=== PATIENT | female | born 1955 | race Caucasian/White ===

== ENCOUNTER → 2018-03-30 12:34 | Outpatient (CLI) | payer OTHER, MEDICAID, SELFPAY ==
--- NOTE | 2018-03-30 | DI.MG.S_ITS ---
BILATERAL DIGITAL SCREENING MAMMOGRAM 3D/2D WITH CAD: 03/30/2018 CLINICAL: Routine screening. Family history of breast cancer. Comparison is made to exams dated: 03/24/2017 mammogram, 05/12/2015 mammogram, and 05/08/2014 mammogram - [facility]. The tissue of both breasts is heterogeneously dense. This may lower the sensitivity of mammography. Current study was also evaluated with a Computer Aided Detection (CAD) system. No significant masses, calcifications, or other findings are seen in either breast. There has been no significant interval change. IMPRESSION: NEGATIVE There is no mammographic evidence of malignancy. A 1 year screening mammogram is recommended. This exam was interpreted at Station ID: [id number]. NOTE: For mammograms, a report in lay terms will be sent to the patient. Approximately 15% of breast malignancies will not be visualized mammographically. In the management of a palpable breast mass, a negative mammogram must not discourage biopsy of a clinically suspicious lesion. Electronically Signed By: Albin gracia/agli:03/30/2018 17:06:12 letter sent: Normal Exam ACR BI-RADS Category 1: Negative [id number]
== END ==
PROVIDERS: PCP Family Medicine; Visit Provider Nurse Practitioner Family
DX: Z12.31 Encounter for screening mammogram for malignant neoplasm of breast (principal); Z80.3 Family history of malignant neoplasm of breast
CPT/HCPCS: 77063; 77067

== ENCOUNTER → 2018-09-03 09:11 | Outpatient (CLI) | payer OTHER, SELFPAY ==
--- NOTE | 2018-09-03 | DI.US.S_ITS ---
PROCEDURE: US PELVIC COMPLETE INDICATIONS: CERVICAL POLYP TECHNIQUE: Real-time scanning was performed of the pelvic organs, with image documentation. Additional endovaginal scanning was necessary due to incomplete visualization of the adnexal and endometrial structures by transabdominal scanning. COMPARISON: None. FINDINGS: Transabdominal scanning: Limited scanning through the kidneys shows no hydronephrosis. No pathologic free abdominal or pelvic fluid. Anteverted uterus measures 6.5 x 2.9 x 3.7 cm. Endovaginal scanning: Uterus: Uterus is normal in size. The endometrium measures 1.9 mm in combined thickness. Trace amount of simple fluid is seen within the endometrial canal. No myometrial masses. The cervix has a sonographically normal appearance. No significant endocervical fluid or mass visible. Ovaries: Neither ovary was well seen. No suspicious adnexal masses. Fluid-filled bowel loops are present. IMPRESSION: 1. Normal sonographic appearance of the cervix. 2. Thin endometrium with trace amounts of simple fluid. 3. Nonvisualization of either ovary. Dictated by: Aleyda Colbert M.D. on 09/03/2018 at 10:24 Approved by: Aleyda Colbert M.D. on 09/03/2018 at 10:27
== END ==
PROVIDERS: PCP Family Medicine; Visit Provider Nurse Practitioner Family
DX: N84.1 Polyp of cervix uteri (principal)
CPT/HCPCS: 76856

== ENCOUNTER → 2018-12-07 11:52 | Outpatient (CLI) | payer OTHER, SELFPAY ==
--- NOTE | 2018-12-07 | DI.RAD.S_ITS ---
PROCEDURE: XR KNEE RT 3V INDICATIONS: TWISTED KNEE/SWELLING/PAIN TECHNIQUE: 3 views of the knee were acquired. COMPARISON: [facility], , KNEE 3V LEFT, 08/02/2007, 10:48. FINDINGS: Bones: No fractures or dislocations. No suspicious bony lesions. Scattered degenerative subchondral sclerosis and spurring. No definite joint space narrowing Soft tissues: No joint effusion. No suspicious soft tissue calcifications. IMPRESSION: No fracture. Mild joint degeneration. If the patient's pain or other symptoms persist, consider further evaluation with MRI Dictated by: Uche Potts M.D. on 12/07/2018 at 13:00 Approved by: Uche Potts M.D. on 12/07/2018 at 13:02
== END ==
PROVIDERS: PCP Nurse Practitioner Family; Visit Provider Nurse Practitioner Family
DX: M25.561 Pain in right knee (principal); M25.461 Effusion, right knee; M17.11 Unilateral primary osteoarthritis, right knee
CPT/HCPCS: 73562

== ENCOUNTER 2019-02-05 08:15 | Outpatient (RCR) | payer OTHER, SELFPAY ==
--- NOTE | 2018-10-09 15:40 | PT.OIE ---
Current Diagnoses Frequency of micturition (10/12/18) Provider Visit Care Team Role Provider Type SANDRA Miranda Attending Provider Non-Staff Primary Care Provider Specialty: Medical Address: [address] [place] [address], [id number] Email: Physical Therapy Initial Evaluation PT-OP-A Visit Information Start: 10/09/18 11:23 Freq: Status: Active Protocol: Document 10/09/18 11:24 LRN (Rec: 10/09/18 11:36 LRN [id number]) Out-Patient Physical Therapy Visit Information Visit Information Visit Type Treatment Note Visit Start Time 11:24 Visit Stop Time 12:15 Total Visit Minutes 51 Visit Number 1 Number of TURN LASTER Visits 0 Evaluation Information Evaluation Date 10/09/18 Precautions Precautions Hx of , adenoidectomy , tubal ligation, D&C. PT-OP-B Current Condition Start: 10/09/18 11:23 Freq: Status: Active Protocol: Document 10/09/18 11:24 LRN (Rec: 10/09/18 11:36 LRN [id number]) Current Condition History of Current Condition Onset Date 1 yr ago. Current Complaints Urgency to urinate sometimes. History of Current Condition With Oxybutynin now able to sleep through the night. History of 2 children. C- section first and episiotomy with 2nd. Tubal ligation - early 's. D & C. Prior Treatments and Tests Pelvic ultrasound for cyst on ovaries (found to be negative( . Developmental History Developmental History Long history of UTI for 15 yrs , and was taken off medications 4-5 yrs ago, then starting to have urgency and was put on Oxybutynin 1 yr ago for the urge. She has felt like she had a UTI, but tests were negative (was feeling urgency and burning with urination). Last summer was getting up 5-6 times/night. Treatment Goals Patient/Caregiver Goals Pt goal with therapy is to decrease number of times urinating during the day. 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 Current Functional Impairments (Reported) Functional Limitations- Other Limited in activities outside the home due to frequency of urination. Personal Factors Other Personal Factors That May Effect History of tubal ligation, D&C Therapy/Recovery , Anxiety controlled with medication Medication: Oxybutynin chloride PT-OP-C Subjective Start: 10/09/18 11:23 Freq: Status: Active Protocol: Document 10/09/18 11:24 LRN (Rec: 10/09/18 16:24 LRN [id number]) OP-PT Pain Assessment Comments Pain Comments Pt denies pain, except with palpation of PF internally on assessment. PT-OP-H Neuro Start: 10/09/18 11:23 Freq: Status: Active Protocol: Document 10/09/18 11:24 LRN (Rec: 10/09/18 16:24 LRN [id number]) Sensation Evaluation Comments Summary Comments Not formally assessed. Pt noted not feeling hardened stool in perineum. PT-OP-I Pelvic Floor Start: 10/09/18 11:23 Freq: Status: Active Protocol: Document 10/09/18 11:24 LRN (Rec: 10/09/18 16:24 LRN [id number]) Pelvic Floor Assessment Urine Pelvic Floor Surgery No Urinary Symptoms Urge Sensation Leakage Cause Exercise Voiding Frequency 6 times per day Nocturia 2 Bowel Bowel Symptoms Constipation Pelvic Clock Pelvic Clock 3-6 Tenderness Prolapse Cystocele Grade 2 Perineal Descent Resting Absent Bearing Present Contraction Ability Voluntary Contraction Absent Manual Muscle Testing Left 0 Manual Muscle Testing Right 0 Manual Muscle Testing Anterior 0 Manual Muscle Testing Posterior 0 Comments Pelvic Floor Comments Pt assists with gluteal and hip AD muscles PT-OP-J Posture/Palpation/Skin Start: 10/09/18 11:23 Freq: Status: Active Protocol: Document 10/09/18 11:24 LRN (Rec: 10/09/18 17:03 LRN [id number]) Posture Evaluation Comments Posture Comments Standing: Pt demonstrates moderate forward head posturing, increased lordosis, elevated R shoulder and scapula, C-curve of the spine with the apex on the right, level pelvis. PT-OP-K Range of Motion Start: 10/09/18 11:23 Freq: Status: Active Protocol: Document 10/09/18 11:24 LRN (Rec: 10/09/18 17:03 LRN [id number]) Hip Goniometric Range of Motion Hip Right Passive Testing Position Supine Flexion w/Knee Flexed 90 Extension 5 Abduction 30 Internal Rotation 30 External Rotation 60 Left Passive Testing Position Supine Flexion w/Knee Flexed 90 Extension 3 Abduction 22 Internal Rotation 45 External Rotation 55 PT-OP-M Strength Start: 10/09/18 11:23 Freq: Status: Active Protocol: Document 10/09/18 11:24 LRN (Rec: 10/09/18 17:03 LRN [id number]) Trunk Strength Trunk Manual Muscle Testing Testing Position Supine Flexion 4 Good Rotation Left 4 Good Rotation Right 3 Fair Core Stabilization Pt unable to maintain core stability during MMT of LE's. Hip Strength Hip Manual Muscle Testing Right Flexion (L2) 4+ Good+ Extension (S1) 3 Fair Abduction 5 Normal Adduction 5 Normal External Rotation 5 Normal Internal Rotation 4+ Good+ Left Flexion (L2) 4 Good Extension (S1) 3 Fair Adduction 4+ Good+ External Rotation 4+ Good+ Internal Rotation 4+ Good+ PT-OP-Q Treatments Start: 10/09/18 11:23 Freq: Status: Active Protocol: Document 10/09/18 11:24 LRN (Rec: 10/09/18 16:59 LRN [id number]) Therapeutic Exercises Supine Exercises Deep Breathing Supine Exercise Name Deep Breathing with verbal and physical cuing Reps/Minutes 4' Comments Pt not able to perform correctly. Sitting Exercises Deep Breathing Sitting Exercise Name Deep Breathing with verbal and physical cuing Reps/Minutes 4' Comments Pt not able to perform correctly. Self-Care/Home Management Treatment Education Patient Education Home Exercise Program Other Education Educated pt in Bladder Diary to be completed for next appointment. Activities Self-Care/Home Management Activities Issued and reviewed HEP: Deep Breathing. PT-OP-T Assessment and Plan Start: 10/09/18 11:23 Freq: Status: Active Protocol: Document 10/09/18 11:24 LRN (Rec: 10/09/18 16:59 LRN [id number]) Physical Therapy Assessment Rehab Potential Rehabilitation Potential Good Evaluation Complexity Number of Personal Factors/Comorbidities 1-2 Number of Body Systems Impaired 3 Clinical Presentation at Evaluation Stable Impairments Impairments Posture ROM Sensation Strength Other Concerns Barriers to Rehabilitation Chronicity of condition Poor PF awareness Goals Five Impairment Pt not able to perform deep breathing properly Short Term Goal (STG) Pt will be able to demonstrate proper deep breathing STG Duration 11/06/18 Four Impairment PF weakness of 0/5 Custom Feed Mill Operator Goal (LTG) Pt will demonstrate a PF strength of at least 2/5 of the pelvic floor clock. LTG Duration 01/01/19 Three Impairment Symptoms of Urgency with urination due to weak sphincter muscles Short Term Goal (STG) Improve PF strength to 1/5. STG Duration 11/06/18 Custom Feed Mill Operator Goal (LTG) Improve PF superficial strength in order to identify a need for urination without urgency. LTG Duration 12/04/18 Two Impairment Poor awareness of a proper PF contraction Short Term Goal (STG) Pt will be able to identify a proper PF contraction. STG Duration 11/06/18 One Impairment Lacks appropriate self care HEP Custom Feed Mill Operator Goal (LTG) Pt will be independent with a self care HEP. LTG Duration 01/01/19 Assessment Summary Assessment Pt presents with no palpable contraction of the superficial or deep pelvic floor (PF) muscles. She uses her gluteal and hip adductors when performing a contraction. There is some tenderness of the PF clock in the 3-6 O' Clock region, but not severe. She had a harmeet of stool (~1/ 2 inch square) in the fold of her buttocks that she did not feel; therefore she may have some sensation loss in the area. I will assess this at a later date. The pt is unable to deep breath properly (to engage parasympathetic system) , even after much time was spent on training in both supine and sitting position. It is expected that rehabilitation will be prolonged due to the severity of her weakness and the lack of awareness in her pelvic floor with muscle contraction and possibly sensation, and difficulty in being able to downtrain her sympathetic system. The pt will benefit from skilled physical therapy for neuro reeducation of proper deep breathing; PF, core and hip strengthening; postural training; and urinary urge rehabilitation. I would recommend the pt be monitored for use of Oxybutynin and slowly weaned off to help determine whether her urgency is more closely related to bladder irritation vs bladder spasms. The pt may need a nutrition consult to help her address constipation issues if not corrected by changes in her fluid intake. Physical Therapy Plan Frequency and Duration Frequency of Treatment 2x/Week Plan of Care Start Date 10/09/18 Plan of Care End Date 01/01/19 Therapeutic Interventions Therapeutic Interventions Home Exercise Program Manual Therapy Neuromuscular Re-education Patient/Caregiver Education Self-Care/Home Management Soft Tissue Mobilization Therapeutic Exercises Other Referrals/Consults Referrals/Consults Recommended Patch Sander to help with constipation. Next Visit Focus/Plan Next Note Type Treatment Note Next Visit Plan Review Bladder Diary and initiate bladder retraining as needed. Training for proper deep breathing. Assess sensation of the external perineum and initiate PF training with verbal and physical cuing. Assess appropriateness (skin condition) of use of vaginal electrode for EMG biofeedback. Discuss bowel function and possible hindrance to bladder training. Start Kegel ex once pt is able to perform a PF contraction, and progress as appropriate. Review shoulder injury as it relates to core strengthening.
--- NOTE | 2018-10-09 15:40 | PT.OIE ---
Current Diagnoses Muscle weakness (generalized) (10/12/18) Other symptoms and signs involving the musculoskeletal system (10/12/18) Frequency of micturition (10/12/18) Provider Visit Care Team Role Provider Type SANDRA Miranda Attending Provider Non-Staff Primary Care Provider Specialty: Medical Address: [address] [place] [address], [id number] Email: Physical Therapy Initial Evaluation PT-OP-A Visit Information Start: 10/09/18 11:23 Freq: Status: Active Protocol: Document 10/09/18 11:24 LRN (Rec: 10/09/18 11:36 LRN [id number]) Out-Patient Physical Therapy Visit Information Visit Information Visit Type Initial Evaluation Visit Start Time 11:24 Visit Stop Time 12:15 Total Visit Minutes 51 Visit Number 1 Number of DRILL PRESS OPERATOR NUMERICAL CONTROL Visits 0 Evaluation Information Evaluation Date 10/09/18 Precautions Precautions Hx of , adenoidectomy , tubal ligation, D&C. PT-OP-B Current Condition Start: 10/09/18 11:23 Freq: Status: Active Protocol: Document 10/09/18 11:24 LRN (Rec: 10/09/18 11:36 LRN [id number]) Current Condition History of Current Condition Onset Date 1 yr ago. Current Complaints Urgency to urinate sometimes. History of Current Condition With Oxybutynin now able to sleep through the night. History of 2 children. C- section first and episiotomy with 2nd. Tubal ligation - early 's. D & C. Prior Treatments and Tests Pelvic ultrasound for cyst on ovaries (found to be negative( . Developmental History Developmental History Long history of UTI for 15 yrs , and was taken off medications 4-5 yrs ago, then starting to have urgency and was put on Oxybutynin 1 yr ago for the urge. She has felt like she had a UTI, but tests were negative (was feeling urgency and burning with urination). Last summer was getting up 5-6 times/night. Treatment Goals Patient/Caregiver Goals Pt goal with therapy is to decrease number of times urinating during the day. 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 Current Functional Impairments (Reported) Functional Limitations- Other Limited in activities outside the home due to frequency of urination. Personal Factors Other Personal Factors That May Effect History of tubal ligation, D&C Therapy/Recovery , Anxiety controlled with medication Medication: Oxybutynin chloride PT-OP-C Subjective Start: 10/09/18 11:23 Freq: Status: Active Protocol: Document 10/09/18 11:24 LRN (Rec: 10/09/18 16:24 LRN [id number]) OP-PT Pain Assessment Comments Pain Comments Pt denies pain, except with palpation of PF internally on assessment. PT-OP-H Neuro Start: 10/09/18 11:23 Freq: Status: Active Protocol: Document 10/09/18 11:24 LRN (Rec: 10/09/18 16:24 LRN [id number]) Sensation Evaluation Comments Summary Comments Not formally assessed. Pt noted not feeling hardened stool in perineum. PT-OP-I Pelvic Floor Start: 10/09/18 11:23 Freq: Status: Active Protocol: Document 10/09/18 11:24 LRN (Rec: 10/09/18 16:24 LRN [id number]) Pelvic Floor Assessment Urine Pelvic Floor Surgery No Urinary Symptoms Urge Sensation Leakage Cause Exercise Voiding Frequency 6 times per day Nocturia 2 Bowel Bowel Symptoms Constipation Pelvic Clock Pelvic Clock 3-6 Tenderness Prolapse Cystocele Grade 2 Perineal Descent Resting Absent Bearing Present Contraction Ability Voluntary Contraction Absent Manual Muscle Testing Left 0 Manual Muscle Testing Right 0 Manual Muscle Testing Anterior 0 Manual Muscle Testing Posterior 0 Comments Pelvic Floor Comments Pt assists with gluteal and hip AD muscles PT-OP-J Posture/Palpation/Skin Start: 10/09/18 11:23 Freq: Status: Active Protocol: Document 10/09/18 11:24 LRN (Rec: 10/09/18 17:03 LRN [id number]) Posture Evaluation Comments Posture Comments Standing: Pt demonstrates moderate forward head posturing, increased lordosis, elevated R shoulder and scapula, C-curve of the spine with the apex on the right, level pelvis. PT-OP-K Range of Motion Start: 10/09/18 11:23 Freq: Status: Active Protocol: Document 10/09/18 11:24 LRN (Rec: 10/09/18 17:03 LRN [id number]) Hip Goniometric Range of Motion Hip Right Passive Testing Position Supine Flexion w/Knee Flexed 90 Extension 5 Abduction 30 Internal Rotation 30 External Rotation 60 Left Passive Testing Position Supine Flexion w/Knee Flexed 90 Extension 3 Abduction 22 Internal Rotation 45 External Rotation 55 PT-OP-M Strength Start: 10/09/18 11:23 Freq: Status: Active Protocol: Document 10/09/18 11:24 LRN (Rec: 10/09/18 17:03 LRN [id number]) Trunk Strength Trunk Manual Muscle Testing Testing Position Supine Flexion 4 Good Rotation Left 4 Good Rotation Right 3 Fair Core Stabilization Pt unable to maintain core stability during MMT of LE's. Hip Strength Hip Manual Muscle Testing Right Flexion (L2) 4+ Good+ Extension (S1) 3 Fair Abduction 5 Normal Adduction 5 Normal External Rotation 5 Normal Internal Rotation 4+ Good+ Left Flexion (L2) 4 Good Extension (S1) 3 Fair Adduction 4+ Good+ External Rotation 4+ Good+ Internal Rotation 4+ Good+ PT-OP-Q Treatments Start: 10/09/18 11:23 Freq: Status: Active Protocol: Document 10/09/18 11:24 LRN (Rec: 10/09/18 16:59 LRN [id number]) Therapeutic Exercises Supine Exercises Deep Breathing Supine Exercise Name Deep Breathing with verbal and physical cuing Reps/Minutes 4' Comments Pt not able to perform correctly. Sitting Exercises Deep Breathing Sitting Exercise Name Deep Breathing with verbal and physical cuing Reps/Minutes 4' Comments Pt not able to perform correctly. Self-Care/Home Management Treatment Education Patient Education Home Exercise Program Other Education Educated pt in Bladder Diary to be completed for next appointment. Activities Self-Care/Home Management Activities Issued and reviewed HEP: Deep Breathing. PT-OP-T Assessment and Plan Start: 10/09/18 11:23 Freq: Status: Active Protocol: Document 10/09/18 11:24 LRN (Rec: 10/09/18 16:59 LRN [id number]) Physical Therapy Assessment Rehab Potential Rehabilitation Potential Good Evaluation Complexity Number of Personal Factors/Comorbidities 1-2 Number of Body Systems Impaired 3 Clinical Presentation at Evaluation Stable Impairments Impairments Posture ROM Sensation Strength Other Concerns Barriers to Rehabilitation Chronicity of condition Poor PF awareness Goals Five Impairment Pt not able to perform deep breathing properly Short Term Goal (STG) Pt will be able to demonstrate proper deep breathing STG Duration 11/06/18 Four Impairment PF weakness of 0/5 Warp Dyeing Vat Tender Goal (LTG) Pt will demonstrate a PF strength of at least 2/5 of the pelvic floor clock. LTG Duration 01/01/19 Three Impairment Symptoms of Urgency with urination due to weak sphincter muscles Short Term Goal (STG) Improve PF strength to 1/5. STG Duration 11/06/18 Fdc Goal (LTG) Improve PF superficial strength in order to identify a need for urination without urgency. LTG Duration 12/04/18 Two Impairment Poor awareness of a proper PF contraction Short Term Goal (STG) Pt will be able to identify a proper PF contraction. STG Duration 11/06/18 One Impairment Lacks appropriate self care HEP Fdc Goal (LTG) Pt will be independent with a self care HEP. LTG Duration 01/01/19 Assessment Summary Assessment Pt presents with no palpable contraction of the superficial or deep pelvic floor (PF) muscles. She uses her gluteal and hip adductors when performing a contraction. There is some tenderness of the PF clock in the 3-6 O' Clock region, but not severe. She had a harmeet of stool (~1/ 2 inch square) in the fold of her buttocks that she did not feel; therefore she may have some sensation loss in the area. I will assess this at a later date. The pt is unable to deep breath properly (to engage parasympathetic system) , even after much time was spent on training in both supine and sitting position. It is expected that rehabilitation will be prolonged due to the severity of her weakness and the lack of awareness in her pelvic floor with muscle contraction and possibly sensation, and difficulty in being able to downtrain her sympathetic system. The pt will benefit from skilled physical therapy for neuro reeducation of proper deep breathing; PF, core and hip strengthening; postural training; and urinary urge rehabilitation. I would recommend the pt be monitored for use of Oxybutynin and slowly weaned off to help determine whether her urgency is more closely related to bladder irritation vs bladder spasms. The pt may need a nutrition consult to help her address constipation issues if not corrected by changes in her fluid intake. Physical Therapy Plan Frequency and Duration Frequency of Treatment 2x/Week Plan of Care Start Date 10/09/18 Plan of Care End Date 01/01/19 Therapeutic Interventions Therapeutic Interventions Home Exercise Program Manual Therapy Neuromuscular Re-education Patient/Caregiver Education Self-Care/Home Management Soft Tissue Mobilization Therapeutic Exercises Other Referrals/Consults Referrals/Consults Recommended Secondary School Teacher Librarian to help with constipation. Next Visit Focus/Plan Next Note Type Treatment Note Next Visit Plan Review Bladder Diary and initiate bladder retraining as needed. Training for proper deep breathing. Assess sensation of the external perineum and initiate PF training with verbal and physical cuing. Assess appropriateness (skin condition) of use of vaginal electrode for EMG biofeedback. Discuss bowel function and possible hindrance to bladder training. Start Kegel ex once pt is able to perform a PF contraction, and progress as appropriate. Review shoulder injury as it relates to core strengthening.
--- NOTE | 2018-10-12 16:15 | PT.OTN ---
Current Diagnoses Muscle weakness (generalized) (10/12/18) Other symptoms and signs involving the musculoskeletal system (10/12/18) Frequency of micturition (10/12/18) Physical Therapy Treatment Note PT-OP-A Visit Information Start: 10/09/18 11:23 Freq: Status: Active Protocol: Document 10/12/18 10:37 LRN (Rec: 10/12/18 16:15 LRN [id number]) Out-Patient Physical Therapy Visit Information Visit Information Visit Type Treatment Note Visit Start Time 10:37 Visit Stop Time 11:18 Total Visit Minutes 41 Visit Number 2 Number of SUPERVISOR [employer]ACING Visits 0 Evaluation Information Evaluation Date 10/09/18 Precautions Precautions Hx of , adenoidectomy , tubal ligation, D&C. PT-OP-B Current Condition Start: 10/09/18 11:23 Freq: Status: Active Protocol: Document 10/09/18 11:24 LRN (Rec: 10/09/18 11:36 LRN [id number]) Current Condition History of Current Condition Onset Date 1 yr ago. Current Complaints Urgency to urinate sometimes. History of Current Condition With Oxybutynin now able to sleep through the night. History of 2 children. C- section first and episiotomy with 2nd. Tubal ligation - early 's. D & C. Prior Treatments and Tests Pelvic ultrasound for cyst on ovaries (found to be negative( . Developmental History Developmental History Long history of UTI for 15 yrs , and was taken off medications 4-5 yrs ago, then starting to have urgency and was put on Oxybutynin 1 yr ago for the urge. She has felt like she had a UTI, but tests were negative (was feeling urgency and burning with urination). Last summer was getting up 5-6 times/night. Treatment Goals Patient/Caregiver Goals Pt goal with therapy is to decrease number of times urinating during the day. 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 Current Functional Impairments (Reported) Functional Limitations- Other Limited in activities outside the home due to frequency of urination. Personal Factors Other Personal Factors That May Effect History of tubal ligation, D&C Therapy/Recovery , Anxiety controlled with medication Medication: Oxybutynin chloride PT-OP-C Subjective Start: 10/09/18 11:23 Freq: Status: Active Protocol: Document 10/12/18 10:37 LRN (Rec: 10/12/18 16:15 LRN [id number]) OP-PT Subjective Patient Comments Patient Comments States she has been practicing breathing and did her bladder diary the past few days. PT-OP-H Neuro Start: 10/09/18 11:23 Freq: Status: Active Protocol: Document 10/09/18 11:24 LRN (Rec: 10/09/18 16:24 LRN [id number]) Sensation Evaluation Comments Summary Comments Not formally assessed. Pt noted not feeling hardened stool in perineum. PT-OP-I Pelvic Floor Start: 10/09/18 11:23 Freq: Status: Active Protocol: Document 10/09/18 11:24 LRN (Rec: 10/09/18 16:24 LRN [id number]) Pelvic Floor Assessment Urine Pelvic Floor Surgery No Urinary Symptoms Urge Sensation Leakage Cause Exercise Voiding Frequency 6 times per day Nocturia 2 Bowel Bowel Symptoms Constipation Pelvic Clock Pelvic Clock 3-6 Tenderness Prolapse Cystocele Grade 2 Perineal Descent Resting Absent Bearing Present Contraction Ability Voluntary Contraction Absent Manual Muscle Testing Left 0 Manual Muscle Testing Right 0 Manual Muscle Testing Anterior 0 Manual Muscle Testing Posterior 0 Comments Pelvic Floor Comments Pt assists with gluteal and hip AD muscles PT-OP-J Posture/Palpation/Skin Start: 10/09/18 11:23 Freq: Status: Active Protocol: Document 10/09/18 11:24 LRN (Rec: 10/09/18 17:03 LRN [id number]) Posture Evaluation Comments Posture Comments Standing: Pt demonstrates moderate forward head posturing, increased lordosis, elevated R shoulder and scapula, C-curve of the spine with the apex on the right, level pelvis. PT-OP-K Range of Motion Start: 10/09/18 11:23 Freq: Status: Active Protocol: Document 10/09/18 11:24 LRN (Rec: 10/09/18 17:03 LRN [id number]) Hip Goniometric Range of Motion Hip Right Passive Testing Position Supine Flexion w/Knee Flexed 90 Extension 5 Abduction 30 Internal Rotation 30 External Rotation 60 Left Passive Testing Position Supine Flexion w/Knee Flexed 90 Extension 3 Abduction 22 Internal Rotation 45 External Rotation 55 PT-OP-M Strength Start: 10/09/18 11:23 Freq: Status: Active Protocol: Document 10/09/18 11:24 LRN (Rec: 10/09/18 17:03 LRN [id number]) Trunk Strength Trunk Manual Muscle Testing Testing Position Supine Flexion 4 Good Rotation Left 4 Good Rotation Right 3 Fair Core Stabilization Pt unable to maintain core stability during MMT of LE's. Hip Strength Hip Manual Muscle Testing Right Flexion (L2) 4+ Good+ Extension (S1) 3 Fair Abduction 5 Normal Adduction 5 Normal External Rotation 5 Normal Internal Rotation 4+ Good+ Left Flexion (L2) 4 Good Extension (S1) 3 Fair Adduction 4+ Good+ External Rotation 4+ Good+ Internal Rotation 4+ Good+ PT-OP-Q Treatments Start: 10/09/18 11:23 Freq: Status: Active Protocol: Document 10/12/18 10:37 LRN (Rec: 10/12/18 16:15 LRN [id number]) Therapeutic Exercises Supine Exercises Deep Breathing Supine Exercise Name Deep Breathing with verbal and physical cuing Reps/Minutes 15'' Comments Pt was able to perform correctly by end of training with difficulty. Self-Care/Home Management Treatment Education Patient Education Home Exercise Program Other Education Reviewed and discussed at length her bladder diary, fluid intake/output, bladder irritants, timing of fluid intake, nighttime vs daytime, effect on bowel system and areas of needed change. Activities Self-Care/Home Management Activities Discussed at length what to change (types of fluids) and when to change. Issued and reviewed Urge Deference techique with education in when to use and expecatation of results depending on fluid input/output. I/S pt to continue to progress to proper deep breathing and incorportation into urge deference techique. PT-OP-T Assessment and Plan Start: 10/09/18 11:23 Freq: Status: Active Protocol: Document 10/12/18 10:37 LRN (Rec: 10/12/18 16:15 LRN [id number]) Physical Therapy Assessment Assessment Summary Assessment It is clear after review of bladder diary that the pt's fluid intake is mostly badder irritating (caffeine) and not enough non-irritating fluids. This may also be partly a cause of her constipation. It is expected that the pt may have a system that is uptrained due to her persistent urgency and constipation; therefore the pt needed prolonged training in fluid balance of her system. She is slowly being able to change the way she is deep breathing, but it is apparent that her system is automatic for chest breathing and further training is needed. Her medication may hinder her progress and will need to be monitored if no changes are noted. Assessment of her external PF sensation was deferred due to the extensive education and ex training needed this session. Physical Therapy Plan Frequency and Duration Frequency of Treatment 2x/Week Duration of Treatment 15 visits to date Plan of Care Start Date 10/09/18 Plan of Care End Date 01/01/19 Next Visit Focus/Plan Next Note Type Treatment Note Next Visit Plan Review Bladder Diary as related to the pt's home fluid exchange changes. Proper deep breathing progression. Assessment of sensation of the external perineum and check for abdominal soft tissue restrictions. Initiate PF training with verbal and physical cuing & EMG biofeedback assessment and neur reeducation of proper PF contraction. Discuss bowel function and possible hindrance to bladder training. Start Kegel ex once pt is able to perform a PF contraction, and progress as appropriate. Review shoulder injury as it relates to core strengthening.
--- NOTE | 2018-10-19 11:15 | PT.OTN ---
Current Diagnoses Muscle weakness (generalized) (10/19/18) Other symptoms and signs involving the musculoskeletal system (10/19/18) Frequency of micturition (10/19/18) Physical Therapy Treatment Note PT-OP-A Visit Information Start: 10/09/18 11:23 Freq: Status: Active Protocol: Document 10/19/18 09:55 LRN (Rec: 10/19/18 11:15 LRN [id number]) Out-Patient Physical Therapy Visit Information Visit Information Visit Type Treatment Note Visit Start Time 09:55 Visit Stop Time 10:45 Total Visit Minutes 50 Visit Number 3 Number of FOOD PROCESSING CHEMIST Visits 0 Evaluation Information Evaluation Date 10/09/18 Precautions Precautions Hx of , adenoidectomy , tubal ligation, D&C. PT-OP-B Current Condition Start: 10/09/18 11:23 Freq: Status: Active Protocol: Document 10/09/18 11:24 LRN (Rec: 10/09/18 11:36 LRN [id number]) Current Condition History of Current Condition Onset Date 1 yr ago. Current Complaints Urgency to urinate sometimes. History of Current Condition With Oxybutynin now able to sleep through the night. History of 2 children. C- section first and episiotomy with 2nd. Tubal ligation - early 's. D & C. Prior Treatments and Tests Pelvic ultrasound for cyst on ovaries (found to be negative( . Developmental History Developmental History Long history of UTI for 15 yrs , and was taken off medications 4-5 yrs ago, then starting to have urgency and was put on Oxybutynin 1 yr ago for the urge. She has felt like she had a UTI, but tests were negative (was feeling urgency and burning with urination). Last summer was getting up 5-6 times/night. Treatment Goals Patient/Caregiver Goals Pt goal with therapy is to decrease number of times urinating during the day. 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 Current Functional Impairments (Reported) Functional Limitations- Other Limited in activities outside the home due to frequency of urination. Personal Factors Other Personal Factors That May Effect History of tubal ligation, D&C Therapy/Recovery , Anxiety controlled with medication Medication: Oxybutynin chloride PT-OP-C Subjective Start: 10/09/18 11:23 Freq: Status: Active Protocol: Document 10/19/18 09:55 LRN (Rec: 10/19/18 11:15 LRN [id number]) OP-PT Subjective Patient Comments Patient Comments States the burning in the mornings are 90% eliminated. Drinking more fluids, drinking 2 cups a day in the morning. PT-OP-H Neuro Start: 10/09/18 11:23 Freq: Status: Active Protocol: Document 10/09/18 11:24 LRN (Rec: 10/09/18 16:24 LRN [id number]) Sensation Evaluation Comments Summary Comments Not formally assessed. Pt noted not feeling hardened stool in perineum. PT-OP-I Pelvic Floor Start: 10/09/18 11:23 Freq: Status: Active Protocol: Document 10/19/18 09:55 LRN (Rec: 10/19/18 11:15 LRN [id number]) Pelvic Floor Assessment SEMG (uV) Baseline 1.9 Quick Contraction 6.4 10 Second Contraction 2.0 Recruitment Pattern Fair Relaxation Fair Holding Poor/Slow Stability of Hold Poor/Slow SEMG Stability of Rest Good PT-OP-J Posture/Palpation/Skin Start: 10/09/18 11:23 Freq: Status: Active Protocol: Document 10/09/18 11:24 LRN (Rec: 10/09/18 17:03 LRN [id number]) Posture Evaluation Comments Posture Comments Standing: Pt demonstrates moderate forward head posturing, increased lordosis, elevated R shoulder and scapula, C-curve of the spine with the apex on the right, level pelvis. PT-OP-K Range of Motion Start: 10/09/18 11:23 Freq: Status: Active Protocol: Document 10/09/18 11:24 LRN (Rec: 10/09/18 17:03 LRN [id number]) Hip Goniometric Range of Motion Hip Right Passive Testing Position Supine Flexion w/Knee Flexed 90 Extension 5 Abduction 30 Internal Rotation 30 External Rotation 60 Left Passive Testing Position Supine Flexion w/Knee Flexed 90 Extension 3 Abduction 22 Internal Rotation 45 External Rotation 55 PT-OP-M Strength Start: 10/09/18 11:23 Freq: Status: Active Protocol: Document 06/11/19 11:24 LRN (Rec: 10/09/18 17:03 LRN [id number]) Trunk Strength Trunk Manual Muscle Testing Testing Position Supine Flexion 4 Good Rotation Left 4 Good Rotation Right 3 Fair Core Stabilization Pt unable to maintain core stability during MMT of LE's. Hip Strength Hip Manual Muscle Testing Right Flexion (L2) 4+ Good+ Extension (S1) 3 Fair Abduction 5 Normal Adduction 5 Normal External Rotation 5 Normal Internal Rotation 4+ Good+ Left Flexion (L2) 4 Good Extension (S1) 3 Fair Adduction 4+ Good+ External Rotation 4+ Good+ Internal Rotation 4+ Good+ PT-OP-Q Treatments Start: 10/09/18 11:23 Freq: Status: Active Protocol: Document 10/19/18 09:55 LRN (Rec: 10/19/18 11:15 LRN [id number]) Therapeutic Exercises Supine Exercises Deep Breathing Supine Exercise Name Deep Breathing with verbal and physical cuing Reps/Minutes 10'' Comments Pt was not able to perform correctly by end of training, but pt educated. Neuro Re-Education Treatment Other Activities EMG Biofeedback Details Resting, Quick Flicks, Long holds, PF awareness, Isolation of PF Reps/Duration 25' Comments 10/19/18: Quick Flicks Avg Work 6.4 mV's, Avg Rest 3.5 mV 's (missed 1st contraction). Long Holds Avg Work 2.0 mV's, Avg Rest 1.0 mV's. V Cuing needed to help pt isolate PF without use of Abdominals, hip AD's, breath holding, and arms overhead. No use of Gluteals noted. Self-Care/Home Management Treatment Education Patient Education Home Exercise Program Other Education Reviewed and discussed Bladder Diary and changes to self care routine for fluid intake (H2O intake & consistency) and discussed briefly bladder retraining needed. Activities Self-Care/Home Management Activities Issued & reviewed HEP: Kegels for Quick Flicks and Long Holds, and brief review of Deep breathing & LE roll in/ outs (to continue). PT-OP-T Assessment and Plan Start: 10/09/18 11:23 Freq: Status: Active Protocol: Document 10/19/18 09:55 LRN (Rec: 10/19/18 11:15 LRN [id number]) Physical Therapy Assessment Assessment Summary Assessment Pt improved in abdominal excursion with deep breathing, but tends to arch her back rather than open up abdomen. She is quick with breathing and tends to move quite a bit at the chest still. Her PF strength is weak (quick flicks avg work 6.4mV's) and her endurance is poor with being able to hold only 1 sec before fatigue (Avg work 2.0 mV's). When Isolating the PF the avg work is 1.0mV's. With changes to her caffeine intake the pt shows good improvement with no longer experiencing burning pain with urination, and occasionally decreasing her voiding frequency to 2 hours in the evening Physical Therapy Plan Frequency and Duration Frequency of Treatment 2x/Week Duration of Treatment 15 visits to date Plan of Care Start Date 10/09/18 Plan of Care End Date 01/01/19 Next Visit Focus/Plan Next Note Type Treatment Note Next Visit Plan Review Bladder Diary as related to the pt's voiding frequency. Proper deep breathing progression. Assessment of sensation of the external perineum and check for abdominal soft tissue restrictions. Initiate PF training with verbal and physical cuing & EMG biofeedback neur reeducation of isolating PF contraction. Discuss bowel function and possible hindrance to bladder training. Check if pt is able to perform a PF contraction properly, and progress as appropriate with use of E-Stim for awareness if needed. Review shoulder injury as it relates to core strengthening.
--- NOTE | 2018-11-05 12:23 | PT.OTN ---
Current Diagnoses Muscle weakness (generalized) (11/05/18) Other symptoms and signs involving the musculoskeletal system (11/05/18) Frequency of micturition (11/05/18) Physical Therapy Treatment Note PT-OP-A Visit Information Start: 10/09/18 11:23 Freq: Status: Active Protocol: Document 11/05/18 09:51 LRN (Rec: 11/05/18 11:02 LRN [id number]) Out-Patient Physical Therapy Visit Information Visit Information Visit Type Treatment Note Visit Start Time 09:51 Visit Stop Time 10:39 Total Visit Minutes 48 Visit Number 4 Number of ADJUNCT HISTORY INSTRUCTOR Visits 0 Evaluation Information Evaluation Date 10/09/18 Precautions Precautions Hx of , adenoidectomy , tubal ligation, D&C. PT-OP-B Current Condition Start: 10/09/18 11:23 Freq: Status: Active Protocol: Document 10/09/18 11:24 LRN (Rec: 10/09/18 11:36 LRN [id number]) Current Condition History of Current Condition Onset Date 1 yr ago. Current Complaints Urgency to urinate sometimes. History of Current Condition With Oxybutynin now able to sleep through the night. History of 2 children. C- section first and episiotomy with 2nd. Tubal ligation - early 's. D & C. Prior Treatments and Tests Pelvic ultrasound for cyst on ovaries (found to be negative( . Developmental History Developmental History Long history of UTI for 15 yrs , and was taken off medications 4-5 yrs ago, then starting to have urgency and was put on Oxybutynin 1 yr ago for the urge. She has felt like she had a UTI, but tests were negative (was feeling urgency and burning with urination). Last summer was getting up 5-6 times/night. Treatment Goals Patient/Caregiver Goals Pt goal with therapy is to decrease number of times urinating during the day. 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 Current Functional Impairments (Reported) Functional Limitations- Other Limited in activities outside the home due to frequency of urination. Personal Factors Other Personal Factors That May Effect History of tubal ligation, D&C Therapy/Recovery , Anxiety controlled with medication Medication: Oxybutynin chloride PT-OP-C Subjective Start: 10/09/18 11:23 Freq: Status: Active Protocol: Document 11/05/18 09:51 LRN (Rec: 11/05/18 11:02 LRN [id number]) OP-PT Subjective Patient Comments Patient Comments Long void times include dribbling. Pt states her constipation is less with an increase in fluid intake. PT-OP-H Neuro Start: 10/09/18 11:23 Freq: Status: Active Protocol: Document 10/09/18 11:24 LRN (Rec: 10/09/18 16:24 LRN [id number]) Sensation Evaluation Comments Summary Comments Not formally assessed. Pt noted not feeling hardened stool in perineum. PT-OP-I Pelvic Floor Start: 10/09/18 11:23 Freq: Status: Active Protocol: Document 11/05/18 09:51 LRN (Rec: 11/05/18 11:02 LRN [id number]) Pelvic Floor Assessment SEMG (uV) Baseline 3.2 Quick Contraction 3.7 10 Second Contraction 3.0 Recruitment Pattern Poor/Slow Relaxation Fair Holding Poor/Slow Stability of Hold Poor/Slow PT-OP-J Posture/Palpation/Skin Start: 10/09/18 11:23 Freq: Status: Active Protocol: Document 10/09/18 11:24 LRN (Rec: 10/09/18 17:03 LRN [id number]) Posture Evaluation Comments Posture Comments Standing: Pt demonstrates moderate forward head posturing, increased lordosis, elevated R shoulder and scapula, C-curve of the spine with the apex on the right, level pelvis. PT-OP-K Range of Motion Start: 10/09/18 11:23 Freq: Status: Active Protocol: Document 10/09/18 11:24 LRN (Rec: 10/09/18 17:03 LRN [id number]) Hip Goniometric Range of Motion Hip Right Passive Testing Position Supine Flexion w/Knee Flexed 90 Extension 5 Abduction 30 Internal Rotation 30 External Rotation 60 Left Passive Testing Position Supine Flexion w/Knee Flexed 90 Extension 3 Abduction 22 Internal Rotation 45 External Rotation 55 PT-OP-M Strength Start: 10/09/18 11:23 Freq: Status: Active Protocol: Document 10/09/18 11:24 LRN (Rec: 10/09/18 17:03 LRN [id number]) Trunk Strength Trunk Manual Muscle Testing Testing Position Supine Flexion 4 Good Rotation Left 4 Good Rotation Right 3 Fair Core Stabilization Pt unable to maintain core stability during MMT of LE's. Hip Strength Hip Manual Muscle Testing Right Flexion (L2) 4+ Good+ Extension (S1) 3 Fair Abduction 5 Normal Adduction 5 Normal External Rotation 5 Normal Internal Rotation 4+ Good+ Left Flexion (L2) 4 Good Extension (S1) 3 Fair Adduction 4+ Good+ External Rotation 4+ Good+ Internal Rotation 4+ Good+ PT-OP-Q Treatments Start: 10/09/18 11:23 Freq: Status: Active Protocol: Document 11/05/18 09:51 LRN (Rec: 11/05/18 11:02 LRN [id number]) Therapeutic Exercises Supine Exercises LE Roll in/outs Supine Exercise Name LE Roll in/outs Equipment Used Wedge Reps/Minutes 5' Deep Breathing Supine Exercise Name Deep Breathing with verbal and physical cuing Reps/Minutes 5' Comments Pt able to perform with physical cuing for short 3 inhale, 3-5 exhale Neuro Re-Education Treatment Other Activities EMG Biofeedback Details Resting, Quick Flicks, Long holds, PF awareness, Isolation of PF Reps/Duration 30' Comments On Wedge: 11/05/18: Quick Flicks Avg Work 3.7mV's, Avg Rest 3.2 mV's (10 reps). Long Holds Avg Work 2.9 mV's, Avg Rest 1.9 mV's. V & pt self physical Cuing used to help pt isolate PF from Abdominal. Hip AD's used due to positioning on wedge. breath holding minimal. No use of Gluteals noted. Self-Care/Home Management Treatment Education Patient Education Home Exercise Program Activities Self-Care/Home Management Activities Re-issued and reviewed HEP: LE roll in/outs with note for future Kegels. PT-OP-T Assessment and Plan Start: 10/09/18 11:23 Freq: Status: Active Protocol: Document 11/05/18 09:51 LRN (Rec: 11/05/18 11:02 LRN [id number]) Physical Therapy Assessment Goals Five Impairment Pt not able to perform deep breathing properly Short Term Goal (STG) Pt will be able to demonstrate proper deep breathing STG Duration 11/06/18 Four Impairment PF weakness of 0/5 Senior Living Goal (LTG) Pt will demonstrate a PF strength of at least 2/5 of the pelvic floor clock. LTG Duration 01/01/19 Three Impairment Symptoms of Urgency with urination due to weak sphincter muscles Short Term Goal (STG) Improve PF strength to 1/5. STG Duration 11/06/18 Senior Living Goal (LTG) Improve PF superficial strength in order to identify a need for urination without urgency. LTG Duration 12/04/18 Two Impairment Poor awareness of a proper PF contraction Short Term Goal (STG) Pt will be able to identify a proper PF contraction. STG Duration 11/06/18 One Impairment Lacks appropriate self care HEP Credit Control Manager Goal (LTG) Pt will be independent with a self care HEP. LTG Duration 01/01/19 Assessment Summary Assessment Pt bladder diary shows inproved voiding of almost every 2 hours during the day. Urge deference technique controls urge with minimal leakage. Pt voiding time very large due to post dribbling. Assessment of voiding times needs to be without post dribbling. Pt improved with deep breathing. Needs further training in immediate belly movement on deep breathing and for slowing breaths. Pt rest time with quick flicks has increased, therefore pt needs to make sure she achieves a relaxation phase. Physical Therapy Plan Frequency and Duration Frequency of Treatment 2x/Week Duration of Treatment 15 visits to date Plan of Care Start Date 10/09/18 Plan of Care End Date 01/01/19 Next Visit Focus/Plan Next Note Type Treatment Note Next Visit Plan Check new Bladder Diary week for voiding times without dribbling if pt is able to assess while family is in town . Proper deep breathing in secs and abdominal movement immediate with inhale. Assessment of sensation of the external perineum and check for abdominal soft tissue restrictions. Initiate PF training with EMG biofeedback neuro-reeducation of isolating PF contraction. Discuss bowel function and possible hindrance to bladder training. Check if pt is able to perform a PF contraction properly, and progress as appropriate with use of E-Stim for awareness if needed. Review shoulder injury as it relates to core strengthening.
--- NOTE | 2018-11-12 17:23 | PT.OTN ---
Current Diagnoses Muscle weakness (generalized) (11/12/18) Other symptoms and signs involving the musculoskeletal system (11/12/18) Frequency of micturition (11/12/18) Physical Therapy Treatment Note PT-OP-A Visit Information Start: 10/09/18 11:23 Freq: Status: Active Protocol: Document 11/12/18 13:36 LRN (Rec: 11/12/18 14:27 LRN [id number]) Out-Patient Physical Therapy Visit Information Visit Information Visit Type Treatment Note Visit Start Time 13:36 Visit Stop Time 14:26 Total Visit Minutes 50 Visit Number 5 Number of BAG SORTER Visits 0 Evaluation Information Evaluation Date 10/09/18 Precautions Precautions Hx of , adenoidectomy , tubal ligation, D&C. PT-OP-B Current Condition Start: 10/09/18 11:23 Freq: Status: Active Protocol: Document 10/09/18 11:24 LRN (Rec: 10/09/18 11:36 LRN [id number]) Current Condition History of Current Condition Onset Date 1 yr ago. Current Complaints Urgency to urinate sometimes. History of Current Condition With Oxybutynin now able to sleep through the night. History of 2 children. C- section first and episiotomy with 2nd. Tubal ligation - early 's. D & C. Prior Treatments and Tests Pelvic ultrasound for cyst on ovaries (found to be negative( . Developmental History Developmental History Long history of UTI for 15 yrs , and was taken off medications 4-5 yrs ago, then starting to have urgency and was put on Oxybutynin 1 yr ago for the urge. She has felt like she had a UTI, but tests were negative (was feeling urgency and burning with urination). Last summer was getting up 5-6 times/night. Treatment Goals Patient/Caregiver Goals Pt goal with therapy is to decrease number of times urinating during the day. 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 Current Functional Impairments (Reported) Functional Limitations- Other Limited in activities outside the home due to frequency of urination. Personal Factors Other Personal Factors That May Effect History of tubal ligation, D&C Therapy/Recovery , Anxiety controlled with medication Medication: Oxybutynin chloride PT-OP-C Subjective Start: 10/09/18 11:23 Freq: Status: Active Protocol: Document 11/12/18 13:36 LRN (Rec: 11/12/18 14:27 LRN [id number]) OP-PT Subjective Patient Comments Patient Comments States her bladder diary voiding times was without dribbling. Has been working on breathing and holding the TA. PT-OP-H Neuro Start: 10/09/18 11:23 Freq: Status: Active Protocol: Document 10/09/18 11:24 LRN (Rec: 10/09/18 16:24 LRN [id number]) Sensation Evaluation Comments Summary Comments Not formally assessed. Pt noted not feeling hardened stool in perineum. PT-OP-I Pelvic Floor Start: 10/09/18 11:23 Freq: Status: Active Protocol: Document 11/05/18 09:51 LRN (Rec: 11/05/18 11:02 LRN [id number]) Pelvic Floor Assessment SEMG (uV) Baseline 3.2 Quick Contraction 3.7 10 Second Contraction 3.0 Recruitment Pattern Poor/Slow Relaxation Fair Holding Poor/Slow Stability of Hold Poor/Slow PT-OP-J Posture/Palpation/Skin Start: 10/09/18 11:23 Freq: Status: Active Protocol: Document 10/09/18 11:24 LRN (Rec: 10/09/18 17:03 LRN [id number]) Posture Evaluation Comments Posture Comments Standing: Pt demonstrates moderate forward head posturing, increased lordosis, elevated R shoulder and scapula, C-curve of the spine with the apex on the right, level pelvis. PT-OP-K Range of Motion Start: 10/09/18 11:23 Freq: Status: Active Protocol: Document 10/09/18 11:24 LRN (Rec: 10/09/18 17:03 LRN [id number]) Hip Goniometric Range of Motion Hip Right Passive Testing Position Supine Flexion w/Knee Flexed 90 Extension 5 Abduction 30 Internal Rotation 30 External Rotation 60 Left Passive Testing Position Supine Flexion w/Knee Flexed 90 Extension 3 Abduction 22 Internal Rotation 45 External Rotation 55 PT-OP-M Strength Start: 10/09/18 11:23 Freq: Status: Active Protocol: Document 10/09/18 11:24 LRN (Rec: 10/09/18 17:03 LRN [id number]) Trunk Strength Trunk Manual Muscle Testing Testing Position Supine Flexion 4 Good Rotation Left 4 Good Rotation Right 3 Fair Core Stabilization Pt unable to maintain core stability during MMT of LE's. Hip Strength Hip Manual Muscle Testing Right Flexion (L2) 4+ Good+ Extension (S1) 3 Fair Abduction 5 Normal Adduction 5 Normal External Rotation 5 Normal Internal Rotation 4+ Good+ Left Flexion (L2) 4 Good Extension (S1) 3 Fair Adduction 4+ Good+ External Rotation 4+ Good+ Internal Rotation 4+ Good+ PT-OP-Q Treatments Start: 10/09/18 11:23 Freq: Status: Active Protocol: Document 11/12/18 13:36 LRN (Rec: 11/12/18 14:27 LRN [id number]) Therapeutic Exercises Supine Exercises Chest Breathing Supine Exercise Name Chest breathing with TA contraction Reps/Minutes 5' Manual Therapy Treatment Soft Tissue Mobilization PF Body Location 9-12 of PF clock and to the R of urethra Mobilization Type Sustained Pressure Trigger Point Release Intensity/Depth Superficial Body Position Hooklying Comments Good release of soft tissue tightness. Abdomen Body Location Abdomen, primarily left LQ. Mobilization Type Myofascial Release Intensity/Depth Superficial Body Position Supine Neuro Re-Education Treatment Other Activities PF contraction with manual stim Details Physical cuing of PF for tightening of 3-6 > 9-12 of PF Clock Reps/Duration 4' EMG Biofeedback Details 10:10 Reps/Duration 8' Comments 10 sec holds with 10 sec relaxation. PF contraction awareness training and exercise. Self-Care/Home Management Treatment Education Other Education Reviewed and discussed Bladder Diary. Discussed for pt to time her voiding instead of counting due to pt noting very long voiding times. PT-OP-T Assessment and Plan Start: 10/09/18 11:23 Freq: Status: Active Protocol: Document 11/12/18 13:36 LRN (Rec: 11/12/18 14:27 LRN [id number]) Physical Therapy Assessment Goals Five Impairment Pt not able to perform deep breathing properly Short Term Goal (STG) Pt will be able to demonstrate proper deep breathing STG Duration 11/06/18 Four Impairment PF weakness of 0/5 Fpc Goal (LTG) Pt will demonstrate a PF strength of at least 2/5 of the pelvic floor clock. LTG Duration 01/01/19 (11/12/18: Posterior PF strength is 2/5) Three Impairment Symptoms of Urgency with urination due to weak sphincter muscles Short Term Goal (STG) Improve PF strength to 1/5. STG Duration 11/06/18 Fpc Goal (LTG) Improve PF superficial strength in order to identify a need for urination without urgency. LTG Duration 12/04/18 Two Impairment Poor awareness of a proper PF contraction Short Term Goal (STG) Pt will be able to identify a proper PF contraction. STG Duration 11/06/18 (11/12/18: GOAL MET w/ use of E-Stim) One Impairment Lacks appropriate self care HEP Fpc Goal (LTG) Pt will be independent with a self care HEP. LTG Duration 01/01/19 Progress Towards Goals Progress Comments Goal 1: HEP has been initiated. Goal 2: 11/12/18: GOAL MET w/ use of E-stim for identifying proper PF contraction. Goal 3: 11/12/18: No sphincter muscle contraction palpable. Goal 4: 11/12/18: Posterior PF strength is 2/5 Goal 5: Pt improving in her Deep Breathing Assessment Summary Assessment Pt much improved in ability to maintain a TA contraction with breathing more through chest than abdomen. + response to trP release of PF and better positioning of urethra after STM. Pt has extremely long voiding times without dribbling (40-50 sec's ), but pt feels she has good urine stream flow. Further assessment of Bladder Diary needed to confirm if pt voiding times are truely 40-50 sec's. No notable sensation dysfunction of external perineum. Pt only mildly restricted with left lower quarter abdominal tightness. Pt appears to have a good awareness of PF contraction with use of E-Stim. She has very weak to no palpable sphincter contractions and is quite weak with endurance holding on the L side (12-6 of PF clock). She feels her constipation is less and not a big problem. This area may still need to be monitored. Pt may need PF stretching to improve urine flow and decrease voiding times. Physical Therapy Plan Frequency and Duration Frequency of Treatment 2x/Week Duration of Treatment 15 visits to date Plan of Care Start Date 10/09/18 Plan of Care End Date 01/01/19 Next Visit Focus/Plan Next Note Type Treatment Note Next Visit Plan Check new Bladder Diary week for voiding times without dribbling. Check for Proper deep breathing over 5-6 secs each inhale/exhale (Goal #5), and abdominal movement immediate with inhale. Cont PF training with EMG biofeedback neuro-reeducation of isolating PF contractions if needed. Monitor bowel function and possible hindrance to bladder training. Review shoulder injury as it relates to core strengthening . Discuss bladder retraining to extend void times if voiding times are more normal, otherwise wait on lengthening time between voids until PF is improved and voiding times are less.
--- NOTE | 2018-11-26 17:09 | PT.OTN ---
Current Diagnoses Muscle weakness (generalized) (11/26/18) Other symptoms and signs involving the musculoskeletal system (11/26/18) Frequency of micturition (11/26/18) Physical Therapy Treatment Note PT-OP-A Visit Information Start: 10/09/18 11:23 Freq: Status: Active Protocol: Document 11/26/18 11:22 LRN (Rec: 11/26/18 12:26 LRN [id number]) Out-Patient Physical Therapy Visit Information Visit Information Visit Type Treatment Note Visit Start Time 11:22 Visit Stop Time 12:10 Total Visit Minutes 48 Visit Number 6 Number of GAS ENGINE OPERATOR Visits 0 Evaluation Information Evaluation Date 10/09/18 Precautions Precautions Hx of , adenoidectomy , tubal ligation, D&C. PT-OP-B Current Condition Start: 10/09/18 11:23 Freq: Status: Active Protocol: Document 10/09/18 11:24 LRN (Rec: 10/09/18 11:36 LRN [id number]) Current Condition History of Current Condition Onset Date 1 yr ago. Current Complaints Urgency to urinate sometimes. History of Current Condition With Oxybutynin now able to sleep through the night. History of 2 children. C- section first and episiotomy with 2nd. Tubal ligation - early 's. D & C. Prior Treatments and Tests Pelvic ultrasound for cyst on ovaries (found to be negative( . Developmental History Developmental History Long history of UTI for 15 yrs , and was taken off medications 4-5 yrs ago, then starting to have urgency and was put on Oxybutynin 1 yr ago for the urge. She has felt like she had a UTI, but tests were negative (was feeling urgency and burning with urination). Last summer was getting up 5-6 times/night. Treatment Goals Patient/Caregiver Goals Pt goal with therapy is to decrease number of times urinating during the day. 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 Current Functional Impairments (Reported) Functional Limitations- Other Limited in activities outside the home due to frequency of urination. Personal Factors Other Personal Factors That May Effect History of tubal ligation, D&C Therapy/Recovery , Anxiety controlled with medication Medication: Oxybutynin chloride PT-OP-C Subjective Start: 10/09/18 11:23 Freq: Status: Active Protocol: Document 11/26/18 11:22 LRN (Rec: 11/26/18 12:26 LRN [id number]) OP-PT Subjective Patient Comments Patient Comments Have logs. Not going to the bathroom quite as often. PT-OP-H Neuro Start: 10/09/18 11:23 Freq: Status: Active Protocol: Document 10/09/18 11:24 LRN (Rec: 10/09/18 16:24 LRN [id number]) Sensation Evaluation Comments Summary Comments Not formally assessed. Pt noted not feeling hardened stool in perineum. PT-OP-I Pelvic Floor Start: 10/09/18 11:23 Freq: Status: Active Protocol: Document 11/05/18 09:51 LRN (Rec: 11/05/18 11:02 LRN [id number]) Pelvic Floor Assessment SEMG (uV) Baseline 3.2 Quick Contraction 3.7 10 Second Contraction 3.0 Recruitment Pattern Poor/Slow Relaxation Fair Holding Poor/Slow Stability of Hold Poor/Slow PT-OP-J Posture/Palpation/Skin Start: 10/09/18 11:23 Freq: Status: Active Protocol: Document 10/09/18 11:24 LRN (Rec: 10/09/18 17:03 LRN [id number]) Posture Evaluation Comments Posture Comments Standing: Pt demonstrates moderate forward head posturing, increased lordosis, elevated R shoulder and scapula, C-curve of the spine with the apex on the right, level pelvis. PT-OP-K Range of Motion Start: 10/09/18 11:23 Freq: Status: Active Protocol: Document 10/09/18 11:24 LRN (Rec: 10/09/18 17:03 LRN [id number]) Hip Goniometric Range of Motion Hip Right Passive Testing Position Supine Flexion w/Knee Flexed 90 Extension 5 Abduction 30 Internal Rotation 30 External Rotation 60 Left Passive Testing Position Supine Flexion w/Knee Flexed 90 Extension 3 Abduction 22 Internal Rotation 45 External Rotation 55 PT-OP-M Strength Start: 10/09/18 11:23 Freq: Status: Active Protocol: Document 10/09/18 11:24 LRN (Rec: 10/09/18 17:03 LRN [id number]) Trunk Strength Trunk Manual Muscle Testing Testing Position Supine Flexion 4 Good Rotation Left 4 Good Rotation Right 3 Fair Core Stabilization Pt unable to maintain core stability during MMT of LE's. Hip Strength Hip Manual Muscle Testing Right Flexion (L2) 4+ Good+ Extension (S1) 3 Fair Abduction 5 Normal Adduction 5 Normal External Rotation 5 Normal Internal Rotation 4+ Good+ Left Flexion (L2) 4 Good Extension (S1) 3 Fair Adduction 4+ Good+ External Rotation 4+ Good+ Internal Rotation 4+ Good+ PT-OP-Q Treatments Start: 10/09/18 11:23 Freq: Status: Active Protocol: Document 11/26/18 11:22 LRN (Rec: 11/26/18 12:26 LRN [id number]) Therapeutic Exercises Supine Exercises Deep Breathing Supine Exercise Name Deep Breathing with verbal and physical cuing Reps/Minutes 5' Comments Inhale good, exhale too quick Neuro Re-Education Treatment Other Activities EMG Biofeedback Details Long Holds 5, 10 sec with deep breathing Reps/Duration 25' Comments Pt working on holding 50% effort with deep breathing to prevent holding of breath. Counted breathing cycle for pt to slow breathing. Used 5 sec, 10 sec, & audie screen for visual feedback. Self-Care/Home Management Treatment Education Other Education Reviewed bladder diary and educated pt in areas to change (coffee, water intake) and discussed bladder retraining, with start in afternoon after effects of coffee has decreased. Pt to start delaying 2-10' after 1st urge. PT-OP-T Assessment and Plan Start: 10/09/18 11:23 Freq: Status: Active Protocol: Document 11/26/18 11:22 LRN (Rec: 11/26/18 12:26 LRN [id number]) Physical Therapy Assessment Goals Five Impairment Pt not able to perform deep breathing properly Short Term Goal (STG) Pt will be able to demonstrate proper deep breathing STG Duration 11/06/18c (11/26/18: Goal met) Four Impairment PF weakness of 0/5 Train Operations Manager Goal (LTG) Pt will demonstrate a PF strength of at least 2/5 of the pelvic floor clock. LTG Duration 01/01/19 (11/12/18: Posterior PF strength is 2/5) Three Impairment Symptoms of Urgency with urination due to weak sphincter muscles Short Term Goal (STG) Improve PF strength to 1/5. STG Duration 11/06/18 Shelter Goal (LTG) Improve PF superficial strength in order to identify a need for urination without urgency. LTG Duration 12/04/18 Two Impairment Poor awareness of a proper PF contraction Short Term Goal (STG) Pt will be able to identify a proper PF contraction. STG Duration 11/06/18 (11/12/18: GOAL MET w/ use of E-Stim) One Impairment Lacks appropriate self care HEP Shelter Goal (LTG) Pt will be independent with a self care HEP. LTG Duration 01/01/19 Progress Towards Goals Progress Comments Goal 1: Progressing. Goal 2: GOAL MET. Goal 3: STG: Goal not met LTG: Goal not met Goal 4: Improving. 11/12/18: Posterior PF strength is 2/5 Goal 5: GOAL MET. Assessment Summary Assessment Per voiding log, pt voiding times remain very long indicating restriction in flow . Also, pt voiding is every hour in the morning after coffee drinking and ~every 2 hours in the afternoon. Pt appears to have a good understanding of how to retrain the bladder after education in bladder rehab. She will try retraining in the afternoon because she prefers to continue drinking coffee in the morning; therefore she is expected to urinate every hour after coffee consumption. Pt preferred EMG neuro-aashish screen of 5 sec holds and audie . Pt demonstrates good abdominal excursion with deep breaths but tends to breath too quickly. Physical Therapy Plan Frequency and Duration Frequency of Treatment 2x/Week Duration of Treatment 15 visits to date Plan of Care Start Date 10/09/18 Plan of Care End Date 01/01/19 Next Visit Focus/Plan Next Note Type Treatment Note Next Visit Plan Discuss possibility of restricted urinary flow and options of care, and goal for decreased voiding time vs time between voids, as PF strengthens. Check for Proper deep breathing over 5-6 secs each inhale/exhale (Goal #5), and abdominal movement immediate with inhale. Cont PF training with EMG biofeedback neuro-reeducation of isolating PF contractions if needed. Monitor bowel function and possible hindrance to bladder training. Review shoulder injury as it relates to core strengthening .
--- NOTE | 2018-12-24 15:37 | PT.OTN ---
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 PT-OP-B Current Condition Start: 10/09/18 11:23 Freq: Status: Active Protocol: Document 10/09/18 11:24 LRN (Rec: 10/09/18 11:36 LRN [id number]) Current Condition History of Current Condition Onset Date 1 yr ago. Current Complaints Urgency to urinate sometimes. History of Current Condition With Oxybutynin now able to sleep through the night. History of 2 children. C- section first and episiotomy with 2nd. Tubal ligation - early s. D & C. Prior Treatments and Tests Pelvic ultrasound for cyst on ovaries (found to be negative( . Developmental History Developmental History Long history of UTI for 15 yrs , and was taken off medications 4-5 yrs ago, then starting to have urgency and was put on Oxybutynin 1 yr ago for the urge. She has felt like she had a UTI, but tests were negative (was feeling urgency and burning with urination). Last summer was getting up 5-6 times/night. Treatment Goals Patient/Caregiver Goals Pt goal with therapy is to decrease number of times urinating during the day. 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 Current Functional Impairments (Reported) Functional Limitations- Other Limited in activities outside the home due to frequency of urination. Personal Factors Other Personal Factors That May Effect History of tubal ligation, D&C Therapy/Recovery , Anxiety controlled with medication Medication: Oxybutynin chloride PT-OP-C Subjective Start: 10/09/18 11:23 Freq: Status: Active Protocol: Document 12/24/18 11:23 LRN (Rec: 12/24/18 12:17 LRN [id number]) OP-PT Subjective Patient Comments Patient Comments Blew out the R knee 3 weeks ago [place] camp was able to go 3 hrs without urinating some of the time. Doing ex's daily . At night urinate 1-2x/night Improvement in able to sleep better. Has cut down on caffeinated coffee. Drinking lots of water. PT-OP-H Neuro Start: 10/09/18 11:23 Freq: Status: Active Protocol: Document 10/09/18 11:24 LRN (Rec: 10/09/18 16:24 LRN [id number]) Sensation Evaluation Comments Summary Comments Not formally assessed. Pt noted not feeling hardened stool in perineum. PT-OP-I Pelvic Floor Start: 10/09/18 11:23 Freq: Status: Active Protocol: Document 12/24/18 11:23 LRN (Rec: 12/24/18 12:17 LRN [id number]) Pelvic Floor Assessment Prolapse Cystocele Grade 1 Perineal Descent Resting Absent Bearing Present SEMG (uV) Baseline 2.5 Quick Contraction 8.5 10 Second Contraction 6.1 Recruitment Pattern Poor/Slow Relaxation Fair Holding Poor/Slow Stability of Hold Poor/Slow Contraction Ability Manual Muscle Testing Left 2 Manual Muscle Testing Right 2 Manual Muscle Testing Anterior 0 Manual Muscle Testing Posterior 3 Muscle Endurance (Seconds) 2 Comments Pelvic Floor Comments Pt bulges out instead of pulling in when performing a PF contraction. Pt was tested in supine with legs up on bolster, towel roll holding electrode in place. Pt was able to perform an isolated PF contraction. Rest Tone: Quick Flicks: 5.9 uV's Long holds: 4.5 uV's Pt did not assist with gluteal and hip AD muscles. PT-OP-J Posture/Palpation/Skin Start: 10/09/18 11:23 Freq: Status: Active Protocol: Document 10/09/18 11:24 LRN (Rec: 10/09/18 17:03 LRN [id number]) Posture Evaluation Comments Posture Comments Standing: Pt demonstrates moderate forward head posturing, increased lordosis, elevated R shoulder and scapula, C-curve of the spine with the apex on the right, level pelvis. PT-OP-K Range of Motion Start: 10/09/18 11:23 Freq: Status: Active Protocol: Document 10/09/18 11:24 LRN (Rec: 10/09/18 17:03 LRN [id number]) Hip Goniometric Range of Motion Hip Right Passive Testing Position Supine Flexion w/Knee Flexed 90 Extension 5 Abduction 30 Internal Rotation 30 External Rotation 60 Left Passive Testing Position Supine Flexion w/Knee Flexed 90 Extension 3 Abduction 22 Internal Rotation 45 External Rotation 55 PT-OP-M Strength Start: 10/09/18 11:23 Freq: Status: Active Protocol: Document 10/09/18 11:24 LRN (Rec: 10/09/18 17:03 LRN [id number]) Trunk Strength Trunk Manual Muscle Testing Testing Position Supine Flexion 4 Good Rotation Left 4 Good Rotation Right 3 Fair Core Stabilization Pt unable to maintain core stability during MMT of LE's. Hip Strength Hip Manual Muscle Testing Right Flexion (L2) 4+ Good+ Extension (S1) 3 Fair Abduction 5 Normal Adduction 5 Normal External Rotation 5 Normal Internal Rotation 4+ Good+ Left Flexion (L2) 4 Good Extension (S1) 3 Fair Adduction 4+ Good+ External Rotation 4+ Good+ Internal Rotation 4+ Good+ PT-OP-Q Treatments Start: 10/09/18 11:23 Freq: Status: Active Protocol: Document 12/24/18 11:23 LRN (Rec: 12/24/18 15:12 LRN [id number]) Therapeutic Exercises Supine Exercises Isolated PF >< Supine Exercise Name Isolated PF >< Reps/Minutes 5' Deep Breathing Supine Exercise Name Deep Breathing with verbal and physical cuing Reps/Minutes 5' Comments Inhale good, exhale too quick Neuro Re-Education Treatment Other Activities PF contraction with manual stim Details Physical cuing of PF contraction Reps/Duration 15' Comments Fist on perineum with pt pulling away from fist during PF contraction EMG Biofeedback Details Long Holds 5, 10 sec with deep breathing Reps/Duration 15' Self-Care/Home Management Treatment Education Patient Education Home Exercise Program Activities Self-Care/Home Management Activities I/S pt to focus on relaxation of PF after contraction & lifting perineum away from object placed against perineum . Pt to continue Deep breathing practice. PT-OP-T Assessment and Plan Start: 10/09/18 11:23 Freq: Status: Active Protocol: Document 12/24/18 11:23 LRN (Rec: 12/24/18 12:17 LRN [id number]) Physical Therapy Assessment Goals Five Impairment Pt not able to perform deep breathing properly Short Term Goal (STG) Pt will be able to demonstrate proper deep breathing STG Duration 11/06/18c (11/26/18: Goal met, but deep breathing is not automatic) Four Impairment PF weakness of 0/5 Prison Goal (LTG) Pt will demonstrate a PF strength of at least 2/5 of the pelvic floor clock. LTG Duration 01/01/19 (11/12/18: PF strength is 3/5, but with very poor coordination) Three Impairment Symptoms of Urgency with urination due to weak sphincter muscles Short Term Goal (STG) Improve PF strength to 1/5. STG Duration 11/06/18 Prison Goal (LTG) Improve PF superficial strength in order to identify a need for urination without urgency. LTG Duration 12/04/18 (12/24/18 GOAL MET) Two Impairment Poor awareness of a proper PF contraction Short Term Goal (STG) Pt will be able to identify a proper PF contraction. STG Duration 11/06/18 (11/12/18: GOAL MET w/ use of E-Stim and physical/ verbal cuing) One Impairment Lacks appropriate self care HEP Prison Goal (LTG) Pt will be independent with a self care HEP. LTG Duration 01/01/19 (12/24/18: Progressing) Assessment Summary Assessment Pt attends to therapy with new referral for a Meniscus tear. She has improved in PF strength per EMG assessment and per her subjective report, her voiding schedule is normal every 2-3 hours and 1- 2x @ night with restriction in caffeine intake and increased water consumption. Pt demonstrates improved abdominal excursion with deep breaths and may need more time to gain greater control of her breathing to become automatic. The pt performs a Kegel incorrectly with bulging out of perineum vs pulling in . She appeared able to identify a proper Kegel by end of treatment but needed much physical and verbal cuing. She is uncoordinated with a Kegel contraction. 1-2 more visits for training on performing a proper Kegel and learning relaxation techniques during resting phase. We will postpone her R knee rehab once her insurance approval is obtained and she is discharged from PT for her pelvic floor. Physical Therapy Plan Frequency and Duration Frequency of Treatment 2x/Week Duration of Treatment 15 visits to date Plan of Care Start Date 10/09/18 Plan of Care End Date 01/01/19 Next Visit Focus/Plan Next Note Type Treatment Note Next Visit Plan DC PT for PF in 1-2 more visits (new POC by 01/01/19), then start her R medial knee therapy. Once pt has completed her rehabilitation; then she might return for further PF PT if needed. Discuss deep breathing over 5- 6 secs each inhale/exhale ( Goal #5). Cont PF training with physical cuing and EMG stim. Biofeedback neuro- reeducation for relaxation between contractions. Monitor bowel function and possible hindrance to bladder training. Review shoulder injury as it relates to core strengthening .
--- NOTE | 2019-01-03 12:59 | PT.OTN ---
Current Diagnoses Muscle weakness (generalized) (01/03/19) Other symptoms and signs involving the musculoskeletal system (01/03/19) Frequency of micturition (01/03/19) Physical Therapy Treatment Note PT-OP-A Visit Information Start: 10/09/18 11:23 Freq: Status: Active Protocol: Document 01/03/19 11:26 LRN (Rec: 01/03/19 11:27 LRN [id number]) Out-Patient Physical Therapy Visit Information Visit Information Visit Type Progress Note Visit Start Time 11:26 Visit Stop Time 12:11 Total Visit Minutes 45 Visit Number 8 Number of TREE TRIMMER Visits 0 Evaluation Information Evaluation Date 10/09/18 Precautions Precautions Hx of , adenoidectomy , tubal ligation, D&C. PT-OP-B Current Condition Start: 10/09/18 11:23 Freq: Status: Active Protocol: Document 10/09/18 11:24 LRN (Rec: 10/09/18 11:36 LRN [id number]) Current Condition History of Current Condition Onset Date 1 yr ago. Current Complaints Urgency to urinate sometimes. History of Current Condition With Oxybutynin now able to sleep through the night. History of 2 children. C- section first and episiotomy with 2nd. Tubal ligation - early 's. D & C. Prior Treatments and Tests Pelvic ultrasound for cyst on ovaries (found to be negative( . Developmental History Developmental History Long history of UTI for 15 yrs , and was taken off medications 4-5 yrs ago, then starting to have urgency and was put on Oxybutynin 1 yr ago for the urge. She has felt like she had a UTI, but tests were negative (was feeling urgency and burning with urination). Last summer was getting up 5-6 times/night. Treatment Goals Patient/Caregiver Goals Pt goal with therapy is to decrease number of times urinating during the day. 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 Current Functional Impairments (Reported) Functional Limitations- Other Limited in activities outside the home due to frequency of urination. Personal Factors Other Personal Factors That May Effect History of tubal ligation, D&C Therapy/Recovery , Anxiety controlled with medication Medication: Oxybutynin chloride PT-OP-C Subjective Start: 10/09/18 11:23 Freq: Status: Active Protocol: Document 01/03/19 11:26 LRN (Rec: 01/03/19 12:25 LRN [id number]) OP-PT Subjective Patient Comments Patient Comments States her mother was admitted to ER today and she is stressed. Her knee cont's to hurt. She is sleeping throught the night without urinating and is voiding every 2-3 hours. Drinking one cup of coffee a day and has increased water drinking. PT-OP-H Neuro Start: 10/09/18 11:23 Freq: Status: Active Protocol: Document 10/09/18 11:24 LRN (Rec: 10/09/18 16:24 LRN [id number]) Sensation Evaluation Comments Summary Comments Not formally assessed. Pt noted not feeling hardened stool in perineum. PT-OP-I Pelvic Floor Start: 10/09/18 11:23 Freq: Status: Active Protocol: Document 01/03/19 11:26 LRN (Rec: 01/03/19 12:25 LRN [id number]) Pelvic Floor Assessment Perineal Descent Bearing Present SEMG (uV) Baseline 2.5 Quick Contraction 8.5 10 Second Contraction 6.1 Recruitment Pattern Fair Relaxation Fair Holding Poor/Slow Stability of Hold Poor/Slow Contraction Ability Manual Muscle Testing Left 2 Manual Muscle Testing Right 2 Manual Muscle Testing Anterior 0 Manual Muscle Testing Posterior 3 Muscle Endurance (Seconds) 2 Comments Pelvic Floor Comments Resting tone started @ 4.1 but reduced to 2.5 after Deep Breathing. With PF contraction the pt initially bulged out with perineum, but was able to pull up @ max 75% effort. Pt in supine with legs on bolster. PT-OP-J Posture/Palpation/Skin Start: 10/09/18 11:23 Freq: Status: Active Protocol: Document 10/09/18 11:24 LRN (Rec: 10/09/18 17:03 LRN [id number]) Posture Evaluation Comments Posture Comments Standing: Pt demonstrates moderate forward head posturing, increased lordosis, elevated R shoulder and scapula, C-curve of the spine with the apex on the right, level pelvis. PT-OP-K Range of Motion Start: 10/09/18 11:23 Freq: Status: Active Protocol: Document 10/09/18 11:24 LRN (Rec: 10/09/18 17:03 LRN [id number]) Hip Goniometric Range of Motion Hip Right Passive Testing Position Supine Flexion w/Knee Flexed 90 Extension 5 Abduction 30 Internal Rotation 30 External Rotation 60 Left Passive Testing Position Supine Flexion w/Knee Flexed 90 Extension 3 Abduction 22 Internal Rotation 45 External Rotation 55 PT-OP-M Strength Start: 10/09/18 11:23 Freq: Status: Active Protocol: Document 10/09/18 11:24 LRN (Rec: 10/09/18 17:03 LRN [id number]) Trunk Strength Trunk Manual Muscle Testing Testing Position Supine Flexion 4 Good Rotation Left 4 Good Rotation Right 3 Fair Core Stabilization Pt unable to maintain core stability during MMT of LE's. Hip Strength Hip Manual Muscle Testing Right Flexion (L2) 4+ Good+ Extension (S1) 3 Fair Abduction 5 Normal Adduction 5 Normal External Rotation 5 Normal Internal Rotation 4+ Good+ Left Flexion (L2) 4 Good Extension (S1) 3 Fair Adduction 4+ Good+ External Rotation 4+ Good+ Internal Rotation 4+ Good+ PT-OP-Q Treatments Start: 10/09/18 11:23 Freq: Status: Active Protocol: Document 01/03/19 11:26 LRN (Rec: 01/03/19 12:25 LRN [id number]) Therapeutic Exercises Supine Exercises Deep Breathing Supine Exercise Name Deep Breathing with verbal and physical cuing Reps/Minutes 5' Comments Inhale 3 sec > 5 sec, exhale is good Neuro Re-Education Treatment Other Activities PF contraction with manual stim Details Physical cuing of PF contraction Reps/Duration 20' Comments Fist on perineum with pt pulling away from fist during PF contraction EMG Biofeedback Details Relaxation of resting tone, and contraction of PF w/o bulging. Reps/Duration 15' PT-OP-T Assessment and Plan Start: 10/09/18 11:23 Freq: Status: Active Protocol: Document 01/03/19 11:26 LRN (Rec: 01/03/19 12:25 LRN [id number]) Physical Therapy Assessment Rehab Potential Rehabilitation Potential Good Evaluation Complexity Number of Personal Factors/Comorbidities 1-2 Number of Body Systems Impaired 3 Clinical Presentation at Evaluation Stable Impairments Impairments Posture,ROM,Sensation,Strength Other Concerns Barriers to Rehabilitation Chronicity of condition Poor PF awareness Goals Five Impairment Pt not able to perform deep breathing properly Short Term Goal (STG) Pt will be able to demonstrate proper deep breathing STG Duration 11/06/18c (11/26/18: Goal met, but deep breathing is shallow) Four Impairment PF weakness of 0/5 Custodial Goal (LTG) Pt will demonstrate a PF strength of at least 2/5 of the pelvic floor clock. LTG Duration 01/01/19 (11/12/18: PF strength is 3/5, but with very poor coordination) Three Impairment Symptoms of Urgency with urination due to weak sphincter muscles Short Term Goal (STG) Improve PF strength to 1/5. STG Duration 11/06/18 Medicine Tech Goal (LTG) Improve PF superficial strength in order to identify a need for urination without urgency. LTG Duration 12/04/18 (12/24/18 GOAL MET) Two Impairment Poor awareness of a proper PF contraction Short Term Goal (STG) Pt will be able to identify a proper PF contraction. STG Duration 11/06/18 (11/12/18: GOAL MET w/ use of E-Stim and physical/ verbal cuing) One Impairment Lacks appropriate self care HEP Custodial Goal (LTG) Pt will be independent with a self care HEP. LTG Duration 01/01/19 (12/24/18: Progressing) Progress Towards Goals Progress Comments Goal 1: Progressing. Goal 2: GOAL MET. Goal 3: STG: Goal not met LTG: Goal not met Goal 4: Improving. 11/12/18: Posterior PF strength is 2/5 Goal 5: GOAL MET. Assessment Summary Assessment Decr in resting tone after deep breathing. Improved deep breathing, but needs to slow breath, exhale time is good. Less training was needed to get pt to contract PF without pushing out on perineum. Further training needed, possibly 2 more visits. Pt to work on this at home. Physical Therapy Plan Frequency and Duration Frequency of Treatment 2x/Week Duration of Treatment 15 visits to date Plan of Care Start Date 10/09/18 Plan of Care End Date 01/01/19 Next Visit Focus/Plan Next Note Type Treatment Note Next Visit Plan DC PT for PF probably in 1-2 more visits or when pt is able to perform a proper PF contraction, then start her R medial knee therapy per Poppy Sahu, PAC. Once pt has completed her R knee rehabilitation; then she might return for further PF PT if needed. Work towards deep breathing over 5-6 secs each inhale/exhale (Goal #5). Cont PF training with physical cuing and EMG stim. Biofeedback neuro-reeducation for relaxation between contractions. Monitor bowel function and possible hindrance to bladder training.
--- NOTE | 2019-01-03 14:07 | PT.OTN ---
Current Diagnoses Muscle weakness (generalized) (01/03/19) Other symptoms and signs involving the musculoskeletal system (01/03/19) Frequency of micturition (01/03/19) Physical Therapy Treatment Note PT-OP-A Visit Information Start: 10/09/18 11:23 Freq: Status: Active Protocol: Document 01/03/19 11:26 LRN (Rec: 01/03/19 11:27 LRN [id number]) Out-Patient Physical Therapy Visit Information Visit Information Visit Type Progress Note Visit Start Time 11:26 Visit Stop Time 12:11 Total Visit Minutes 45 Visit Number 8 Number of EMERGENCY ROOM REGISTERED NURSE Visits 0 Evaluation Information Evaluation Date 10/09/18 Precautions Precautions Hx of , adenoidectomy , tubal ligation, D&C. PT-OP-B Current Condition Start: 10/09/18 11:23 Freq: Status: Active Protocol: Document 10/09/18 11:24 LRN (Rec: 10/09/18 11:36 LRN [id number]) Current Condition History of Current Condition Onset Date 1 yr ago. Current Complaints Urgency to urinate sometimes. History of Current Condition With Oxybutynin now able to sleep through the night. History of 2 children. C- section first and episiotomy with 2nd. Tubal ligation - early 's. D & C. Prior Treatments and Tests Pelvic ultrasound for cyst on ovaries (found to be negative( . Developmental History Developmental History Long history of UTI for 15 yrs , and was taken off medications 4-5 yrs ago, then starting to have urgency and was put on Oxybutynin 1 yr ago for the urge. She has felt like she had a UTI, but tests were negative (was feeling urgency and burning with urination). Last summer was getting up 5-6 times/night. Treatment Goals Patient/Caregiver Goals Pt goal with therapy is to decrease number of times urinating during the day. 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 Current Functional Impairments (Reported) Functional Limitations- Other Limited in activities outside the home due to frequency of urination. Personal Factors Other Personal Factors That May Effect History of tubal ligation, D&C Therapy/Recovery , Anxiety controlled with medication Medication: Oxybutynin chloride PT-OP-C Subjective Start: 10/09/18 11:23 Freq: Status: Active Protocol: Document 01/03/19 11:26 LRN (Rec: 01/03/19 12:25 LRN [id number]) OP-PT Subjective Patient Comments Patient Comments States her mother was admitted to ER today and she is stressed. Her knee cont's to hurt. She is sleeping throught the night without urinating and is voiding every 2-3 hours. Drinking one cup of coffee a day and has increased water drinking. PT-OP-H Neuro Start: 10/09/18 11:23 Freq: Status: Active Protocol: Document 10/09/18 11:24 LRN (Rec: 10/09/18 16:24 LRN [id number]) Sensation Evaluation Comments Summary Comments Not formally assessed. Pt noted not feeling hardened stool in perineum. PT-OP-I Pelvic Floor Start: 10/09/18 11:23 Freq: Status: Active Protocol: Document 01/03/19 11:26 LRN (Rec: 01/03/19 12:25 LRN [id number]) Pelvic Floor Assessment Perineal Descent Bearing Present SEMG (uV) Baseline 2.5 Quick Contraction 8.5 10 Second Contraction 6.1 Recruitment Pattern Fair Relaxation Fair Holding Poor/Slow Stability of Hold Poor/Slow Contraction Ability Manual Muscle Testing Left 2 Manual Muscle Testing Right 2 Manual Muscle Testing Anterior 0 Manual Muscle Testing Posterior 3 Muscle Endurance (Seconds) 2 Comments Pelvic Floor Comments Resting tone started @ 4.1 but reduced to 2.5 after Deep Breathing. With PF contraction the pt initially bulged out with perineum, but was able to pull up @ max 75% effort. Pt in supine with legs on bolster. PT-OP-J Posture/Palpation/Skin Start: 10/09/18 11:23 Freq: Status: Active Protocol: Document 10/09/18 11:24 LRN (Rec: 10/09/18 17:03 LRN [id number]) Posture Evaluation Comments Posture Comments Standing: Pt demonstrates moderate forward head posturing, increased lordosis, elevated R shoulder and scapula, C-curve of the spine with the apex on the right, level pelvis. PT-OP-K Range of Motion Start: 10/09/18 11:23 Freq: Status: Active Protocol: Document 10/09/18 11:24 LRN (Rec: 10/09/18 17:03 LRN [id number]) Hip Goniometric Range of Motion Hip Right Passive Testing Position Supine Flexion w/Knee Flexed 90 Extension 5 Abduction 30 Internal Rotation 30 External Rotation 60 Left Passive Testing Position Supine Flexion w/Knee Flexed 90 Extension 3 Abduction 22 Internal Rotation 45 External Rotation 55 PT-OP-M Strength Start: 10/09/18 11:23 Freq: Status: Active Protocol: Document 10/09/18 11:24 LRN (Rec: 10/09/18 17:03 LRN [id number]) Trunk Strength Trunk Manual Muscle Testing Testing Position Supine Flexion 4 Good Rotation Left 4 Good Rotation Right 3 Fair Core Stabilization Pt unable to maintain core stability during MMT of LE's. Hip Strength Hip Manual Muscle Testing Right Flexion (L2) 4+ Good+ Extension (S1) 3 Fair Abduction 5 Normal Adduction 5 Normal External Rotation 5 Normal Internal Rotation 4+ Good+ Left Flexion (L2) 4 Good Extension (S1) 3 Fair Adduction 4+ Good+ External Rotation 4+ Good+ Internal Rotation 4+ Good+ PT-OP-Q Treatments Start: 10/09/18 11:23 Freq: Status: Active Protocol: Document 01/03/19 11:26 LRN (Rec: 01/03/19 12:25 LRN [id number]) Therapeutic Exercises Supine Exercises Deep Breathing Supine Exercise Name Deep Breathing with verbal and physical cuing Reps/Minutes 5' Comments Inhale 3 sec > 5 sec, exhale is good Neuro Re-Education Treatment Other Activities PF contraction with manual stim Details Physical cuing of PF contraction Reps/Duration 20' Comments Fist on perineum with pt pulling away from fist during PF contraction EMG Biofeedback Details Relaxation of resting tone, and contraction of PF w/o bulging. Reps/Duration 15' PT-OP-T Assessment and Plan Start: 10/09/18 11:23 Freq: Status: Active Protocol: Document 01/03/19 11:26 LRN (Rec: 01/03/19 12:25 LRN [id number]) Physical Therapy Assessment Rehab Potential Rehabilitation Potential Good Evaluation Complexity Number of Personal Factors/Comorbidities 1-2 Number of Body Systems Impaired 3 Clinical Presentation at Evaluation Stable Impairments Impairments Posture,ROM,Sensation,Strength Other Concerns Barriers to Rehabilitation Chronicity of condition Poor PF awareness Goals Five Impairment Pt not able to perform deep breathing properly Short Term Goal (STG) Pt will be able to demonstrate proper deep breathing STG Duration 01/31/19 (11/26/18: Goal met, but inhalation is only a 3 sec breath) Four Impairment PF weakness of 0/5 Jewelry Bearing Maker Goal (LTG) Pt will demonstrate a PF strength of at least 2/5 of the pelvic floor clock. LTG Duration 01/31/19 (11/12/18: PF strength is 3/5 except anterior PF strength is 0/5) Three Impairment Symptoms of Urgency with urination due to weak sphincter muscles Short Term Goal (STG) Improve PF strength to 1/5. STG Duration 11/06/18 Jewelry Bearing Maker Goal (LTG) Improve PF superficial strength in order to identify a need for urination without urgency. LTG Duration 12/04/18 (12/24/18 GOAL MET) Two Impairment Poor awareness of a proper PF contraction Short Term Goal (STG) Pt will be able to identify a proper PF contraction. STG Duration 11/06/18 (11/12/18: GOAL MET, but pt is not able to perform correctly) Fdc Goal (LTG) Pt will be able to perform a pulling up PF contraction and will be able to minimize bulging out with a PF contraction. LTG Duration 01/31/19 One Impairment Lacks appropriate self care HEP Fdc Goal (LTG) Pt will be independent with a self care HEP. LTG Duration 01/31/19 (12/24/18: Progressing) Progress Towards Goals Progress Comments Goal 1: Progressing. Goal 2: GOAL MET. Goal 3: STG: Goal not met LTG: Goal not met Goal 4: Improving. 11/12/18: Posterior PF strength is 2/5 Goal 5: GOAL MET. Assessment Summary Assessment The pt has done very well with therapy. She has increased her PF strength fo contractions but her primary problem at this time is coordination of her contractions. When kezia she bears down vs pulling up and in. Further training is needed in this area and for improved deep breathing to slow breaths. She demonstrates a decrease in resting tone to a more normal level after deep breathing. She is able to achieve a more coordinated PF contraction with less training time each visit, but would benefit from further skilled physical therapy training to get the pt to contract PF without pushing out the perineum. Further training is needed, possibly 2 more visits. Pt to work on this at home with help of spouse for manual feedback. After the pt meets her current goal she will be assessed for knee injury and will continue with therapy for R medial knee rehabilitation. Physical Therapy Plan Frequency and Duration Frequency of Treatment 2x/Week Duration of Treatment 15 visits to date Plan of Care Start Date 10/09/18 Plan of Care End Date 01/31/19 Therapeutic Interventions Therapeutic Interventions Home Exercise Program,Manual Therapy,Neuromuscular Re- education,Patient/Caregiver Education,Self-Care/Home Management,Soft Tissue Mobilization,Therapeutic Exercises Next Visit Focus/Plan Next Note Type Treatment Note Next Visit Plan DC PT for PF probably in 1-2 more visits or when pt is able to perform a proper PF contraction, then start her R medial knee therapy per Poppy Sahu, PAC. Once pt has completed her R knee rehabilitation; then she might return for further PF PT if needed. Work towards deep breathing over 5-6 secs each inhale/exhale (Goal #5). Cont PF training for proper coordination of contractions with physical cuing and EMG stim. Biofeedback neuro- reeducation for relaxation between contractions. Monitor bowel function and possible hindrance to bladder training.
--- NOTE | 2019-02-01 15:09 | PT.OTN ---
Current Diagnoses Muscle weakness (generalized) (02/01/19) Other symptoms and signs involving the musculoskeletal system (02/01/19) Frequency of micturition (02/01/19) Physical Therapy Treatment Note PT-OP-A Visit Information Start: 10/09/18 11:23 Freq: Status: Active Protocol: Document 02/01/19 12:48 LRN (Rec: 02/01/19 13:43 LRN [id number]) Out-Patient Physical Therapy Visit Information Visit Information Visit Type Progress Note Visit Start Time 12:49 Visit Stop Time 13:30 Total Visit Minutes 41 Visit Number 9 Number of REGIONAL COMMERCIAL SALES MANAGER Visits 0 Evaluation Information Evaluation Date 10/09/18 Precautions Precautions Hx of , adenoidectomy , tubal ligation, D&C. PT-OP-B Current Condition Start: 10/09/18 11:23 Freq: Status: Active Protocol: Document 10/09/18 11:24 LRN (Rec: 10/09/18 11:36 LRN [id number]) Current Condition History of Current Condition Onset Date 1 yr ago. Current Complaints Urgency to urinate sometimes. History of Current Condition With Oxybutynin now able to sleep through the night. History of 2 children. C- section first and episiotomy with 2nd. Tubal ligation - early 's. D & C. Prior Treatments and Tests Pelvic ultrasound for cyst on ovaries (found to be negative( . Developmental History Developmental History Long history of UTI for 15 yrs , and was taken off medications 4-5 yrs ago, then starting to have urgency and was put on Oxybutynin 1 yr ago for the urge. She has felt like she had a UTI, but tests were negative (was feeling urgency and burning with urination). Last summer was getting up 5-6 times/night. Treatment Goals Patient/Caregiver Goals Pt goal with therapy is to decrease number of times urinating during the day. 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 Current Functional Impairments (Reported) Functional Limitations- Other Limited in activities outside the home due to frequency of urination. Personal Factors Other Personal Factors That May Effect History of tubal ligation, D&C Therapy/Recovery , Anxiety controlled with medication Medication: Oxybutynin chloride PT-OP-C Subjective Start: 10/09/18 11:23 Freq: Status: Active Protocol: Document 02/01/19 12:48 LRN (Rec: 02/01/19 13:43 LRN [id number]) OP-PT Subjective Patient Comments Patient Comments Not going to the bathroom as much and can hold urine without fear of leaking. Can go 2-3 hours without voiding. PT-OP-H Neuro Start: 10/09/18 11:23 Freq: Status: Active Protocol: Document 10/09/18 11:24 LRN (Rec: 10/09/18 16:24 LRN [id number]) Sensation Evaluation Comments Summary Comments Not formally assessed. Pt noted not feeling hardened stool in perineum. PT-OP-I Pelvic Floor Start: 10/09/18 11:23 Freq: Status: Active Protocol: Document 02/01/19 12:48 LRN (Rec: 02/01/19 13:43 LRN [id number]) Pelvic Floor Assessment Urine Urinary Symptoms Urge Sensation Leakage Size Small Pelvic Clock Pelvic Clock 3-6 Tenderness Prolapse Cystocele Grade 1 Contraction Ability Voluntary Contraction Absent Voluntary Relaxation Weak Manual Muscle Testing Left 2 Manual Muscle Testing Right 2 Manual Muscle Testing Anterior 0 Manual Muscle Testing Posterior 3 Muscle Endurance (Seconds) 9 Number of Quick Contractions In 10 10 Seconds Comments Pelvic Floor Comments Sidewalls: have occasional lift for strength grade 2-3/5. PT-OP-J Posture/Palpation/Skin Start: 10/09/18 11:23 Freq: Status: Active Protocol: Document 10/09/18 11:24 LRN (Rec: 10/09/18 17:03 LRN [id number]) Posture Evaluation Comments Posture Comments Standing: Pt demonstrates moderate forward head posturing, increased lordosis, elevated R shoulder and scapula, C-curve of the spine with the apex on the right, level pelvis. PT-OP-K Range of Motion Start: 10/09/18 11:23 Freq: Status: Active Protocol: Document 10/09/18 11:24 LRN (Rec: 10/09/18 17:03 LRN [id number]) Hip Goniometric Range of Motion Hip Right Passive Testing Position Supine Flexion w/Knee Flexed 90 Extension 5 Abduction 30 Internal Rotation 30 External Rotation 60 Left Passive Testing Position Supine Flexion w/Knee Flexed 90 Extension 3 Abduction 22 Internal Rotation 45 External Rotation 55 PT-OP-M Strength Start: 10/09/18 11:23 Freq: Status: Active Protocol: Document 10/09/18 11:24 LRN (Rec: 10/09/18 17:03 LRN [id number]) Trunk Strength Trunk Manual Muscle Testing Testing Position Supine Flexion 4 Good Rotation Left 4 Good Rotation Right 3 Fair Core Stabilization Pt unable to maintain core stability during MMT of LE's. Hip Strength Hip Manual Muscle Testing Right Flexion (L2) 4+ Good+ Extension (S1) 3 Fair Abduction 5 Normal Adduction 5 Normal External Rotation 5 Normal Internal Rotation 4+ Good+ Left Flexion (L2) 4 Good Extension (S1) 3 Fair Adduction 4+ Good+ External Rotation 4+ Good+ Internal Rotation 4+ Good+ PT-OP-Q Treatments Start: 10/09/18 11:23 Freq: Status: Active Protocol: Document 01/03/19 11:26 LRN (Rec: 01/03/19 12:25 LRN [id number]) Therapeutic Exercises Supine Exercises Deep Breathing Supine Exercise Name Deep Breathing with verbal and physical cuing Reps/Minutes 5' Comments Inhale 3 sec > 5 sec, exhale is good Neuro Re-Education Treatment Other Activities PF contraction with manual stim Details Physical cuing of PF contraction Reps/Duration 20' Comments Fist on perineum with pt pulling away from fist during PF contraction EMG Biofeedback Details Relaxation of resting tone, and contraction of PF w/o bulging. Reps/Duration 15' PT-OP-T Assessment and Plan Start: 10/09/18 11:23 Freq: Status: Active Protocol: Document 02/01/19 12:48 LRN (Rec: 02/01/19 13:43 LRN [id number]) Physical Therapy Assessment Rehab Potential Rehabilitation Potential Good Evaluation Complexity Number of Personal Factors/Comorbidities 1-2 Number of Body Systems Impaired 1-2 Clinical Presentation at Evaluation Stable Impairments Impairments Strength Assessment Summary Assessment The pt return to therapy after 4 weeks of absence due to vacation trips. Today on internal assessment she was able to intermittently perform a PF contraction of pulling up when assisted with deep breathing, otherwise she primarily tends to Valsalva and push out on her PF during a contraction. The pt is pushing out with her anterior, and lateral garcia of the PF. Posteriorly she does not push out. Further training would be beneficial for the pt to learn how to perform a proper pelvic floor contraction to minimize the downward pressure on her bladder. She does not appear to be exerting (in supine) the same pressure through the rectal area. Physical Therapy Plan Frequency and Duration Frequency of Treatment 1x/Week Plan of Care Start Date 02/01/19 Plan of Care End Date 03/15/19 Therapeutic Interventions Therapeutic Interventions Home Exercise Program,Manual Therapy,Neuromuscular Re- education,Patient/Caregiver Education,Self-Care/Home Management,Soft Tissue Mobilization,Therapeutic Exercises Modalities Biofeedback,Electric Stimulation Next Visit Focus/Plan Next Note Type Treatment Note Next Visit Plan Continue PF training for proper coordination of contraction and muscle relaxation. When pt is able to perform a proper PF contraction or is aware of how to perform the contraction at home, then DC from therapy for her PF and start R medial knee rehabilitation, per CELESTINO Mccullough. Once pt has completed her R knee rehabilitation; then she might need to return for further PF training. Work towards deep breathing over 5-6 secs each inhale/exhale (Goal #5). Cont PF training for proper coordination of contractions with physical cuing and EMG stim. Biofeedback neuro- reeducation for relaxation between contractions. Monitor bowel function, as it is a possible hindrance to bladder training.
--- NOTE | 2019-02-01 15:15 | PT.OPPOC ---
Current Diagnoses Muscle weakness (generalized) (02/01/19) Other symptoms and signs involving the musculoskeletal system (02/01/19) Frequency of micturition (02/01/19) Visit Care Team Role Provider Type SANDRA Miranda Attending Provider Non-Staff Primary Care Provider Specialty: Medical Address: [address] [place] [address], [id number] Email: Plan Of Care PT-OP-T Assessment and Plan Start: 10/09/18 11:23 Freq: Status: Active Protocol: Document 02/01/19 12:48 LRN (Rec: 02/01/19 13:43 LRN [id number]) Physical Therapy Assessment Rehab Potential Rehabilitation Potential Good Evaluation Complexity Number of Personal Factors/Comorbidities 1-2 Number of Body Systems Impaired 1-2 Clinical Presentation at Evaluation Stable Impairments Impairments Strength Goals Five Impairment Pt not able to perform deep breathing properly Short Term Goal (STG) Pt will be able to demonstrate proper deep breathing STG Duration 01/31/19 (11/26/18: GOAL MET, but inhalation is only a 3 sec breath) Four Impairment PF weakness of 0/5 Reconcilement Clerk Goal (LTG) Pt will demonstrate a PF strength of at least 2/5 of the pelvic floor clock. LTG Duration 01/31/19 (02/01/19: PF strength is 3/5 except anterior PF strength is 0/5) Three Impairment Symptoms of Urgency with urination due to weak sphincter muscles Short Term Goal (STG) Improve PF strength to 1/5. STG Duration 11/06/18 (02/01/19: Anterior PF strength is 0/5, otherwise 2-3 /5) Skilled Nursing Goal (LTG) Improve PF superficial strength in order to identify a need for urination without urgency. LTG Duration 12/04/18 (12/24/18 GOAL MET) Two Impairment Poor awareness of a proper PF contraction Short Term Goal (STG) Pt will be able to identify a proper PF contraction. STG Duration 11/06/18 (11/12/18: GOAL MET, but pt is not able to perform correctly) Reconcilement Clerk Goal (LTG) Pt will be able to perform a pulling up PF contraction and will be able to minimize bulging out with a PF contraction. LTG Duration 01/31/19 (02/01/19: GOAL NOT MET) One Impairment Lacks appropriate self care HEP Skilled Nursing Goal (LTG) Pt will be independent with a self care HEP. LTG Duration 01/31/19 (02/01/19: Progressing) Assessment Summary Assessment The pt return to therapy after 4 weeks of absence due to vacation trips. Today on internal assessment she was able to intermittently perform a PF contraction of pulling up when assisted with deep breathing, otherwise she primarily tends to Valsalva and push out on her PF during a contraction. The pt is pushing out with her anterior, and lateral garcia of the PF. Posteriorly she does not push out. Further training would be beneficial for the pt to learn how to perform a proper pelvic floor contraction to minimize the downward pressure on her bladder. She does not appear to be exerting (in supine) the same pressure through the rectal area. Physical Therapy Plan Frequency and Duration Frequency of Treatment 1x/Week Plan of Care Start Date 02/01/19 Plan of Care End Date 03/15/19 Therapeutic Interventions Therapeutic Interventions Home Exercise Program,Manual Therapy,Neuromuscular Re- education,Patient/Caregiver Education,Self-Care/Home Management,Soft Tissue Mobilization,Therapeutic Exercises Modalities Biofeedback,Electric Stimulation Next Visit Focus/Plan Next Note Type Treatment Note Next Visit Plan Continue PF training for proper coordination of contraction and muscle relaxation. When pt is able to perform a proper PF contraction or is aware of how to perform the contraction at home, then DC from therapy for her PF and start R medial knee rehabilitation, per Poppy Sahu PAC. Once pt has completed her R knee rehabilitation; then she might need to return for further PF training. Work towards deep breathing over 5-6 secs each inhale/exhale (Goal #5). Cont PF training for proper coordination of contractions with physical cuing and EMG stim. Biofeedback neuro- reeducation for relaxation between contractions. Monitor bowel function, as it is a possible hindrance to bladder training. Plan of Care Dates Plan of Care Start Date 02/01/19 Plan of Care End Date 03/15/19
--- NOTE | 2019-02-01 15:23 | PT.OTN ---
Current Diagnoses Muscle weakness (generalized) (02/01/19) Other symptoms and signs involving the musculoskeletal system (02/01/19) Frequency of micturition (02/01/19) Physical Therapy Treatment Note PT-OP-A Visit Information Start: 10/09/18 11:23 Freq: Status: Active Protocol: Document 02/01/19 12:48 LRN (Rec: 02/01/19 13:43 LRN [id number]) Out-Patient Physical Therapy Visit Information Visit Information Visit Type Progress Note Visit Start Time 12:49 Visit Stop Time 13:30 Total Visit Minutes 41 Visit Number 9 Number of ELEVATOR CONSTRUCTOR HYDRAULIC Visits 0 Evaluation Information Evaluation Date 10/09/18 Precautions Precautions Hx of , adenoidectomy , tubal ligation, D&C. PT-OP-B Current Condition Start: 10/09/18 11:23 Freq: Status: Active Protocol: Document 10/09/18 11:24 LRN (Rec: 10/09/18 11:36 LRN [id number]) Current Condition History of Current Condition Onset Date 1 yr ago. Current Complaints Urgency to urinate sometimes. History of Current Condition With Oxybutynin now able to sleep through the night. History of 2 children. C- section first and episiotomy with 2nd. Tubal ligation - early 's. D & C. Prior Treatments and Tests Pelvic ultrasound for cyst on ovaries (found to be negative( . Developmental History Developmental History Long history of UTI for 15 yrs , and was taken off medications 4-5 yrs ago, then starting to have urgency and was put on Oxybutynin 1 yr ago for the urge. She has felt like she had a UTI, but tests were negative (was feeling urgency and burning with urination). Last summer was getting up 5-6 times/night. Treatment Goals Patient/Caregiver Goals Pt goal with therapy is to decrease number of times urinating during the day. 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 Current Functional Impairments (Reported) Functional Limitations- Other Limited in activities outside the home due to frequency of urination. Personal Factors Other Personal Factors That May Effect History of tubal ligation, D&C Therapy/Recovery , Anxiety controlled with medication Medication: Oxybutynin chloride PT-OP-C Subjective Start: 10/09/18 11:23 Freq: Status: Active Protocol: Document 02/01/19 12:48 LRN (Rec: 02/01/19 13:43 LRN [id number]) OP-PT Subjective Patient Comments Patient Comments Not going to the bathroom as much and can hold urine without fear of leaking. Can go 2-3 hours without voiding. PT-OP-H Neuro Start: 10/09/18 11:23 Freq: Status: Active Protocol: Document 10/09/18 11:24 LRN (Rec: 10/09/18 16:24 LRN [id number]) Sensation Evaluation Comments Summary Comments Not formally assessed. Pt noted not feeling hardened stool in perineum. PT-OP-I Pelvic Floor Start: 10/09/18 11:23 Freq: Status: Active Protocol: Document 02/01/19 12:48 LRN (Rec: 02/01/19 13:43 LRN [id number]) Pelvic Floor Assessment Urine Urinary Symptoms Urge Sensation Leakage Size Small Pelvic Clock Pelvic Clock 3-6 Tenderness Prolapse Cystocele Grade 1 Contraction Ability Voluntary Contraction Absent Voluntary Relaxation Weak Manual Muscle Testing Left 2 Manual Muscle Testing Right 2 Manual Muscle Testing Anterior 0 Manual Muscle Testing Posterior 3 Muscle Endurance (Seconds) 9 Number of Quick Contractions In 10 10 Seconds Comments Pelvic Floor Comments Sidewalls: have occasional lift for strength grade 2-3/5. PT-OP-J Posture/Palpation/Skin Start: 10/09/18 11:23 Freq: Status: Active Protocol: Document 10/09/18 11:24 LRN (Rec: 10/09/18 17:03 LRN [id number]) Posture Evaluation Comments Posture Comments Standing: Pt demonstrates moderate forward head posturing, increased lordosis, elevated R shoulder and scapula, C-curve of the spine with the apex on the right, level pelvis. PT-OP-K Range of Motion Start: 10/09/18 11:23 Freq: Status: Active Protocol: Document 10/09/18 11:24 LRN (Rec: 10/09/18 17:03 LRN [id number]) Hip Goniometric Range of Motion Hip Right Passive Testing Position Supine Flexion w/Knee Flexed 90 Extension 5 Abduction 30 Internal Rotation 30 External Rotation 60 Left Passive Testing Position Supine Flexion w/Knee Flexed 90 Extension 3 Abduction 22 Internal Rotation 45 External Rotation 55 PT-OP-M Strength Start: 10/09/18 11:23 Freq: Status: Active Protocol: Document 10/09/18 11:24 LRN (Rec: 10/09/18 17:03 LRN [id number]) Trunk Strength Trunk Manual Muscle Testing Testing Position Supine Flexion 4 Good Rotation Left 4 Good Rotation Right 3 Fair Core Stabilization Pt unable to maintain core stability during MMT of LE's. Hip Strength Hip Manual Muscle Testing Right Flexion (L2) 4+ Good+ Extension (S1) 3 Fair Abduction 5 Normal Adduction 5 Normal External Rotation 5 Normal Internal Rotation 4+ Good+ Left Flexion (L2) 4 Good Extension (S1) 3 Fair Adduction 4+ Good+ External Rotation 4+ Good+ Internal Rotation 4+ Good+ PT-OP-Q Treatments Start: 10/09/18 11:23 Freq: Status: Active Protocol: Document 02/01/19 12:48 LRN (Rec: 02/01/19 15:23 LRN [id number]) Neuro Re-Education Treatment Other Activities PF training Details Training for awareness of proper PF contraction Reps/Duration 39 Comments PF training with v. cuing, physical cuing (perineum, internal palp and internal with vaginal sensor), visual cuing (mirror, simulation of fist on hands), combinations of the different types of cuing. PT-OP-T Assessment and Plan Start: 10/09/18 11:23 Freq: Status: Active Protocol: Document 02/01/19 12:48 LRN (Rec: 02/01/19 13:43 LRN [id number]) Physical Therapy Assessment Rehab Potential Rehabilitation Potential Good Evaluation Complexity Number of Personal Factors/Comorbidities 1-2 Number of Body Systems Impaired 1-2 Clinical Presentation at Evaluation Stable Impairments Impairments Strength Goals Five Impairment Pt not able to perform deep breathing properly Short Term Goal (STG) Pt will be able to demonstrate proper deep breathing STG Duration 01/31/19 (11/26/18: GOAL MET, but inhalation is only a 3 sec breath) Four Impairment PF weakness of 0/5 [facility] Goal (LTG) Pt will demonstrate a PF strength of at least 2/5 of the pelvic floor clock. LTG Duration 01/31/19 (02/01/19: PF strength is 3/5 except anterior PF strength is 0/5) Three Impairment Symptoms of Urgency with urination due to weak sphincter muscles Short Term Goal (STG) Improve PF strength to 1/5. STG Duration 11/06/18 (02/01/19: Anterior PF strength is 0/5, otherwise 2-3 /5) [facility] Goal (LTG) Improve PF superficial strength in order to identify a need for urination without urgency. LTG Duration 12/04/18 (12/24/18 GOAL MET) Two Impairment Poor awareness of a proper PF contraction Short Term Goal (STG) Pt will be able to identify a proper PF contraction. STG Duration 11/06/18 (11/12/18: GOAL MET, but pt is not able to perform correctly) [facility] Goal (LTG) Pt will be able to perform a pulling up PF contraction and will be able to minimize bulging out with a PF contraction. 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 LTG Duration 01/31/19 (02/01/19: Progressing) Assessment Summary Assessment The pt return to therapy after 4 weeks of absence due to vacation trips. Today on internal assessment she was able to intermittently perform a PF contraction of pulling up when assisted with deep breathing, otherwise she primarily tends to Valsalva and push out on her PF during a contraction. The pt is pushing out with her anterior, and lateral garcia of the PF. Posteriorly she does not push out. Further training would be beneficial for the pt to learn how to perform a proper pelvic floor contraction to minimize the downward pressure on her bladder. She does not appear to be exerting (in supine) the same pressure through the rectal area. Physical Therapy Plan Frequency and Duration Frequency of Treatment 1x/Week Plan of Care Start Date 02/01/19 Plan of Care End Date 03/15/19 Therapeutic Interventions Therapeutic Interventions Home Exercise Program,Manual Therapy,Neuromuscular Re- education,Patient/Caregiver Education,Self-Care/Home Management,Soft Tissue Mobilization,Therapeutic Exercises Modalities Biofeedback,Electric Stimulation Next Visit Focus/Plan Next Note Type Treatment Note Next Visit Plan Continue PF training for proper coordination of contraction and muscle relaxation. When pt is able to perform a proper PF contraction or is aware of how to perform the contraction at home, then DC from therapy for her PF and start R medial knee rehabilitation, per Poppy Sahu, PAC. Once pt has completed her R knee rehabilitation; then she might need to return for further PF training. Work towards deep breathing over 5-6 secs each inhale/exhale (Goal #5). Cont PF training for proper coordination of contractions with physical cuing and EMG stim. Biofeedback neuro- reeducation for relaxation between contractions. Monitor bowel function, as it is a possible hindrance to bladder training.
--- NOTE | 2019-02-05 16:41 | PT.OTN ---
Current Diagnoses Muscle weakness (generalized) (02/05/19) Other symptoms and signs involving the musculoskeletal system (02/05/19) Frequency of micturition (02/05/19) Physical Therapy Treatment Note PT-OP-A Visit Information Start: 10/09/18 11:23 Freq: Status: Active Protocol: Document 02/05/19 08:17 LRN (Rec: 02/05/19 09:10 LRN [id number]) Out-Patient Physical Therapy Visit Information Visit Information Visit Type Treatment Note Visit Start Time 08:17 Visit Stop Time 09:09 Total Visit Minutes 52 Visit Number 10 Number of ROSS CARRIER DRIVER Visits 0 Evaluation Information Evaluation Date 10/09/18 Precautions Precautions Hx of , adenoidectomy , tubal ligation, D&C. PT-OP-B Current Condition Start: 10/09/18 11:23 Freq: Status: Active Protocol: Document 10/09/18 11:24 LRN (Rec: 10/09/18 11:36 LRN [id number]) Current Condition History of Current Condition Onset Date 1 yr ago. Current Complaints Urgency to urinate sometimes. History of Current Condition With Oxybutynin now able to sleep through the night. History of 2 children. C- section first and episiotomy with 2nd. Tubal ligation - early 's. D & C. Prior Treatments and Tests Pelvic ultrasound for cyst on ovaries (found to be negative( . Developmental History Developmental History Long history of UTI for 15 yrs , and was taken off medications 4-5 yrs ago, then starting to have urgency and was put on Oxybutynin 1 yr ago for the urge. She has felt like she had a UTI, but tests were negative (was feeling urgency and burning with urination). Last summer was getting up 5-6 times/night. Treatment Goals Patient/Caregiver Goals Pt goal with therapy is to decrease number of times urinating during the day. 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 Current Functional Impairments (Reported) Functional Limitations- Other Limited in activities outside the home due to frequency of urination. Personal Factors Other Personal Factors That May Effect History of tubal ligation, D&C Therapy/Recovery , Anxiety controlled with medication Medication: Oxybutynin chloride PT-OP-C Subjective Start: 10/09/18 11:23 Freq: Status: Active Protocol: Document 02/05/19 08:17 LRN (Rec: 02/05/19 09:10 LRN [id number]) OP-PT Subjective Patient Comments Patient Comments Doing home ex's and thinks the contractions are better. PT-OP-H Neuro Start: 10/09/18 11:23 Freq: Status: Active Protocol: Document 10/09/18 11:24 LRN (Rec: 10/09/18 16:24 LRN [id number]) Sensation Evaluation Comments Summary Comments Not formally assessed. Pt noted not feeling hardened stool in perineum. PT-OP-I Pelvic Floor Start: 10/09/18 11:23 Freq: Status: Active Protocol: Document 02/05/19 08:17 LRN (Rec: 02/05/19 09:10 LRN [id number]) Pelvic Floor Assessment Urine Leaks Per Day 0 Prolapse Cystocele Grade 1 Perineal Descent Bearing Present SEMG (uV) Baseline 4.0 Quick Contraction 8.5 10 Second Contraction 6.1 Recruitment Pattern Fair Relaxation Fair Holding Fair Stability of Hold Poor/Slow SEMG Stability of Rest Fair Contraction Ability Voluntary Contraction Weak Manual Muscle Testing Left 3 Manual Muscle Testing Right 3 Manual Muscle Testing Anterior 0 Manual Muscle Testing Posterior 3 Muscle Endurance (Seconds) 3 PT-OP-J Posture/Palpation/Skin Start: 10/09/18 11:23 Freq: Status: Active Protocol: Document 10/09/18 11:24 LRN (Rec: 10/09/18 17:03 LRN [id number]) Posture Evaluation Comments Posture Comments Standing: Pt demonstrates moderate forward head posturing, increased lordosis, elevated R shoulder and scapula, C-curve of the spine with the apex on the right, level pelvis. PT-OP-K Range of Motion Start: 10/09/18 11:23 Freq: Status: Active Protocol: Document 02/05/19 08:17 LRN (Rec: 02/05/19 16:09 LRN [id number]) Hip Goniometric Range of Motion Hip Right Passive Testing Position Supine Abduction 22 Internal Rotation 10 External Rotation 60 Left Passive Testing Position Supine Abduction 30 Internal Rotation 32 External Rotation 74 PT-OP-M Strength Start: 10/09/18 11:23 Freq: Status: Active Protocol: Document 02/05/19 08:17 LRN (Rec: 02/05/19 16:09 LRN [id number]) Hip Strength Hip Manual Muscle Testing Right Reason Not Measured WFL Left Reason Not Measured WFL PT-OP-Q Treatments Start: 10/09/18 11:23 Freq: Status: Active Protocol: Document 02/05/19 08:17 LRN (Rec: 02/05/19 09:10 LRN [id number]) Therapeutic Exercises Supine Exercises PF Contractions Supine Exercise Name Quick Flicks and Long Holds Reps/Minutes 15' Comments Assessment of PF Deep Breathing Supine Exercise Name Deep Breathing with verbal and physical cuing Reps/Minutes 10' Comments Inhale 4-5 sec, exhale is good Self-Care/Home Management Treatment Education Patient Education Home Exercise Program Activities Self-Care/Home Management Activities Reviewed with pt focus of HEP for improving Deep Breathing to 6 secs inhale/exhale and for PF contraction in isolation of TA, and PF contraction without pushing out of vaginal electrode. PT-OP-T Assessment and Plan Start: 10/09/18 11:23 Freq: Status: Active Protocol: Document 02/05/19 08:17 LRN (Rec: 02/05/19 09:10 LRN [id number]) Physical Therapy Assessment Goals Five Impairment Pt not able to perform deep breathing properly Short Term Goal (STG) Pt will be able to demonstrate proper deep breathing STG Duration 01/31/19 (11/26/18: GOAL MET, inhalation/exhalation is 5-6 sec breath) Four Impairment PF weakness of 0/5 [facility] Goal (LTG) Pt will demonstrate a PF strength of at least 2/5 of the pelvic floor clock. LTG Duration 01/31/19 (02/01/19: PF strength is 3/5 except anterior PF strength is 0/5) Three Impairment Symptoms of Urgency with urination due to weak sphincter muscles Short Term Goal (STG) Improve PF strength to 1/5. STG Duration 11/06/18 (02/01/19: Anterior PF strength is 0/5, otherwise 2-3 /5) [facility] Goal (LTG) Improve PF superficial strength in order to identify a need for urination without urgency. LTG Duration 12/04/18 (12/24/18 GOAL MET) Two Impairment Poor awareness of a proper PF contraction Short Term Goal (STG) Pt will be able to identify a proper PF contraction. STG Duration 11/06/18 (11/12/18: GOAL MET, but pt is not able to perform correctly) [facility] Goal (LTG) Pt will be able to perform a pulling up PF contraction and will be able to minimize bulging out with a PF contraction. 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 LTG Duration 01/31/19 (02/05/19: GOAL MET) Assessment Summary Assessment Pt presents today demonstrating overall improved PF strength although her anterior PF continues to be weak. She returned today not bearing down as much as initially when performing a PF contraction, but she continues to bear down enough to push out her vaginal electrode. The pt has poor to fair awareness of her pushing down on her organs during a PF contraction. She is aware of this and plans to work on improving the coordination of her contractions. If the pt is unable to achieve an appropriate PF contraction technique and continues to have trouble with constipation , then she runs a risk of having a prolapse in the future. The pt understands that it might be beneficial to return to PF therapy after she completes her R knee rehab program and may seek return to physical therapy for follow up care and reassessment of her PF. Physical Therapy Plan Discharge Physical Therapy Discharge Reasons Change in Medical Status Discharge Comments Pt has been placed on an independent HEP for her pelvic floor and will soon start rehabilitation for her R knee. Thank you for your referral.
== END 2019-02-05 09:15 | disposition home or self-care (01) ==
LOC: PHYS 08:15
PROVIDERS: PCP Nurse Practitioner Family; Visit Provider Nurse Practitioner Family
DX: R35.0 Frequency of micturition (principal); M62.81 Muscle weakness (generalized); R29.898 Other symptoms and signs involving the musculoskeletal system
CPT/HCPCS: 97110; 97112; 97140; 97161; 97535

== ENCOUNTER 2019-04-11 09:45 | Outpatient (RCR) | payer OTHER, SELFPAY ==
--- NOTE | 2019-02-11 12:16 | PT.OIE ---
Current Diagnoses Muscle weakness (generalized) (02/11/19) Other tear of medial meniscus, current injury, right knee, initial encounter (02/11/19) Other reduced mobility (02/11/19) Visit Care Team Role Provider Type SANDRA Miranda Other Providers Non-Staff Primary Care Provider Specialty: Medical Address: [address] [place] [address], [id number] Email: Poppy Sahu PA-C Attending Provider Advanced Knifeman Specialty: Orthopedics Address: [address] [place] [address], [id number] Email: [email or web address] [facility] Initial Evaluation PT-OP-A Visit Information Start: 02/11/19 08:04 Freq: Status: Active Protocol: Document 02/11/19 09:50 LRN (Rec: 02/11/19 11:07 LRN [id number]) Out-Patient Physical Therapy Visit Information Visit Information Visit Type Initial Evaluation Visit Start Time 09:50 Visit Stop Time 10:37 Total Visit Minutes 47 Visit Number 1 Number of PATIENT ACCESS SPECIALIST Visits 0 Evaluation Information Evaluation Date 02/11/19 Precautions Precautions Osteopenia, hx of depression/ anxiety controlled by meds. Recent therapy for urinary incontinence (high tone). PT-OP-B Current Condition Start: 02/11/19 08:04 Freq: Status: Active Protocol: Document 02/11/19 09:50 LRN (Rec: 02/11/19 11:07 LRN [id number]) Current Condition History of Current Condition Onset Date 12/05/18. Current Complaints Discomfort in medial R knee, achy. Not able to stand long. History of Current Condition Was stepping down to get out of a [employer] van and heard a pop from the R leg that she was stepping down onto. She had immediate pain and some swelling. A week later saw the orthopedic surgeon and was told no surgery needed. That week she had severe pain and was given a cortisone shot a week later that she feels did not help much, and was given a referral for PT. Daughter, who is a nurse, told her to take Tylenol (not IBP due to recent injection). Currently R knee pain is variable. Standing or sitting too long it is worse 4/10, at its best it is 1/10. Using Ice pack on the knee 2x/day. Prior Treatments and Tests X-ray: No fracture, mild joint degeneration. Future Testing and Treatments Planned None Treatment Goals Patient/Caregiver Goals Pt goal is to be healed in 2 months, but it has been 2 months. She is hoping to be healed after 2 months of therapy. Prior Functional Status Baseline Function- ADL's Independent Baseline Function- Mobility Independent Current Functional Impairments (Reported) Functional Limitations- ADL's Getting up/down from floor. Squatting. Pain with deep stair ambulation. Putting shoes on. Functional Limitations- Mobility/Gait Normal unless knee is hurting. Functional Limitations- Recreation/ Exercise walking & gardening ( Hobbies kneeling and weeding) Personal Factors Other Personal Factors That May Effect Osteopenia Therapy/Recovery Anxiety controlled with medication PT-OP-C Subjective Start: 02/11/19 08:04 Freq: Status: Active Protocol: Document 02/11/19 09:50 LRN (Rec: 02/11/19 11:07 LRN [id number]) Patient Questionnaires Lower Extremity Functional Scale LEFS Score 33 LEFS Impairment 40 to 59% Impaired (Score 32- 47) OP-PT Pain Assessment Pain Assessment Grid Paper Pain Assessment Grid Completed Yes Location R knee Pain Location Details R medial plateau of Tibia, sometimes all around the front of the knee. Intensity 4 Scale Used Numeric (1 - 10) Description Dull,Pressure,Sharp,Shooting Description- Other Popping Frequency Intermittent Pain Duration Variable Radiating Location Radiates around to the front of the R knee. Pain Alleviating Factors Cold,Sitting Other Pain Alleviating Factors IBP, elevating the leg. PT-OP-F Manual Assessment Start: 02/11/19 08:04 Freq: Status: Active Protocol: Document 02/11/19 09:50 LRN (Rec: 02/11/19 11:44 LRN [id number]) Manual Assessments Soft Tissue Assessment Soft Tissue Mobility Assessment Tender at R knee: medial tibial plateau, medial epicondyle and medial tibial plateau. She has general discomfort around the R patella, anterior and lateral knee. Joint Mobility Assessment Joint Mobility Assessment Held due to pain behaviour with palpation of soft tissue and guarded posturing. PT-OP-H Neuro Start: 02/11/19 08:04 Freq: Status: Active Protocol: Document 02/11/19 09:50 LRN (Rec: 02/11/19 11:44 LRN [id number]) Sensation Evaluation Gross Sensation Gross Sensation WNL Deep Tendon Reflex & Clonus Assessment Deep Tendon Reflex Bilateral Achilles Deep Tendon Reflex 1+ Diminished Bilateral Patellar Deep Tendon Reflex 3+ Normal But Brisk PT-OP-J Posture/Palpation/Skin Start: 02/11/19 08:04 Freq: Status: Active Protocol: Document 02/11/19 09:50 LRN (Rec: 02/11/19 11:44 LRN [id number]) Posture Evaluation Position Standing Evaluation View All positions Head/C-Spine Posture Forward Head L-Spine Posture Rotation Right Knee Posture (L) Genu Recurvatum,(R) Genu Recurvatum Ankle/Foot Posture (R) Forefoot Eversion Foot Arch (L) Medium Arch,(R) Medium Arch Comments Posture Comments Standing: Pt demonstrates moderate forward head posturing, increased lordosis, elevated R shoulder and scapula, C-curve of the spine with the apex on the right, level pelvis. PT-OP-K Range of Motion Start: 02/11/19 08:04 Freq: Status: Active Protocol: Document 02/11/19 09:50 LRN (Rec: 02/11/19 11:44 LRN [id number]) Hip Goniometric Range of Motion Hip Right Passive Testing Position Supine Abduction 22 Internal Rotation 10 External Rotation 60 Left Passive Testing Position Supine Abduction 30 Internal Rotation 32 External Rotation 74 PT-OP-M Strength Start: 02/11/19 08:04 Freq: Status: Active Protocol: Document 02/11/19 09:50 LRN (Rec: 02/11/19 11:44 LRN [id number]) Hip Strength Hip Manual Muscle Testing Right Reason Not Measured WFL Left Reason Not Measured WFL Knee Strength Knee Manual Muscle Testing Right Flexion (S2) 4+ Good+ Extension (L3) 3 Fair Left Flexion (S2) 5 Normal Extension (L3) 5 Normal Ankle/Foot Strength Ankle and Foot Manual Muscle Testing Right Reason Not Measured WFL Left Reason Not Measured WFL PT-OP-Q Treatments Start: 02/11/19 08:04 Freq: Status: Active Protocol: Document 02/11/19 09:50 LRN (Rec: 02/11/19 11:44 LRN [id number]) Therapeutic Exercises Supine Exercises Quad sets Supine Exercise Name Quad Sets Side right Reps/Minutes 10 Hold x 10 Comments Pt does not relax between contractions and needs phys/v cues. Manual Therapy Treatment Taping R medial knee Body Location R medial knee Treatment Focus Space correction Type of Tape Kinesio Tape Skin Inspection Good Comments One I-strip vertically across medial knee joint with 25% stretch. Self-Care/Home Management Treatment Education Patient Education Home Exercise Program,Safety Other Education I/S pt to inspect skin and to monitor for signs of allergic reaction at the K-tape site. Pt was I/S in the safe and proper removal of K-tape. Pt is to remove tape if there are signs of allergic reaction and is to remove 1 day before next PT session. Activities Self-Care/Home Management Activities Pt I/S in QS ex for HEP, making sure she achieves a relaxation phase with the ex. PT-OP-T Assessment and Plan Start: 02/11/19 08:04 Freq: Status: Active Protocol: Document 02/11/19 09:50 LRN (Rec: 02/11/19 11:07 LRN [id number]) Physical Therapy Assessment Rehab Potential Rehabilitation Potential Good Evaluation Complexity Number of Personal Factors/Comorbidities 1-2 Number of Body Systems Impaired 4 or More Clinical Presentation at Evaluation Stable Impairments Impairments Activity Tolerance,Balance, Functional Mobility,Pain, Posture,Strength Goals Seven Impairment R knee pain with prolonged sitting or standing. Jail Goal (LTG) Pt will have no R medial knee pain with prolonged sitting or standing. LTG Duration 04/08/19 Six Impairment R medial knee pain rated 1-4/ 10 intermittently Short Term Goal (STG) Decrease R medial knee pain to 1-2/10, intermittently. STG Duration 03/11/19 Carton Maker Goal (LTG) Pt will be able to squat with R knee pain no greater than 1/ 10 and intermittent knee pain no greater than 1/10. LTG Duration 04/08/19 Five Impairment Pt not able to perform deep breathing properly with ex Short Term Goal (STG) Pt will be able to demonstrate proper deep breathing with ex STG Duration 04/08/19 One Impairment Lacks appropriate self care HEP Carton Maker Goal (LTG) Pt will be independent with a self care HEP. LTG Duration 04/08/19 Assessment Summary Assessment Pt presents with notable tenderness of the R medial knee upon palpation. She describes symptoms of meniscus involvement of clicking in the knee joint, swelling at the medial knee and difficulty squatting and with prolonged positioning in standing and sitting. Provocation tests were deferred due to pain only with palpation of the R knee. The pt doesn't display gait dysfunction today because she is in very little pain, but she does demonstrate weakness of the knee due to pain. The pt will benefit from skilled physical therapy to decrease edema, increase strength and stability at the R knee and improve functional mobility for squatting, prolonged standing and stair ambulation. Physical Therapy Plan Frequency and Duration Frequency of Treatment 2x/Week Duration of Treatment 8 weeks Plan of Care Start Date 02/11/19 Plan of Care End Date 04/08/19 Therapeutic Interventions Therapeutic Interventions Aquatic Therapy,Balance Training,Gait Training,Home Exercise Program,Joint Mobilizations,Manual Therapy, Neuromuscular Re-education, Patient/Caregiver Education, Self-Care/Home Management,Soft Tissue Mobilization,Taping, Therapeutic Exercises Modalities Cold Pack/Ice Massage,Electric Stimulation,Iontophoresis, Ultrasound Other Therapeutic Interventions Iontophoresis with 4mg/mL dexamethasone with Sodium Phospate. Next Visit Focus/Plan Next Note Type Treatment Note Next Visit Plan Review HEP (QS) and assess pt' s response to K-tape. Assess SLS and knee/ankle mobility. Start open chain knee strengthening and strengthening of ankle/hips ( with deep breathing). Modalities (Ultrasound, Laser, E-Stim), K-tape for space correction and/or medial joint stability. Progress HEP as appropriate.
--- NOTE | 2019-02-14 13:18 | PT.OTN ---
Current Diagnoses Muscle weakness (generalized) (02/14/19) Other tear of medial meniscus, current injury, right knee, initial encounter (02/14/19) Other reduced mobility (02/14/19) Physical Therapy Treatment Note PT-OP-A Visit Information Start: 02/11/19 08:04 Freq: Status: Active Protocol: Document 02/14/19 09:45 LRN (Rec: 02/14/19 10:37 LRN [id number]) Out-Patient Physical Therapy Visit Information Visit Information Visit Type Initial Evaluation Visit Start Time 09:45 Visit Stop Time 10:44 Total Visit Minutes 59 Visit Number 2 Number of SEMICONDUCTOR ASSEMBLER Visits 0 Evaluation Information Evaluation Date 02/11/19 Precautions Precautions Osteopenia, hx of depression/ anxiety controlled by meds. Recent therapy for urinary incontinence (high tone). PT-OP-B Current Condition Start: 02/11/19 08:04 Freq: Status: Active Protocol: Document 02/11/19 09:50 LRN (Rec: 02/11/19 11:07 LRN [id number]) Current Condition History of Current Condition Onset Date 12/05/18. Current Complaints Discomfort in medial R knee, achy. Not able to stand long. History of Current Condition Was stepping down to get out of a [employer] van and heard a pop from the R leg that she was stepping down onto. She had immediate pain and some swelling. A week later saw the orthopedic surgeon and was told no surgery needed. That week she had severe pain and was given a cortisone shot a week later that she feels did not help much, and was given a referral for PT. Daughter, who is a nurse, told her to take Tylenol (not IBP due to recent injection). Currently R knee pain is variable. Standing or sitting too long it is worse 4/10, at its best it is 1/10. Using Ice pack on the knee 2x/day. Prior Treatments and Tests X-ray: No fracture, mild joint degeneration. Future Testing and Treatments Planned None Treatment Goals Patient/Caregiver Goals Pt goal is to be healed in 2 months, but it has been 2 months. She is hoping to be healed after 2 months of therapy. Prior Functional Status Baseline Function- ADL's Independent Baseline Function- Mobility Independent Current Functional Impairments (Reported) Functional Limitations- ADL's Getting up/down from floor. Squatting. Pain with deep stair ambulation. Putting shoes on. Functional Limitations- Mobility/Gait Normal unless knee is hurting. Functional Limitations- Recreation/ Exercise walking & gardening ( Hobbies kneeling and weeding) Personal Factors Other Personal Factors That May Effect Osteopenia Therapy/Recovery Anxiety controlled with medication PT-OP-C Subjective Start: 02/11/19 08:04 Freq: Status: Active Protocol: Document 02/14/19 09:45 LRN (Rec: 02/14/19 10:37 LRN [id number]) OP-PT Subjective Patient Comments Patient Comments Sore R knee since last time and doing exercises. States an area she put a bandaid to prevent K-tape from coming off caused skin abrasion. PT-OP-F Manual Assessment Start: 02/11/19 08:04 Freq: Status: Active Protocol: Document 02/11/19 09:50 LRN (Rec: 02/11/19 11:44 LRN [id number]) Manual Assessments Soft Tissue Assessment Soft Tissue Mobility Assessment Tender at R knee: medial tibial plateau, medial epicondyle and medial tibial plateau. She has general discomfort around the R patella, anterior and lateral knee. Joint Mobility Assessment Joint Mobility Assessment Held due to pain behaviour with palpation of soft tissue and guarded posturing. PT-OP-H Neuro Start: 02/11/19 08:04 Freq: Status: Active Protocol: Document 02/11/19 09:50 LRN (Rec: 02/11/19 11:44 LRN [id number]) Sensation Evaluation Gross Sensation Gross Sensation WNL Deep Tendon Reflex & Clonus Assessment Deep Tendon Reflex Bilateral Achilles Deep Tendon Reflex 1+ Diminished Bilateral Patellar Deep Tendon Reflex 3+ Normal But Brisk PT-OP-J Posture/Palpation/Skin Start: 02/11/19 08:04 Freq: Status: Active Protocol: Document 02/11/19 09:50 LRN (Rec: 02/11/19 11:44 LRN [id number]) Posture Evaluation Position Standing Evaluation View All positions Head/C-Spine Posture Forward Head L-Spine Posture Rotation Right Knee Posture (L) Genu Recurvatum,(R) Genu Recurvatum Ankle/Foot Posture (R) Forefoot Eversion Foot Arch (L) Medium Arch,(R) Medium Arch Comments Posture Comments Standing: Pt demonstrates moderate forward head posturing, increased lordosis, elevated R shoulder and scapula, C-curve of the spine with the apex on the right, level pelvis. PT-OP-K Range of Motion Start: 02/11/19 08:04 Freq: Status: Active Protocol: Document 02/14/19 09:45 LRN (Rec: 02/14/19 10:37 LRN [id number]) Knee Goniometric Range of Motion Knee Right Flexion Active (degrees) 128 Hyper-Extension Active 2 Left Flexion Active (degrees) 145 Hyper-Extension Active 2 Ankle and Foot Goniometric Range of Motion Ankle and Foot Right Active Testing Position Supine Inversion 60 Eversion 30 Left Active Testing Position Supine Inversion 45 Eversion 15 Ankle and Foot ROM Limitations Comments At rest (supine): Ankle is in IV: 35 deg's right, 25 deg's left. PT-OP-M Strength Start: 02/11/19 08:04 Freq: Status: Active Protocol: Document 02/11/19 09:50 LRN (Rec: 02/11/19 11:44 LRN [id number]) Hip Strength Hip Manual Muscle Testing Right Reason Not Measured WFL Left Reason Not Measured WFL Knee Strength Knee Manual Muscle Testing Right Flexion (S2) 4+ Good+ Extension (L3) 3 Fair Left Flexion (S2) 5 Normal Extension (L3) 5 Normal Ankle/Foot Strength Ankle and Foot Manual Muscle Testing Right Reason Not Measured WFL Left Reason Not Measured WFL PT-OP-Q Treatments Start: 02/11/19 08:04 Freq: Status: Active Protocol: Document 02/14/19 09:45 LRN (Rec: 02/14/19 10:37 LRN [id number]) Therapeutic Exercises Supine Exercises Ankle EV Supine Exercise Name Ankle EV stretch Side right Reps/Minutes 6' Comments Extra time taken to achieve tolerance to stretch. ROM taken Ankle DF Supine Exercise Name Ankle DF stretch Side bilateral Reps/Minutes 4 Comments R>L SLR Supine Exercise Name SLR 12 & 2 O'Clock Side right Reps/Minutes 8x 2 Comments Pt fatigued with 8 reps, extra time taken for training Quad sets Supine Exercise Name Quad set Side right Reps/Minutes 2 Manual Therapy Treatment Taping R medial knee Body Location R medial knee Treatment Focus Space correction Type of Tape Kinesio Tape Skin Inspection Good Comments Two I-strips crossed across medial knee joint with 25% stretch. Skin abrasion in area where pt placed bandaid. PT-OP-R Modalities Start: 02/11/19 08:04 Freq: Status: Active Protocol: Document 02/14/19 09:45 LRN (Rec: 02/14/19 10:37 LRN [id number]) Hot Pack/Cold Pack Treatment Cold Pack Location R knee Patient Position Hooklying Treatment Duration (minutes) 10 Comments Cryocuff Ultrasound Therapy Treatment R Knee Treatment Duration (minutes) 8 Patient Position Supine Coupling Medium Ultrasound Gel Applicator Size (cm2) 10 Mode Setting Pulsed Duty Cycle 50% Intensity Setting (w/cm2) 1 Comments 4' @ 1.0 W/Cm2 at R knee medial condyle 4' @ 1.6 W/Cm2 at R ankle Everter muscle belly location. PT-OP-T Assessment and Plan Start: 02/11/19 08:04 Freq: Status: Active Protocol: Document 02/14/19 09:45 LRN (Rec: 02/14/19 10:37 LRN [id number]) Physical Therapy Assessment Assessment Summary Assessment Pt has skin abrasion in area that pt used a bandaid at home to prevent K-tape from coming off. Pt is now aware to not use band aid for keeping tape on. Pt R knee is limited with flex, normal with extension. Her R ankle lacks EV; therefore causing discomfort at medial knee when Everted. Pt knees hyperextended with pain on R side with full extension. Pt is weak in Quads. Physical Therapy Plan Frequency and Duration Frequency of Treatment 2x/Week Duration of Treatment 8 weeks Plan of Care Start Date 02/11/19 Plan of Care End Date 04/08/19 Next Visit Focus/Plan Next Note Type Treatment Note Next Visit Plan Review HEP (SLR), recheck skin with K-tape. Assess SLS and response to US/K-tape. Start open chain knee strengthening and strengthening of ankle/ hips (with deep breathing). Modalities if needed (Laser, E -Stim), K-tape for space correction and/or medial joint stability. Progress HEP as appropriate.
--- NOTE | 2019-02-26 18:12 | PT.OTN ---
Current Diagnoses Muscle weakness (generalized) (02/26/19) Other tear of medial meniscus, current injury, right knee, initial encounter (02/26/19) Other reduced mobility (02/26/19) Physical Therapy Treatment Note PT-OP-A Visit Information Start: 02/11/19 08:04 Freq: Status: Active Protocol: Document 02/26/19 10:05 LRN (Rec: 02/26/19 10:52 LRN [id number]) Out-Patient Physical Therapy Visit Information Visit Information Visit Type Treatment Note Visit Start Time 10:05 Visit Stop Time 10:48 Total Visit Minutes 43 Visit Number 4 Number of PSYCHOLOGICAL EXAMINER Visits 0 Evaluation Information Evaluation Date 02/11/19 Precautions Precautions Osteopenia, hx of depression/ anxiety controlled by meds. Recent therapy for urinary incontinence (high tone). PT-OP-B Current Condition Start: 02/11/19 08:04 Freq: Status: Active Protocol: Document 02/11/19 09:50 LRN (Rec: 02/11/19 11:07 LRN [id number]) Current Condition History of Current Condition Onset Date 12/05/18. Current Complaints Discomfort in medial R knee, achy. Not able to stand long. History of Current Condition Was stepping down to get out of a latter day van and heard a pop from the R leg that she was stepping down onto. She had immediate pain and some swelling. A week later saw the orthopedic surgeon and was told no surgery needed. That week she had severe pain and was given a cortisone shot a week later that she feels did not help much, and was given a referral for PT. Daughter, who is a nurse, told her to take Tylenol (not IBP due to recent injection). Currently R knee pain is variable. Standing or sitting too long it is worse 4/10, at its best it is 1/10. Using Ice pack on the knee 2x/day. Prior Treatments and Tests X-ray: No fracture, mild joint degeneration. Future Testing and Treatments Planned None Treatment Goals Patient/Caregiver Goals Pt goal is to be healed in 2 months, but it has been 2 months. She is hoping to be healed after 2 months of therapy. Prior Functional Status Baseline Function- ADL's Independent Baseline Function- Mobility Independent Current Functional Impairments (Reported) Functional Limitations- ADL's Getting up/down from floor. Squatting. Pain with deep stair ambulation. Putting shoes on. Functional Limitations- Mobility/Gait Normal unless knee is hurting. Functional Limitations- Recreation/ Exercise walking & gardening ( Hobbies kneeling and weeding) Personal Factors Other Personal Factors That May Effect Osteopenia Therapy/Recovery Anxiety controlled with medication PT-OP-C Subjective Start: 02/11/19 08:04 Freq: Status: Active Protocol: Document 02/26/19 10:05 LRN (Rec: 02/26/19 10:52 LRN [id number]) OP-PT Subjective Patient Comments Patient Comments States yesterday was a good day without pain, today is a bad day, pain to start . PT-OP-F Manual Assessment Start: 02/11/19 08:04 Freq: Status: Active Protocol: Document 02/11/19 09:50 LRN (Rec: 02/11/19 11:44 LRN [id number]) Manual Assessments Soft Tissue Assessment Soft Tissue Mobility Assessment Tender at R knee: medial tibial plateau, medial epicondyle and medial tibial plateau. She has general discomfort around the R patella, anterior and lateral knee. Joint Mobility Assessment Joint Mobility Assessment Held due to pain behaviour with palpation of soft tissue and guarded posturing. PT-OP-H Neuro Start: 02/11/19 08:04 Freq: Status: Active Protocol: Document 02/11/19 09:50 LRN (Rec: 02/11/19 11:44 LRN [id number]) Sensation Evaluation Gross Sensation Gross Sensation WNL Deep Tendon Reflex & Clonus Assessment Deep Tendon Reflex Bilateral Achilles Deep Tendon Reflex 1+ Diminished Bilateral Patellar Deep Tendon Reflex 3+ Normal But Brisk PT-OP-J Posture/Palpation/Skin Start: 02/11/19 08:04 Freq: Status: Active Protocol: Document 02/11/19 09:50 LRN (Rec: 02/11/19 11:44 LRN [id number]) Posture Evaluation Position Standing Evaluation View All positions Head/C-Spine Posture Forward Head L-Spine Posture Rotation Right Knee Posture (L) Genu Recurvatum,(R) Genu Recurvatum Ankle/Foot Posture (R) Forefoot Eversion Foot Arch (L) Medium Arch,(R) Medium Arch Comments Posture Comments Standing: Pt demonstrates moderate forward head posturing, increased lordosis, elevated R shoulder and scapula, C-curve of the spine with the apex on the right, level pelvis. PT-OP-K Range of Motion Start: 02/11/19 08:04 Freq: Status: Active Protocol: Document 02/14/19 09:45 LRN (Rec: 02/14/19 10:37 LRN [id number]) Knee Goniometric Range of Motion Knee Right Flexion Active (degrees) 128 Hyper-Extension Active 2 Left Flexion Active (degrees) 145 Hyper-Extension Active 2 Ankle and Foot Goniometric Range of Motion Ankle and Foot Right Active Testing Position Supine Inversion 60 Eversion 30 Left Active Testing Position Supine Inversion 45 Eversion 15 Ankle and Foot ROM Limitations Comments At rest (supine): Ankle is in IV: 35 deg's right, 25 deg's left. PT-OP-M Strength Start: 02/11/19 08:04 Freq: Status: Active Protocol: Document 02/11/19 09:50 LRN (Rec: 02/11/19 11:44 LRN [id number]) Hip Strength Hip Manual Muscle Testing Right Reason Not Measured WFL Left Reason Not Measured WFL Knee Strength Knee Manual Muscle Testing Right Flexion (S2) 4+ Good+ Extension (L3) 3 Fair Left Flexion (S2) 5 Normal Extension (L3) 5 Normal Ankle/Foot Strength Ankle and Foot Manual Muscle Testing Right Reason Not Measured WFL Left Reason Not Measured WFL PT-OP-Q Treatments Start: 02/11/19 08:04 Freq: Status: Active Protocol: Document 02/26/19 10:05 LRN (Rec: 02/26/19 10:52 LRN [id number]) Cardio Equipment Bicycle (Upright) Duration (Minutes) 8 Resistance 2 Seat Position 3 Other Pain 2-3/10, Speed: 55-58 rpm. Core stab training to start. Therapeutic Exercises Supine Exercises Hamstring/Neural stretch Supine Exercise Name LE neural/hamstring stretch Side right Reps/Minutes 10 + ankle pump x 3 Comments Extra time taken for review SLR Supine Exercise Name SLR 10, 12 & 2 O'Clock Side right Reps/Minutes 8x Comments Pt fatigued with 8 reps, extra time taken for training Quad sets Supine Exercise Name Quad set Side right Reps/Minutes 2 Comments For knee ext stretch Sidelying Exercises Hip AD Sidelying Exercise Name Hip AD Side right Reps/Minutes 10x 3 Standing Exercises Hip AD Standing Exercise Name Hip AD Side right Resistance Lev 2, Lev 1 Reps/Minutes 5x Comments Pt not able to tolerate Heel raises Standing Exercise Name Ankle PF Side bilateral Reps/Minutes Review Toe raises Standing Exercise Name Ankle DF Side bilateral Reps/Minutes Review Manual Therapy Treatment Taping R medial knee Body Location R medial knee Treatment Focus Space correction Type of Tape Kinesio Tape Skin Inspection Good Comments Two I-strips crossed across medial knee joint with 25% stretch. No skin irritation noted prior to taping. Self-Care/Home Management Treatment Education Patient Education Home Exercise Program Activities Self-Care/Home Management Activities Issued Lev 1 T-Band for HEP: standing hip AD. Reviewed HEP : Ankle DF/PF strengthening and Ankle DF stretch. PT-OP-R Modalities Start: 02/11/19 08:04 Freq: Status: Active Protocol: Document 02/26/19 10:05 LRN (Rec: 02/26/19 10:52 LRN [id number]) Ultrasound Therapy Treatment R Knee Treatment Duration (minutes) 8 Patient Position Supine Coupling Medium Ultrasound Gel Applicator Size (cm2) 10 Mode Setting Pulsed Duty Cycle 50% Intensity Setting (w/cm2) 1 Comments R medial knee PT-OP-T Assessment and Plan Start: 02/11/19 08:04 Freq: Status: Active Protocol: Document 02/26/19 10:05 LRN (Rec: 02/26/19 10:52 LRN [id number]) Physical Therapy Assessment Assessment Summary Assessment Pt needed review of ankle and hip AD ex. Pt having some good days without pain; therefore R knee stability is improving. No skin irritation noted due to K-tape. Physical Therapy Plan Frequency and Duration Frequency of Treatment 2x/Week Duration of Treatment 8 weeks Plan of Care Start Date 02/11/19 Plan of Care End Date 04/08/19 Next Visit Focus/Plan Next Note Type Treatment Note Next Visit Plan Review standing hip AD and ankle ex's. Progress open chain knee strengthening and strengthening of ankle/hips ( with deep breathing). Modalities if needed (Laser, E -Stim), K-tape for space correction and/or medial joint stability. Progress HEP as appropriate.
--- NOTE | 2019-02-28 12:07 | PT.OTN ---
Current Diagnoses Muscle weakness (generalized) (02/28/19) Other tear of medial meniscus, current injury, right knee, initial encounter (02/28/19) Other reduced mobility (02/28/19) Physical Therapy Treatment Note PT-OP-A Visit Information Start: 02/11/19 08:04 Freq: Status: Active Protocol: Document 02/28/19 09:50 LRN (Rec: 02/28/19 10:36 LRN [id number]) Out-Patient Physical Therapy Visit Information Visit Information Visit Type Treatment Note Visit Start Time 09:50 Visit Stop Time 10:45 Total Visit Minutes 55 Visit Number 5 Number of SQL SERVER BI DEVELOPER Visits 0 Evaluation Information Evaluation Date 02/11/19 Precautions Precautions Osteopenia, hx of depression/ anxiety controlled by meds. Recent therapy for urinary incontinence (high tone). PT-OP-B Current Condition Start: 02/11/19 08:04 Freq: Status: Active Protocol: Document 02/11/19 09:50 LRN (Rec: 02/11/19 11:07 LRN [id number]) Current Condition History of Current Condition Onset Date 12/05/18. Current Complaints Discomfort in medial R knee, achy. Not able to stand long. 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 She had immediate pain and some swelling. A week later saw the orthopedic surgeon and was told no surgery needed. That week she had severe pain and was given a cortisone shot a week later that she feels did not help much, and was given a referral for PT. Daughter, who is a nurse, told her to take Tylenol (not IBP due to recent injection). Currently R knee pain is variable. Standing or sitting too long it is worse 4/10, at its best it is 1/10. Using Ice pack on the knee 2x/day. Prior Treatments and Tests X-ray: No fracture, mild joint degeneration. Future Testing and Treatments Planned None Treatment Goals Patient/Caregiver Goals Pt goal is to be healed in 2 months, but it has been 2 months. She is hoping to be healed after 2 months of therapy. Prior Functional Status Baseline Function- ADL's Independent Baseline Function- Mobility Independent Current Functional Impairments (Reported) Functional Limitations- ADL's Getting up/down from floor. Squatting. Pain with deep stair ambulation. Putting shoes on. Functional Limitations- Mobility/Gait Normal unless knee is hurting. Functional Limitations- Recreation/ Exercise walking & gardening ( Hobbies kneeling and weeding) Personal Factors Other Personal Factors That May Effect Osteopenia Therapy/Recovery Anxiety controlled with medication PT-OP-C Subjective Start: 02/11/19 08:04 Freq: Status: Active Protocol: Document 02/28/19 09:50 LRN (Rec: 02/28/19 10:36 LRN [id number]) OP-PT Subjective Patient Comments Patient Comments R knee tight with bend. No pain. hasn't been as bad this week, pain is rated 2-3/ 10. PT-OP-F Manual Assessment Start: 02/11/19 08:04 Freq: Status: Active Protocol: Document 02/11/19 09:50 LRN (Rec: 02/11/19 11:44 LRN [id number]) Manual Assessments Soft Tissue Assessment Soft Tissue Mobility Assessment Tender at R knee: medial tibial plateau, medial epicondyle and medial tibial plateau. She has general discomfort around the R patella, anterior and lateral knee. Joint Mobility Assessment Joint Mobility Assessment Held due to pain behaviour with palpation of soft tissue and guarded posturing. PT-OP-H Neuro Start: 02/11/19 08:04 Freq: Status: Active Protocol: Document 02/11/19 09:50 LRN (Rec: 02/11/19 11:44 LRN [id number]) Sensation Evaluation Gross Sensation Gross Sensation WNL Deep Tendon Reflex & Clonus Assessment Deep Tendon Reflex Bilateral Achilles Deep Tendon Reflex 1+ Diminished Bilateral Patellar Deep Tendon Reflex 3+ Normal But Brisk PT-OP-J Posture/Palpation/Skin Start: 02/11/19 08:04 Freq: Status: Active Protocol: Document 02/11/19 09:50 LRN (Rec: 02/11/19 11:44 LRN [id number]) Posture Evaluation Position Standing Evaluation View All positions Head/C-Spine Posture Forward Head L-Spine Posture Rotation Right Knee Posture (L) Genu Recurvatum,(R) Genu Recurvatum Ankle/Foot Posture (R) Forefoot Eversion Foot Arch (L) Medium Arch,(R) Medium Arch Comments Posture Comments Standing: Pt demonstrates moderate forward head posturing, increased lordosis, elevated R shoulder and scapula, C-curve of the spine with the apex on the right, level pelvis. PT-OP-K Range of Motion Start: 02/11/19 08:04 Freq: Status: Active Protocol: Document 02/14/19 09:45 LRN (Rec: 02/14/19 10:37 LRN [id number]) Knee Goniometric Range of Motion Knee Right Flexion Active (degrees) 128 Hyper-Extension Active 2 Left Flexion Active (degrees) 145 Hyper-Extension Active 2 Ankle and Foot Goniometric Range of Motion Ankle and Foot Right Active Testing Position Supine Inversion 60 Eversion 30 Left Active Testing Position Supine Inversion 45 Eversion 15 Ankle and Foot ROM Limitations Comments At rest (supine): Ankle is in IV: 35 deg's right, 25 deg's left. PT-OP-M Strength Start: 02/11/19 08:04 Freq: Status: Active Protocol: Document 02/11/19 09:50 LRN (Rec: 02/11/19 11:44 LRN [id number]) Hip Strength Hip Manual Muscle Testing Right Reason Not Measured WFL Left Reason Not Measured WFL Knee Strength Knee Manual Muscle Testing Right Flexion (S2) 4+ Good+ Extension (L3) 3 Fair Left Flexion (S2) 5 Normal Extension (L3) 5 Normal Ankle/Foot Strength Ankle and Foot Manual Muscle Testing Right Reason Not Measured WFL Left Reason Not Measured WFL PT-OP-Q Treatments Start: 02/11/19 08:04 Freq: Status: Active Protocol: Document 02/28/19 09:50 LRN (Rec: 02/28/19 10:36 LRN [id number]) Cardio Equipment Bicycle (Upright) Duration (Minutes) 10 Resistance 2 Seat Position 3 Other Core stab training. Therapeutic Exercises Supine Exercises Iliopsoas stretch Supine Exercise Name Ilipsoas stretch, f/b 10 active stretches Side bilateral Hamstring/Neural stretch Supine Exercise Name LE neural/hamstring stretch Side bilateral Reps/Minutes 10 + ankle pump x 3 Comments Extra time taken for review, added L side SLR Supine Exercise Name SLR 10, 12 & 2 O'Clock Side right Equipment Used 2# Reps/Minutes 8x Quad sets Supine Exercise Name Quad set Side right Reps/Minutes 2x Comments For knee ext stretch, Sidelying Exercises Hip AD Sidelying Exercise Name Hip AD Side right Equipment Used 1# Reps/Minutes 8x 3 Sitting Exercises Knee ext Sitting Exercise Name Open chain knee ext Side right Resistance 2# Reps/Minutes 10x 3 Standing Exercises Ilipsoas stretch Standing Exercise Name Iliopsoas stretch on steps Side right Reps/Minutes 60 x 1 Hip AD Standing Exercise Name Hip AD Side right Resistance Lev 2, Lev 1 Reps/Minutes 5x Comments Pt not able to tolerate Manual Therapy Treatment Taping R medial knee Body Location R medial knee Treatment Focus Space correction Type of Tape Kinesio Tape Skin Inspection Good Comments No skin irritation prior to taping. Two I-strips crossed across medial knee joint for space correction. One I-strip across medial inferior patella fat pad for space correction Self-Care/Home Management Treatment Education Patient Education Home Exercise Program Activities Self-Care/Home Management Activities Issued & reviewed HEP: Iliopsoas stretch standing & supine. PT-OP-R Modalities Start: 02/11/19 08:04 Freq: Status: Active Protocol: Document 02/28/19 09:50 LRN (Rec: 02/28/19 10:36 LRN [id number]) Hot Pack/Cold Pack Treatment Cold Pack Location R knee Patient Position Hooklying Treatment Duration (minutes) 10 Ultrasound Therapy Treatment R Knee Treatment Duration (minutes) 8 Patient Position Supine Coupling Medium Ultrasound Gel Applicator Size (cm2) 10 Mode Setting Pulsed Duty Cycle 50% Intensity Setting (w/cm2) 1 Comments R medial knee PT-OP-T Assessment and Plan Start: 02/11/19 08:04 Freq: Status: Active Protocol: Document 02/28/19 09:50 LRN (Rec: 02/28/19 10:36 LRN [id number]) Physical Therapy Assessment Assessment Summary Assessment Pt RLE hamstring/neural mobility appears better than LLE; therefore pt now to do stretch bilaterally. Increase in exercise and addition of Iliopsoas stretch limited time to review standing hip and ankle ex's. Pt medial knee appears to have less edema, but mildly greater in the medial fat pad region. Pt may be having occasional popping a the R knee due to instability; therefore K-tape for stability may be needed next visit. Physical Therapy Plan Frequency and Duration Frequency of Treatment 2x/Week Duration of Treatment 8 weeks Plan of Care Start Date 02/11/19 Plan of Care End Date 04/08/19 Next Visit Focus/Plan Next Note Type Treatment Note Next Visit Plan Review standing hip AD and ankle ex's. Progress open chain knee strengthening and strengthening of ankle/hips ( with deep breathing). Modalities if needed (Laser, E -Stim), K-tape for space correction and/or medial joint stability. Progress HEP as appropriate.
--- NOTE | 2019-03-04 11:14 | PT.OTN ---
Current Diagnoses Muscle weakness (generalized) (03/04/19) Other tear of medial meniscus, current injury, right knee, initial encounter (03/04/19) Other reduced mobility (03/04/19) Physical Therapy Treatment Note PT-OP-A Visit Information Start: 02/11/19 08:04 Freq: Status: Active Protocol: Document 03/04/19 09:05 LRN (Rec: 03/04/19 09:50 LRN [id number]) Out-Patient Physical Therapy Visit Information Visit Information Visit Type Treatment Note Visit Start Time 09:05 Visit Stop Time 09:47 Total Visit Minutes 42 Visit Number 6 Number of [employer] Visits 0 Evaluation Information Evaluation Date 02/11/19 Precautions Precautions Osteopenia, hx of depression/ anxiety controlled by meds. Recent therapy for urinary incontinence (high tone). PT-OP-B Current Condition Start: 02/11/19 08:04 Freq: Status: Active Protocol: Document 02/11/19 09:50 LRN (Rec: 02/11/19 11:07 LRN [id number]) Current Condition History of Current Condition Onset Date 12/05/18. Current Complaints Discomfort in medial R knee, achy. Not able to stand long. History of Current Condition Was stepping down to get out of a hindu van and heard a pop from the R leg that she was stepping down onto. She had immediate pain and some swelling. A week later saw the orthopedic surgeon and was told no surgery needed. That week she had severe pain and was given a cortisone shot a week later that she feels did not help much, and was given a referral for PT. Daughter, who is a nurse, told her to take Tylenol (not IBP due to recent injection). Currently R knee pain is variable. Standing or sitting too long it is worse 4/10, at its best it is 1/10. Using Ice pack on the knee 2x/day. Prior Treatments and Tests X-ray: No fracture, mild joint degeneration. Future Testing and Treatments Planned None Treatment Goals Patient/Caregiver Goals Pt goal is to be healed in 2 months, but it has been 2 months. She is hoping to be healed after 2 months of therapy. Prior Functional Status Baseline Function- ADL's Independent Baseline Function- Mobility Independent Current Functional Impairments (Reported) Functional Limitations- ADL's Getting up/down from floor. Squatting. Pain with deep stair ambulation. Putting shoes on. Functional Limitations- Mobility/Gait Normal unless knee is hurting. Functional Limitations- Recreation/ Exercise walking & gardening ( Hobbies kneeling and weeding) Personal Factors Other Personal Factors That May Effect Osteopenia Therapy/Recovery Anxiety controlled with medication PT-OP-C Subjective Start: 02/11/19 08:04 Freq: Status: Active Protocol: Document 03/04/19 09:05 LRN (Rec: 03/04/19 09:50 LRN [id number]) OP-PT Subjective Patient Comments Patient Comments States pain level is better at 2-3/10., usually 2/10 or less . Uses cane when out and about. PT-OP-F Manual Assessment Start: 02/11/19 08:04 Freq: Status: Active Protocol: Document 02/11/19 09:50 LRN (Rec: 02/11/19 11:44 LRN [id number]) Manual Assessments Soft Tissue Assessment Soft Tissue Mobility Assessment Tender at R knee: medial tibial plateau, medial epicondyle and medial tibial plateau. She has general discomfort around the R patella, anterior and lateral knee. Joint Mobility Assessment Joint Mobility Assessment Held due to pain behaviour with palpation of soft tissue and guarded posturing. PT-OP-H Neuro Start: 02/11/19 08:04 Freq: Status: Active Protocol: Document 02/11/19 09:50 LRN (Rec: 02/11/19 11:44 LRN [id number]) Sensation Evaluation Gross Sensation Gross Sensation WNL Deep Tendon Reflex & Clonus Assessment Deep Tendon Reflex Bilateral Achilles Deep Tendon Reflex 1+ Diminished Bilateral Patellar Deep Tendon Reflex 3+ Normal But Brisk PT-OP-J Posture/Palpation/Skin Start: 02/11/19 08:04 Freq: Status: Active Protocol: Document 02/11/19 09:50 LRN (Rec: 02/11/19 11:44 LRN [id number]) Posture Evaluation Position Standing Evaluation View All positions Head/C-Spine Posture Forward Head L-Spine Posture Rotation Right Knee Posture (L) Genu Recurvatum,(R) Genu Recurvatum Ankle/Foot Posture (R) Forefoot Eversion Foot Arch (L) Medium Arch,(R) Medium Arch Comments Posture Comments Standing: Pt demonstrates moderate forward head posturing, increased lordosis, elevated R shoulder and scapula, C-curve of the spine with the apex on the right, level pelvis. PT-OP-K Range of Motion Start: 02/11/19 08:04 Freq: Status: Active Protocol: Document 02/14/19 09:45 LRN (Rec: 02/14/19 10:37 LRN [id number]) Knee Goniometric Range of Motion Knee Right Flexion Active (degrees) 128 Hyper-Extension Active 2 Left Flexion Active (degrees) 145 Hyper-Extension Active 2 Ankle and Foot Goniometric Range of Motion Ankle and Foot Right Active Testing Position Supine Inversion 60 Eversion 30 Left Active Testing Position Supine Inversion 45 Eversion 15 Ankle and Foot ROM Limitations Comments At rest (supine): Ankle is in IV: 35 deg's right, 25 deg's left. PT-OP-M Strength Start: 02/11/19 08:04 Freq: Status: Active Protocol: Document 02/11/19 09:50 LRN (Rec: 02/11/19 11:44 LRN [id number]) Hip Strength Hip Manual Muscle Testing Right Reason Not Measured WFL Left Reason Not Measured WFL Knee Strength Knee Manual Muscle Testing Right Flexion (S2) 4+ Good+ Extension (L3) 3 Fair Left Flexion (S2) 5 Normal Extension (L3) 5 Normal Ankle/Foot Strength Ankle and Foot Manual Muscle Testing Right Reason Not Measured WFL Left Reason Not Measured WFL PT-OP-Q Treatments Start: 02/11/19 08:04 Freq: Status: Active Protocol: Document 03/04/19 09:05 LRN (Rec: 03/04/19 09:50 LRN [id number]) Gym Equipment Cable Column (Body Solid) Leg Curl Details Seat 5, Wheel 14 Resistance 20 Reps/Time 15x to fatigue x 2, 4 reps Leg Extension Details Seat 5, Wheel 2 Resistance 10 Reps/Time 14x/30 sec's x 2 Therapeutic Exercises Supine Exercises Happy Baby Pose Supine Exercise Name Happy Baby Pose Reps/Minutes 2 Comments Extra time for training Hamstring/Neural stretch Supine Exercise Name LE neural/hamstring stretch Side bilateral Reps/Minutes 10 + ankle pump x 3 Comments Extra time taken for review, added L side Standing Exercises Hip AD Standing Exercise Name Hip AD Side right Resistance Lev 2 Reps/Minutes 10x Comments Pt not able to tolerate Heel raises Standing Exercise Name Ankle PF Side bilateral Reps/Minutes 3' Comments Foot in neutral and AB Toe raises Standing Exercise Name Ankle DF stretch f/b active ankle DF Side bilateral Reps/Minutes 4' Comments Training needed, added Toe raises w/foot neutral & AB. PT-OP-R Modalities Start: 02/11/19 08:04 Freq: Status: Active Protocol: Document 03/04/19 09:05 LRN (Rec: 03/04/19 09:50 LRN [id number]) Ultrasound Therapy Treatment R Knee Treatment Duration (minutes) 8 Patient Position Supine Coupling Medium Ultrasound Gel Applicator Size (cm2) 10 Mode Setting Pulsed Duty Cycle 50% Intensity Setting (w/cm2) 1 Comments R medial knee PT-OP-T Assessment and Plan Start: 02/11/19 08:04 Freq: Status: Active Protocol: Document 03/04/19 09:05 LRN (Rec: 03/04/19 09:50 LRN [id number]) Physical Therapy Assessment Assessment Summary Assessment Pt strength improving, mild swelling present in R medial knee that decreases after US. Fair recall of hip AD/ankle ex. Held K-tape due to dry and flaking skin at medial knee. Pt to provide skin care until next visit. Physical Therapy Plan Frequency and Duration Frequency of Treatment 2x/Week Duration of Treatment 8 weeks Plan of Care Start Date 02/11/19 Plan of Care End Date 04/08/19 Next Visit Focus/Plan Next Note Type Treatment Note Next Visit Plan Assess R medial knee skin for K-tape. Review again standing hip AD and ankle ex's. Progress open chain knee endurance strengthening and strengthening of ankle/hips ( with deep breathing), K-tape for space correction and/or medial joint stability. Progress HEP as appropriate.
--- NOTE | 2019-03-07 12:04 | PT.OTN ---
Current Diagnoses Muscle weakness (generalized) (03/07/19) Other tear of medial meniscus, current injury, right knee, initial encounter (03/07/19) Other reduced mobility (03/07/19) Physical Therapy Treatment Note PT-OP-A Visit Information Start: 02/11/19 08:04 Freq: Status: Active Protocol: Document 03/07/19 09:01 LRN (Rec: 03/07/19 09:48 LRN [id number]) Out-Patient Physical Therapy Visit Information Visit Information Visit Type Treatment Note Visit Start Time 09:01 Visit Stop Time 09:47 Total Visit Minutes 46 Visit Number 7 Number of RETURNER Visits 0 Evaluation Information Evaluation Date 02/11/19 Precautions Precautions Osteopenia, hx of depression/ anxiety controlled by meds. Recent therapy for urinary incontinence (high tone). PT-OP-B Current Condition Start: 02/11/19 08:04 Freq: Status: Active Protocol: Document 02/11/19 09:50 LRN (Rec: 02/11/19 11:07 LRN [id number]) Current Condition History of Current Condition Onset Date 12/05/18. Current Complaints Discomfort in medial R knee, achy. Not able to stand long. History of Current Condition Was stepping down to get out of a oriental orthodox van and heard a pop from the R leg that she was stepping down onto. She had immediate pain and some swelling. A week later saw the orthopedic surgeon and was told no surgery needed. That week she had severe pain and was given a cortisone shot a week later that she feels did not help much, and was given a referral for PT. Daughter, who is a nurse, told her to take Tylenol (not IBP due to recent injection). Currently R knee pain is variable. Standing or sitting too long it is worse 4/10, at its best it is 1/10. Using Ice pack on the knee 2x/day. Prior Treatments and Tests X-ray: No fracture, mild joint degeneration. Future Testing and Treatments Planned None Treatment Goals Patient/Caregiver Goals Pt goal is to be healed in 2 months, but it has been 2 months. She is hoping to be healed after 2 months of therapy. Prior Functional Status Baseline Function- ADL's Independent Baseline Function- Mobility Independent Current Functional Impairments (Reported) Functional Limitations- ADL's Getting up/down from floor. Squatting. Pain with deep stair ambulation. Putting shoes on. Functional Limitations- Mobility/Gait Normal unless knee is hurting. Functional Limitations- Recreation/ Exercise walking & gardening ( Hobbies kneeling and weeding) Personal Factors Other Personal Factors That May Effect Osteopenia Therapy/Recovery Anxiety controlled with medication PT-OP-C Subjective Start: 02/11/19 08:04 Freq: Status: Active Protocol: Document 03/07/19 09:01 LRN (Rec: 03/07/19 09:48 LRN [id number]) OP-PT Subjective Patient Comments Patient Comments States had a bad day yesterday . Pain 1-2/10 daily that is an ache. No longer the severe 4-5/10 pain. PT-OP-F Manual Assessment Start: 02/11/19 08:04 Freq: Status: Active Protocol: Document 02/11/19 09:50 LRN (Rec: 02/11/19 11:44 LRN [id number]) Manual Assessments Soft Tissue Assessment Soft Tissue Mobility Assessment Tender at R knee: medial tibial plateau, medial epicondyle and medial tibial plateau. She has general discomfort around the R patella, anterior and lateral knee. Joint Mobility Assessment Joint Mobility Assessment Held due to pain behaviour with palpation of soft tissue and guarded posturing. PT-OP-H Neuro Start: 02/11/19 08:04 Freq: Status: Active Protocol: Document 02/11/19 09:50 LRN (Rec: 02/11/19 11:44 LRN [id number]) Sensation Evaluation Gross Sensation Gross Sensation WNL Deep Tendon Reflex & Clonus Assessment Deep Tendon Reflex Bilateral Achilles Deep Tendon Reflex 1+ Diminished Bilateral Patellar Deep Tendon Reflex 3+ Normal But Brisk PT-OP-J Posture/Palpation/Skin Start: 02/11/19 08:04 Freq: Status: Active Protocol: Document 02/11/19 09:50 LRN (Rec: 02/11/19 11:44 LRN [id number]) Posture Evaluation Position Standing Evaluation View All positions Head/C-Spine Posture Forward Head L-Spine Posture Rotation Right Knee Posture (L) Genu Recurvatum,(R) Genu Recurvatum Ankle/Foot Posture (R) Forefoot Eversion Foot Arch (L) Medium Arch,(R) Medium Arch Comments Posture Comments Standing: Pt demonstrates moderate forward head posturing, increased lordosis, elevated R shoulder and scapula, C-curve of the spine with the apex on the right, level pelvis. PT-OP-K Range of Motion Start: 02/11/19 08:04 Freq: Status: Active Protocol: Document 02/14/19 09:45 LRN (Rec: 02/14/19 10:37 LRN [id number]) Knee Goniometric Range of Motion Knee Right Flexion Active (degrees) 128 Hyper-Extension Active 2 Left Flexion Active (degrees) 145 Hyper-Extension Active 2 Ankle and Foot Goniometric Range of Motion Ankle and Foot Right Active Testing Position Supine Inversion 60 Eversion 30 Left Active Testing Position Supine Inversion 45 Eversion 15 Ankle and Foot ROM Limitations Comments At rest (supine): Ankle is in IV: 35 deg's right, 25 deg's left. PT-OP-M Strength Start: 02/11/19 08:04 Freq: Status: Active Protocol: Document 02/11/19 09:50 LRN (Rec: 02/11/19 11:44 LRN [id number]) Hip Strength Hip Manual Muscle Testing Right Reason Not Measured WFL Left Reason Not Measured WFL Knee Strength Knee Manual Muscle Testing Right Flexion (S2) 4+ Good+ Extension (L3) 3 Fair Left Flexion (S2) 5 Normal Extension (L3) 5 Normal Ankle/Foot Strength Ankle and Foot Manual Muscle Testing Right Reason Not Measured WFL Left Reason Not Measured WFL PT-OP-Q Treatments Start: 02/11/19 08:04 Freq: Status: Active Protocol: Document 03/07/19 09:01 LRN (Rec: 03/07/19 09:48 LRN [id number]) Cardio Equipment Bicycle (Upright) Duration (Minutes) 10 Resistance 2 Seat Position 3 Other Indep after therapy. Core stab training. Gym Equipment Cable Column (Body Solid) Leg Curl Details Seat 5, Wheel 14 Resistance 20 Reps/Time 10x to fatigue x 3 Leg Extension Details Seat 5, Wheel 2 Resistance 10 Reps/Time 10 x 3 Therapeutic Exercises Sitting Exercises Ankle EV Sitting Exercise Name Ankle EV Side right Resistance Lev 1 T-Band Reps/Minutes 15x Ankle IV Sitting Exercise Name Ankle IV Side right Resistance Lev 1 T-Band Reps/Minutes 15x Standing Exercises Hip AB Standing Exercise Name Hip AB Side right Resistance Lev 2 T-Band Hip AD Standing Exercise Name Hip AD Side right Resistance Lev 2 Reps/Minutes 10x Comments Pt not able to tolerate Heel raises Standing Exercise Name Ankle PF Side bilateral Reps/Minutes 3' Comments Foot in neutral and AB Toe raises Standing Exercise Name Ankle DF stretch f/b active ankle DF Side bilateral Reps/Minutes 4' Comments Training needed, added Toe raises w/foot neutral & AB. Manual Therapy Treatment Taping R medial knee Body Location R medial knee Treatment Focus Space correction Type of Tape Kinesio Tape Skin Inspection Good Comments No skin irritation prior to taping. One I-strip across medial knee joint for space correction. Held the I-strip across medial inferior patella fat pad for space correction. Self-Care/Home Management Treatment Education Patient Education Home Exercise Program Activities Self-Care/Home Management Activities I/S, reviewed, issued HEP: Ankle IV/EV strengthening with T-Band, PT-OP-R Modalities Start: 02/11/19 08:04 Freq: Status: Active Protocol: Document 03/07/19 09:01 LRN (Rec: 03/07/19 09:48 LRN [id number]) Ultrasound Therapy Treatment R Knee Treatment Duration (minutes) 8 Patient Position Supine Coupling Medium Ultrasound Gel Applicator Size (cm2) 10 Mode Setting Pulsed Duty Cycle 50% Intensity Setting (w/cm2) 1 Comments R medial knee PT-OP-T Assessment and Plan Start: 02/11/19 08:04 Freq: Status: Active Protocol: Document 03/07/19 09:01 LRN (Rec: 03/07/19 09:48 LRN [id number]) Physical Therapy Assessment Goals Six Impairment R medial knee pain rated 1-4/ 10 intermittently Short Term Goal (STG) Decrease R medial knee pain to 1-2/10, intermittently. STG Duration 03/11/19 (03/07/19: GOAL MET per subjective report) Fpc Goal (LTG) Pt will be able to squat with R knee pain no greater than 1/ 10 and intermittent knee pain no greater than 1/10. LTG Duration 04/08/19 (03/07/19: intermittent pain 1-2/10) Five Impairment Pt not able to perform deep breathing properly with ex Short Term Goal (STG) Pt will be able to demonstrate proper deep breathing with ex STG Duration 04/08/19 One Impairment Lacks appropriate self care HEP Polarity Tester Goal (LTG) Pt will be independent with a self care HEP. LTG Duration 04/08/19 (03/07/19: Progressed ) Progress Towards Goals Progress Comments Goal 1: Progressed HEP. Goal 5: Not assessed. Goal 6: R knee pain 1-2/10. Squatting not assessed. Goal 7: STG: MET. R knee pain is intermittent at 1-2/10 . LTG: Squatting not assessed. Pain is intermittent at 1-2/ 10. Assessment Summary Assessment Improved recall of hip AD/ ankle ex strengthening. Added hip AB and ankle IV/EV strengthening, and found pt to be very weak with hip AB. Pt 's R LE is generally swollen. She is improved with pain less at 1-2/10 and sometimes having no pain. Pt progressing but needs review with exercises. Physical Therapy Plan Frequency and Duration Frequency of Treatment 2x/Week Duration of Treatment 8 weeks Plan of Care Start Date 02/11/19 Plan of Care End Date 04/08/19 Next Visit Focus/Plan Next Note Type Treatment Note Next Visit Plan Monitor R medial knee skin for K-tape. Assess pt's tolerance to squatting, & pt's ability for deep breathing with exercises. Progress open chain knee endurance strengthening and strengthening of ankle/hips ( with deep breathing), K-tape for space correction and/or medial joint stability. Progress HEP as appropriate.
--- NOTE | 2019-03-11 17:06 | PT.OTN ---
Current Diagnoses Muscle weakness (generalized) (03/11/19) Other tear of medial meniscus, current injury, right knee, initial encounter (03/11/19) Other reduced mobility (03/11/19) Physical Therapy Treatment Note PT-OP-A Visit Information Start: 02/11/19 08:04 Freq: Status: Active Protocol: Document 03/11/19 09:06 LRN (Rec: 03/11/19 09:49 LRN [id number]) Out-Patient Physical Therapy Visit Information Visit Information Visit Type Treatment Note Visit Start Time 09:06 Visit Stop Time 09:47 Total Visit Minutes 41 Visit Number 8 Number of CANDY CUTTER HAND Visits 0 Evaluation Information Evaluation Date 02/11/19 Precautions Precautions Osteopenia, hx of depression/ anxiety controlled by meds. Recent therapy for urinary incontinence (high tone). PT-OP-B Current Condition Start: 02/11/19 08:04 Freq: Status: Active Protocol: Document 02/11/19 09:50 LRN (Rec: 02/11/19 11:07 LRN [id number]) Current Condition History of Current Condition Onset Date 12/05/18. Current Complaints Discomfort in medial R knee, achy. Not able to stand long. History of Current Condition Was stepping down to get out of a evangelical van and heard a pop from the R leg that she was stepping down onto. She had immediate pain and some swelling. A week later saw the orthopedic surgeon and was told no surgery needed. That week she had severe pain and was given a cortisone shot a week later that she feels did not help much, and was given a referral for PT. Daughter, who is a nurse, told her to take Tylenol (not IBP due to recent injection). Currently R knee pain is variable. Standing or sitting too long it is worse 4/10, at its best it is 1/10. Using Ice pack on the knee 2x/day. Prior Treatments and Tests X-ray: No fracture, mild joint degeneration. Future Testing and Treatments Planned None Treatment Goals Patient/Caregiver Goals Pt goal is to be healed in 2 months, but it has been 2 months. She is hoping to be healed after 2 months of therapy. Prior Functional Status Baseline Function- ADL's Independent Baseline Function- Mobility Independent Current Functional Impairments (Reported) Functional Limitations- ADL's Getting up/down from floor. Squatting. Pain with deep stair ambulation. Putting shoes on. Functional Limitations- Mobility/Gait Normal unless knee is hurting. Functional Limitations- Recreation/ Exercise walking & gardening ( Hobbies kneeling and weeding) Personal Factors Other Personal Factors That May Effect Osteopenia Therapy/Recovery Anxiety controlled with medication PT-OP-C Subjective Start: 02/11/19 08:04 Freq: Status: Active Protocol: Document 03/11/19 09:06 LRN (Rec: 03/11/19 09:49 LRN [id number]) OP-PT Subjective Patient Comments Patient Comments States she has been good the past few days. PT-OP-F Manual Assessment Start: 02/11/19 08:04 Freq: Status: Active Protocol: Document 02/11/19 09:50 LRN (Rec: 02/11/19 11:44 LRN [id number]) Manual Assessments Soft Tissue Assessment Soft Tissue Mobility Assessment Tender at R knee: medial tibial plateau, medial epicondyle and medial tibial plateau. She has general discomfort around the R patella, anterior and lateral knee. Joint Mobility Assessment Joint Mobility Assessment Held due to pain behaviour with palpation of soft tissue and guarded posturing. PT-OP-H Neuro Start: 02/11/19 08:04 Freq: Status: Active Protocol: Document 02/11/19 09:50 LRN (Rec: 02/11/19 11:44 LRN [id number]) Sensation Evaluation Gross Sensation Gross Sensation WNL Deep Tendon Reflex & Clonus Assessment Deep Tendon Reflex Bilateral Achilles Deep Tendon Reflex 1+ Diminished Bilateral Patellar Deep Tendon Reflex 3+ Normal But Brisk PT-OP-J Posture/Palpation/Skin Start: 02/11/19 08:04 Freq: Status: Active Protocol: Document 02/11/19 09:50 LRN (Rec: 02/11/19 11:44 LRN [id number]) Posture Evaluation Position Standing Evaluation View All positions Head/C-Spine Posture Forward Head L-Spine Posture Rotation Right Knee Posture (L) Genu Recurvatum,(R) Genu Recurvatum Ankle/Foot Posture (R) Forefoot Eversion Foot Arch (L) Medium Arch,(R) Medium Arch Comments Posture Comments Standing: Pt demonstrates moderate forward head posturing, increased lordosis, elevated R shoulder and scapula, C-curve of the spine with the apex on the right, level pelvis. PT-OP-K Range of Motion Start: 02/11/19 08:04 Freq: Status: Active Protocol: Document 02/14/19 09:45 LRN (Rec: 02/14/19 10:37 LRN [id number]) Knee Goniometric Range of Motion Knee Right Flexion Active (degrees) 128 Hyper-Extension Active 2 Left Flexion Active (degrees) 145 Hyper-Extension Active 2 Ankle and Foot Goniometric Range of Motion Ankle and Foot Right Active Testing Position Supine Inversion 60 Eversion 30 Left Active Testing Position Supine Inversion 45 Eversion 15 Ankle and Foot ROM Limitations Comments At rest (supine): Ankle is in IV: 35 deg's right, 25 deg's left. PT-OP-M Strength Start: 02/11/19 08:04 Freq: Status: Active Protocol: Document 02/11/19 09:50 LRN (Rec: 02/11/19 11:44 LRN [id number]) Hip Strength Hip Manual Muscle Testing Right Reason Not Measured WFL Left Reason Not Measured WFL Knee Strength Knee Manual Muscle Testing Right Flexion (S2) 4+ Good+ Extension (L3) 3 Fair Left Flexion (S2) 5 Normal Extension (L3) 5 Normal Ankle/Foot Strength Ankle and Foot Manual Muscle Testing Right Reason Not Measured WFL Left Reason Not Measured WFL PT-OP-Q Treatments Start: 02/11/19 08:04 Freq: Status: Active Protocol: Document 03/11/19 09:06 LRN (Rec: 03/11/19 09:49 LRN [id number]) Cardio Equipment Bicycle (Upright) Duration (Minutes) 8 Resistance 3 Seat Position 3 Other Indep after therapy. Core stab training. Gym Equipment Cable Column (Body Solid) Leg Curl Details Seat 5, Wheel 14 Resistance 25 Reps/Time 10 x 3 Leg Extension Details Seat 5, Wheel 2 Resistance 15 Reps/Time 10x Shuttle Balance Standing Details Blue support: Standing middle A/P, Sideways Reps/Duration 4' Therapeutic Exercises Supine Exercises Iliopsoas stretch Supine Exercise Name Ilipsoas stretch, f/b 10 active stretches Side bilateral Hamstring/Neural stretch Supine Exercise Name LE neural/hamstring stretch Side bilateral Reps/Minutes 10 + ankle pump x 3 Comments Extra time taken for review, added L side Sidelying Exercises Hip AB Sidelying Exercise Name Hip AB Side right Resistance 0#, 1# Reps/Minutes 10x, 10x 2, respectively Comments Cuing needed for core stabilization Hip AD Sidelying Exercise Name Hip AD Side right Equipment Used 0#, 1# Reps/Minutes 10x 1, 10x 2, respectively Sitting Exercises Ankle EV Sitting Exercise Name Ankle EV Side right Resistance Lev 2 T-Band Reps/Minutes 10x3 Ankle IV Sitting Exercise Name Ankle IV Side right Resistance Lev 2 T-Band Reps/Minutes 10x3 Manual Therapy Treatment Taping R medial knee Body Location R medial knee Treatment Focus Space correction Type of Tape Kinesio Tape Skin Inspection Good Comments No skin irritation prior to taping. Two I-strips across medial knee joint for space correction. Held the I-strips across medial inferior patella fat pad for space correction. PT-OP-R Modalities Start: 02/11/19 08:04 Freq: Status: Active Protocol: Document 03/07/19 09:01 LRN (Rec: 03/07/19 09:48 LRN [id number]) Ultrasound Therapy Treatment R Knee Treatment Duration (minutes) 8 Patient Position Supine Coupling Medium Ultrasound Gel Applicator Size (cm2) 10 Mode Setting Pulsed Duty Cycle 50% Intensity Setting (w/cm2) 1 Comments R medial knee PT-OP-T Assessment and Plan Start: 02/11/19 08:04 Freq: Status: Active Protocol: Document 03/11/19 09:06 LRN (Rec: 03/11/19 09:49 LRN [id number]) Physical Therapy Assessment Assessment Summary Assessment Skin condition is good at K- tape location. Good recall of hip ex, fair recall of ankle ex. Pt having less pain, but using a cane for gait. Popping present. Physical Therapy Plan Frequency and Duration Frequency of Treatment 2x/Week Duration of Treatment 8 weeks Plan of Care Start Date 02/11/19 Plan of Care End Date 04/08/19 Next Visit Focus/Plan Next Note Type Treatment Note Next Visit Plan Continue to monitor K-tape location at R medial knee skin . Reassess progress to goals: Assess pt's tolerance to squatting, & pt's ability for deep breathing with exercises. Continue open chain knee endurance strengthening and strengthening of ankle/hips ( with deep breathing), K-tape for space correction and/or medial joint stability. Progress HEP as appropriate. Pt to go back to MD for recheck due to improved but continued pain. Pt will wean off cane to determine tolerance and improvement.
--- NOTE | 2019-03-14 13:01 | PT.OTN ---
Current Diagnoses Muscle weakness (generalized) (03/14/19) Other tear of medial meniscus, current injury, right knee, initial encounter (03/14/19) Other reduced mobility (03/14/19) Physical Therapy Treatment Note PT-OP-A Visit Information Start: 02/11/19 08:04 Freq: Status: Active Protocol: Document 03/14/19 09:00 LRN (Rec: 03/14/19 09:46 LRN [id number]) Out-Patient Physical Therapy Visit Information Visit Information Visit Type Treatment Note Visit Start Time 09:00 Visit Stop Time 09:53 Total Visit Minutes 53 Visit Number 9 Evaluation Information Evaluation Date 02/11/19 Precautions Precautions Osteopenia, hx of depression/ anxiety controlled by meds. Recent therapy for urinary incontinence (high tone). PT-OP-B Current Condition Start: 02/11/19 08:04 Freq: Status: Active Protocol: Document 02/11/19 09:50 LRN (Rec: 02/11/19 11:07 LRN [id number]) Current Condition History of Current Condition Onset Date 12/05/18. Current Complaints Discomfort in medial R knee, achy. Not able to stand long. History of Current Condition Was stepping down to get out of a jewish van and heard a pop from the R leg that she was stepping down onto. She had immediate pain and some swelling. A week later saw the orthopedic surgeon and was told no surgery needed. That week she had severe pain and was given a cortisone shot a week later that she feels did not help much, and was given a referral for PT. Daughter, who is a nurse, told her to take Tylenol (not IBP due to recent injection). Currently R knee pain is variable. Standing or sitting too long it is worse 4/10, at its best it is 1/10. Using Ice pack on the knee 2x/day. Prior Treatments and Tests X-ray: No fracture, mild joint degeneration. Future Testing and Treatments Planned None Treatment Goals Patient/Caregiver Goals Pt goal is to be healed in 2 months, but it has been 2 months. She is hoping to be healed after 2 months of therapy. Prior Functional Status Baseline Function- ADL's Independent Baseline Function- Mobility Independent Current Functional Impairments (Reported) Functional Limitations- ADL's Getting up/down from floor. Squatting. Pain with deep stair ambulation. Putting shoes on. Functional Limitations- Mobility/Gait Normal unless knee is hurting. Functional Limitations- Recreation/ Exercise walking & gardening ( Hobbies kneeling and weeding) Personal Factors Other Personal Factors That May Effect Osteopenia Therapy/Recovery Anxiety controlled with medication PT-OP-C Subjective Start: 02/11/19 08:04 Freq: Status: Active Protocol: Document 03/14/19 09:00 LRN (Rec: 03/14/19 09:46 LRN [id number]) OP-PT Subjective Patient Comments Patient Comments States she feels something catching in her R knee. States she has been walking without her cane and notices no change. She notes she has been relying on the cane when she maybe didn't need to. States she was sitting last night and her knee locked, but she was able to slowly straighten it with time. PT-OP-F Manual Assessment Start: 02/11/19 08:04 Freq: Status: Active Protocol: Document 02/11/19 09:50 LRN (Rec: 02/11/19 11:44 LRN [id number]) Manual Assessments Soft Tissue Assessment Soft Tissue Mobility Assessment Tender at R knee: medial tibial plateau, medial epicondyle and medial tibial plateau. She has general discomfort around the R patella, anterior and lateral knee. Joint Mobility Assessment Joint Mobility Assessment Held due to pain behaviour with palpation of soft tissue and guarded posturing. PT-OP-H Neuro Start: 02/11/19 08:04 Freq: Status: Active Protocol: Document 02/11/19 09:50 LRN (Rec: 02/11/19 11:44 LRN [id number]) Sensation Evaluation Gross Sensation Gross Sensation WNL Deep Tendon Reflex & Clonus Assessment Deep Tendon Reflex Bilateral Achilles Deep Tendon Reflex 1+ Diminished Bilateral Patellar Deep Tendon Reflex 3+ Normal But Brisk PT-OP-J Posture/Palpation/Skin Start: 02/11/19 08:04 Freq: Status: Active Protocol: Document 02/11/19 09:50 LRN (Rec: 02/11/19 11:44 LRN [id number]) Posture Evaluation Position Standing Evaluation View All positions Head/C-Spine Posture Forward Head L-Spine Posture Rotation Right Knee Posture (L) Genu Recurvatum,(R) Genu Recurvatum Ankle/Foot Posture (R) Forefoot Eversion Foot Arch (L) Medium Arch,(R) Medium Arch Comments Posture Comments Standing: Pt demonstrates moderate forward head posturing, increased lordosis, elevated R shoulder and scapula, C-curve of the spine with the apex on the right, level pelvis. PT-OP-K Range of Motion Start: 02/11/19 08:04 Freq: Status: Active Protocol: Document 03/14/19 09:00 LRN (Rec: 03/14/19 12:45 LRN [id number]) Knee Goniometric Range of Motion Knee Right Patient Position Prone Flexion Active (degrees) 122 Left Patient Position Prone Flexion Active (degrees) 135 PT-OP-M Strength Start: 02/11/19 08:04 Freq: Status: Active Protocol: Document 02/11/19 09:50 LRN (Rec: 02/11/19 11:44 LRN [id number]) Hip Strength Hip Manual Muscle Testing Right Reason Not Measured WFL Left Reason Not Measured WFL Knee Strength Knee Manual Muscle Testing Right Flexion (S2) 4+ Good+ Extension (L3) 3 Fair Left Flexion (S2) 5 Normal Extension (L3) 5 Normal Ankle/Foot Strength Ankle and Foot Manual Muscle Testing Right Reason Not Measured WFL Left Reason Not Measured WFL PT-OP-Q Treatments Start: 02/11/19 08:04 Freq: Status: Active Protocol: Document 03/14/19 09:00 LRN (Rec: 03/14/19 09:46 LRN [id number]) Cardio Equipment Bicycle (Upright) Duration (Minutes) 10 Resistance 3 Seat Position 3 Other Core stab training. Gym Equipment Cable Column (Body Solid) Leg Curl Details Seat 5, Wheel 14 Resistance 30 Reps/Time 10 x 3 Leg Extension Details Seat 5, Wheel 2 Resistance 20 Reps/Time 10x 2, 8x 1 Therapeutic Exercises Supine Exercises Deep Breathing Supine Exercise Name Deep Breathing Reps/Minutes 10x Comments Very good coordination and timing Prone Exercises Knee flexion Prone Exercise Name Knee flexion Side bilateral Reps/Minutes 15x Comments ROM taken after ex Standing Exercises Squat Standing Exercise Name Squat with knees over toes Comments Railing for balance Hip AB Standing Exercise Name Hip AB Side right Resistance Lev 2 T-Band Reps/Minutes 10 x 3 Comments Railing for balance Hip AD Standing Exercise Name Hip AD Side right Resistance Lev 2 Reps/Minutes 10x 3 Comments Railing for balance Heel raises Standing Exercise Name Ankle PF Side bilateral Reps/Minutes 2' Comments Foot in neutral and AB Toe raises Standing Exercise Name Ankle DF stretch f/b active ankle DF Side bilateral Reps/Minutes 3' Comments After stretching Toe raises w/ foot neutral & AB. PT-OP-R Modalities Start: 02/11/19 08:04 Freq: Status: Active Protocol: Document 03/14/19 09:00 LRN (Rec: 03/14/19 09:46 LRN [id number]) Hot Pack/Cold Pack Treatment Cold Pack Location R knee Patient Position Hooklying Treatment Duration (minutes) 10 PT-OP-T Assessment and Plan Start: 02/11/19 08:04 Freq: Status: Active Protocol: Document 03/14/19 09:00 LRN (Rec: 03/14/19 09:46 LRN [id number]) Physical Therapy Assessment Goals Seven Impairment R knee pain with prolonged sitting or standing. Property Custodian Goal (LTG) Pt will have no R medial knee pain with prolonged sitting or standing. LTG Duration 04/08/19 (03/14/19: Sitting knee sometimes locks, stand for a ffew min) Six Impairment R medial knee pain rated 1-4/ 10 intermittently Short Term Goal (STG) Decrease R medial knee pain to 1-2/10, intermittently. STG Duration 03/11/19 (03/07/19: GOAL MET per subjective report) Fdc Goal (LTG) Pt will be able to squat with R knee pain no greater than 1/ 10 and intermittent knee pain no greater than 1/10. LTG Duration 04/08/19 (03/04/19: Goal NOT MET, unable to squat) Five Impairment Pt not able to perform deep breathing properly with ex Short Term Goal (STG) Pt will be able to demonstrate proper deep breathing with ex STG Duration 04/08/19 (03/14/19: GOAL MET ) One Impairment Lacks appropriate self care HEP Fdc Goal (LTG) Pt will be independent with a self care HEP. LTG Duration 04/08/19 (03/07/19: Progressed ) Progress Towards Goals Progress Comments Goal 1: Progressed HEP. Goal 5: Goal MET Goal 6: STG: MET LTG: NOT MET. Goal 7: Goal Not MET. Assessment Summary Assessment Pt presents with internal derangement of the R knee reports of catching in the knee. She lacks full R knee ROM due to pain and with continued exercise her swelling appears to worsen. The pt continues to have pain with prolonged sitting and standing and is not able to tolerate squatting due to pain . There was no change in pain with weaning from cane. Noted with skin check today, she had what appeared to be petechial purple spots at her medial R knee and there was an area of skin flaking where the K-tape had been; therefore held K-tape. The pt needs to return to MD for follow up care. Physical Therapy Plan Frequency and Duration Frequency of Treatment 2x/Week Duration of Treatment 8 weeks Plan of Care Start Date 02/11/19 Plan of Care End Date 04/08/19 Next Visit Focus/Plan Next Note Type Progress Note Next Visit Plan Assess for meniscus tear. Continue open chain knee endurance strengthening and strengthening of ankle/hips ( with deep breathing), assess need for K-tape for space correction and/or medial joint stability. Review HEP and discuss DC with pt returning to MD for follow-up care.
--- NOTE | 2019-03-18 15:22 | PT-OP ANOTE ---
1500 Pt called to inform that she is scheduled for an MRI, probably in 2 weeks. Discussed continuation of therapy and pt preferred to continue therapy; therefore will continue 1x/week until MD visit to determine course of medical care.
--- NOTE | 2019-03-18 17:18 | PT.OTN ---
Current Diagnoses Muscle weakness (generalized) (03/18/19) Other tear of medial meniscus, current injury, right knee, initial encounter (03/18/19) Other reduced mobility (03/18/19) Physical Therapy Treatment Note PT-OP-A Visit Information Start: 02/11/19 08:04 Freq: Status: Active Protocol: Document 03/18/19 09:04 LRN (Rec: 03/18/19 09:51 LRN [id number]) Out-Patient Physical Therapy Visit Information Visit Information Visit Type Progress Note Visit Start Time 09:04 Visit Stop Time 09:51 Total Visit Minutes 47 Visit Number 10 Number of MACHINE FITTER Visits 0 Evaluation Information Evaluation Date 02/11/19 Precautions Precautions Osteopenia, hx of depression/ anxiety controlled by meds. Recent therapy for urinary incontinence (high tone). PT-OP-B Current Condition Start: 02/11/19 08:04 Freq: Status: Active Protocol: Document 02/11/19 09:50 LRN (Rec: 02/11/19 11:07 LRN [id number]) Current Condition History of Current Condition Onset Date 12/05/18. Current Complaints Discomfort in medial R knee, achy. Not able to stand long. History of Current Condition Was stepping down to get out of a quaker van and heard a pop from the R leg that she was stepping down onto. She had immediate pain and some swelling. A week later saw the orthopedic surgeon and was told no surgery needed. That week she had severe pain and was given a cortisone shot a week later that she feels did not help much, and was given a referral for PT. Daughter, who is a nurse, told her to take Tylenol (not IBP due to recent injection). Currently R knee pain is variable. Standing or sitting too long it is worse 4/10, at its best it is 1/10. Using Ice pack on the knee 2x/day. Prior Treatments and Tests X-ray: No fracture, mild joint degeneration. Future Testing and Treatments Planned None Treatment Goals Patient/Caregiver Goals Pt goal is to be healed in 2 months, but it has been 2 months. She is hoping to be healed after 2 months of therapy. Prior Functional Status Baseline Function- ADL's Independent Baseline Function- Mobility Independent Current Functional Impairments (Reported) Functional Limitations- ADL's Getting up/down from floor. Squatting. Pain with deep stair ambulation. Putting shoes on. Functional Limitations- Mobility/Gait Normal unless knee is hurting. Functional Limitations- Recreation/ Exercise walking & gardening ( Hobbies kneeling and weeding) Personal Factors Other Personal Factors That May Effect Osteopenia Therapy/Recovery Anxiety controlled with medication PT-OP-C Subjective Start: 02/11/19 08:04 Freq: Status: Active Protocol: Document 03/18/19 09:04 LRN (Rec: 03/18/19 09:51 LRN [id number]) OP-PT Subjective Patient Comments Patient Comments States her R knee hurts today, continues to click and pop and lock. C/O of pain with use of bike. States she carried a 20# child down staitr. Have popping & locking of the knee OP-PT Pain Assessment Pain Assessment Grid Paper Pain Assessment Grid Completed No Location R knee Pain Location Details R medial plateau of Tibia, sometimes all around the front of the knee. Intensity 5 Comments Pain Comments Pt reports pain is inside the knee joint. PT-OP-F Manual Assessment Start: 02/11/19 08:04 Freq: Status: Active Protocol: Document 02/11/19 09:50 LRN (Rec: 02/11/19 11:44 LRN [id number]) Manual Assessments Soft Tissue Assessment Soft Tissue Mobility Assessment Tender at R knee: medial tibial plateau, medial epicondyle and medial tibial plateau. She has general discomfort around the R patella, anterior and lateral knee. Joint Mobility Assessment Joint Mobility Assessment Held due to pain behaviour with palpation of soft tissue and guarded posturing. PT-OP-H Neuro Start: 02/11/19 08:04 Freq: Status: Active Protocol: Document 02/11/19 09:50 LRN (Rec: 02/11/19 11:44 LRN [id number]) Sensation Evaluation Gross Sensation Gross Sensation WNL Deep Tendon Reflex & Clonus Assessment Deep Tendon Reflex Bilateral Achilles Deep Tendon Reflex 1+ Diminished Bilateral Patellar Deep Tendon Reflex 3+ Normal But Brisk PT-OP-J Posture/Palpation/Skin Start: 02/11/19 08:04 Freq: Status: Active Protocol: Document 02/11/19 09:50 LRN (Rec: 02/11/19 11:44 LRN [id number]) Posture Evaluation Position Standing Evaluation View All positions Head/C-Spine Posture Forward Head L-Spine Posture Rotation Right Knee Posture (L) Genu Recurvatum,(R) Genu Recurvatum Ankle/Foot Posture (R) Forefoot Eversion Foot Arch (L) Medium Arch,(R) Medium Arch Comments Posture Comments Standing: Pt demonstrates moderate forward head posturing, increased lordosis, elevated R shoulder and scapula, C-curve of the spine with the apex on the right, level pelvis. PT-OP-K Range of Motion Start: 02/11/19 08:04 Freq: Status: Active Protocol: Document 03/18/19 09:04 LRN (Rec: 03/18/19 09:51 LRN [id number]) Knee Goniometric Range of Motion Knee Right Patient Position Prone Flexion Active (degrees) 130 Hyper-Extension Active 3 Left Patient Position Prone Flexion Active (degrees) 135 Hyper-Extension Active 2 PT-OP-M Strength Start: 02/11/19 08:04 Freq: Status: Active Protocol: Document 03/18/19 09:04 LRN (Rec: 03/18/19 09:51 LRN [id number]) Hip Strength Hip Manual Muscle Testing Right Reason Not Measured WFL Left Reason Not Measured WFL Knee Strength Knee Manual Muscle Testing Right Flexion (S2) 4 Good Extension (L3) 4+ Good+ Comments Limited by medial knee pain Left Flexion (S2) 5 Normal Extension (L3) 5 Normal PT-OP-Q Treatments Start: 02/11/19 08:04 Freq: Status: Active Protocol: Document 03/18/19 09:04 LRN (Rec: 03/18/19 09:51 LRN [id number]) Cardio Equipment Bicycle (Upright) Duration (Minutes) 3 Resistance 3 Seat Position 3 Other Exercise was stopped due to increasing discomfort in the R knee. Gym Equipment Cable Column (Body Solid) Leg Curl Details Seat 5, Wheel 14 Resistance 30 Reps/Time 10 x 3 Leg Extension Details Seat 5, Wheel 2 Resistance 20 Reps/Time 10x 2, 8x 1 Therapeutic Exercises Supine Exercises SLR Supine Exercise Name SLR 10, 12 & 2 O'Clock Side right Equipment Used 2# Reps/Minutes 8x Quad sets Supine Exercise Name QS Side right Comments Extra time taken for ROM taken Deep Breathing Supine Exercise Name Deep breathing Reps/Minutes 10x Comments Very good coordination and timing Prone Exercises Knee flexion Prone Exercise Name Knee flexion Side bilateral Reps/Minutes 15x Comments Extra time taken for ROM & MMT Sidelying Exercises Hip AB Sidelying Exercise Name Hip AB Side right Resistance 1# Reps/Minutes 15x 2 Hip AD Sidelying Exercise Name Hip AD Side right Equipment Used 1# Reps/Minutes 15x 2 Sitting Exercises Knee ext Sitting Exercise Name Open chain knee ext Side right Reps/Minutes 10 Comments Extra time taken for MMT. PT-OP-R Modalities Start: 02/11/19 08:04 Freq: Status: Active Protocol: Document 03/18/19 09:04 LRN (Rec: 03/18/19 17:17 LRN [id number]) Ultrasound Therapy Treatment R Knee Treatment Duration (minutes) 8 Patient Position Supine Coupling Medium Ultrasound Gel Applicator Size (cm2) 10 Mode Setting Pulsed Duty Cycle 50% Intensity Setting (w/cm2) 1 Comments R medial knee PT-OP-T Assessment and Plan Start: 02/11/19 08:04 Freq: Status: Active Protocol: Document 03/18/19 09:04 LRN (Rec: 03/18/19 09:51 LRN [id number]) Physical Therapy Assessment Rehab Potential Rehabilitation Potential Fair Evaluation Complexity Number of Personal Factors/Comorbidities 1-2 Number of Body Systems Impaired 4 or More Clinical Presentation at Evaluation Stable Impairments Impairments Activity Tolerance,Balance, Functional Mobility,Pain, Posture,Strength Goals Seven Impairment R knee pain with prolonged sitting or standing. Summer Camp Counselor Goal (LTG) Pt will have no R medial knee pain with prolonged sitting or standing. LTG Duration 04/08/19 (03/18/19: Sitting knee sometimes locks, stand for a few min) Six Impairment R medial knee pain rated 1-4/ 10 intermittently Short Term Goal (STG) Decrease R medial knee pain to 1-2/10, intermittently. STG Duration 04/30/19 (03/07: GOAL MET, but 03/18: Pain 5-6/10) Intermediate Goal (LTG) Pt will be able to squat with R knee pain no greater than 1/ 10 and intermittent knee pain no greater than 1/10. LTG Duration 04/30/19 (03/04/19: Goal NOT MET, unable to squat) Five Impairment Pt not able to perform deep breathing properly with ex Short Term Goal (STG) Pt will be able to demonstrate proper deep breathing with ex STG Duration 04/08/19 (03/14/19: GOAL MET ) Assessment Summary Assessment Pt presents with possible internal derangement of the R knee with popping and locking of the R knee. Joaquin test is + for pain at the medial knee but no clicking was palpable. The pt has been doing primarily open chain and isometric strengthening ex's (range limited) and use of bike at low resistance and high rpm. She attends at times with more pain complaints than other days depending on her activity levels. Recently she had carried a heavy child down stairs and presented today in greater knee pain and reports of feeling unstable at the knee sometimes. The pt is being referred back for further assessment. The pt is interested in continuing with therapy to keep her knee as strong as possible while she waits for further assessment. I think it would be appropriate to progress her as she is able 1x/week and if surgery is needed she can be discharged to a [facility]. If you recommended her to continue therapy we will at 2x/week. Physical Therapy Plan Frequency and Duration Frequency of Treatment 2x/Week Plan of Care Start Date 03/18/19 Plan of Care End Date 04/30/19 Therapeutic Interventions Therapeutic Interventions Home Exercise Program,Joint Mobilizations,Manual Therapy, Neuromuscular Re-education, Patient/Caregiver Education, Self-Care/Home Management,Soft Tissue Mobilization,Taping, Therapeutic Exercises Modalities Cold Pack/Ice Massage,Electric Stimulation,Ultrasound Other Therapeutic Interventions Iontophoresis with 4mg/mL dexamethasone with Sodium Phospate. Next Visit Focus/Plan Next Note Type Treatment Note Next Visit Plan Continue ex's for possible meniscus tear as pt tolerates. Continue open chain knee endurance strengthening and strengthening of ankle/hips, K-tape for space correction and/or medial joint stability. Continue as MD recommends or DC to [facility]P if surgery is planned.
--- NOTE | 2019-03-18 17:18 | PT.OPPOC ---
Current Diagnoses Muscle weakness (generalized) (03/18/19) Other tear of medial meniscus, current injury, right knee, initial encounter (03/18/19) Other reduced mobility (03/18/19) Visit Care Team Role Provider Type SANDRA Miranda Other Providers Non-Staff Primary Care Provider Specialty: Medical Address: [address] [place] [address], [id number] Email: Poppy Sahu PA-C Attending Provider Advanced Asset Accountant Specialty: Orthopedics Address: [address] [place] [address], [id number] Email: [email or web address] Plan Of Care PT-OP-T Assessment and Plan Start: 02/11/19 08:04 Freq: Status: Active Protocol: Document 03/18/19 09:04 LRN (Rec: 03/18/19 09:51 LRN [id number]) Physical Therapy Assessment Rehab Potential Rehabilitation Potential Fair Evaluation Complexity Number of Personal Factors/Comorbidities 1-2 Number of Body Systems Impaired 4 or More Clinical Presentation at Evaluation Stable Impairments Impairments Activity Tolerance,Balance, Functional Mobility,Pain, Posture,Strength Goals Seven Impairment R knee pain with prolonged sitting or standing. Jail Goal (LTG) Pt will have no R medial knee pain with prolonged sitting or standing. LTG Duration 04/08/19 (03/18/19: Sitting knee sometimes locks, stand for a few min) Six Impairment R medial knee pain rated 1-4/ 10 intermittently Short Term Goal (STG) Decrease R medial knee pain to 1-2/10, intermittently. STG Duration 04/30/19 (03/07: GOAL MET, but 03/18: Pain 5-6/10) Dry Cell Assembly Supervisor Goal (LTG) Pt will be able to squat with R knee pain no greater than 1/ 10 and intermittent knee pain no greater than 1/10. LTG Duration 04/30/19 (03/04/19: Goal NOT MET, unable to squat) Five Impairment Pt not able to perform deep breathing properly with ex Short Term Goal (STG) Pt will be able to demonstrate proper deep breathing with ex STG Duration 04/08/19 (11/14/19: GOAL MET ) Assessment Summary Assessment Pt presents with possible internal derangement of the R knee with popping and locking of the R knee. Joaquin test is + for pain at the medial knee but no clicking was palpable. The pt has been doing primarily open chain and isometric strengthening ex's (range limited) and use of bike at low resistance and high rpm. She attends at times with more pain complaints than other days depending on her activity levels. Recently she had carried a heavy child down stairs and presented today in greater knee pain and reports of feeling unstable at the knee sometimes. The pt is being referred back for further assessment. The pt is interested in continuing with therapy to keep her knee as strong as possible while she waits for further assessment. I think it would be appropriate to progress her as she is able 1x/week and if surgery is needed she can be discharged to a [facility]. If you recommended her to continue therapy we will at 2x/week. Physical Therapy Plan Frequency and Duration Frequency of Treatment 2x/Week Plan of Care Start Date 03/18/19 Plan of Care End Date 04/30/19 Therapeutic Interventions Therapeutic Interventions Home Exercise Program,Joint Mobilizations,Manual Therapy, Neuromuscular Re-education, Patient/Caregiver Education, Self-Care/Home Management,Soft Tissue Mobilization,Taping, Therapeutic Exercises Modalities Cold Pack/Ice Massage,Electric Stimulation,Ultrasound Other Therapeutic Interventions Iontophoresis with 4mg/mL dexamethasone with Sodium Phospate. Next Visit Focus/Plan Next Note Type Treatment Note Next Visit Plan Continue ex's for possible meniscus tear as pt tolerates. Continue open chain knee endurance strengthening and strengthening of ankle/hips, K-tape for space correction and/or medial joint stability. Continue as MD recommends or DC to [facility] if surgery is planned. Plan of Care Dates Plan of Care Start Date 03/18/19 Plan of Care End Date 04/30/19
--- NOTE | 2019-03-25 17:36 | PT.OTN ---
Current Diagnoses Muscle weakness (generalized) (03/25/19) Other tear of medial meniscus, current injury, right knee, initial encounter (03/25/19) Other reduced mobility (03/25/19) Physical Therapy Treatment Note PT-OP-A Visit Information Start: 02/11/19 08:04 Freq: Status: Active Protocol: Document 03/25/19 09:04 LRN (Rec: 03/25/19 09:46 LRN [id number]) Out-Patient Physical Therapy Visit Information Visit Information Visit Type Treatment Note Visit Note 05/10 after PN Visit Start Time 09:04 Visit Stop Time 09:45 Total Visit Minutes 41 Visit Number 11 Number of FISHING FLOATS ASSEMBLER Visits 0 Evaluation Information Evaluation Date 02/11/19 Precautions Precautions Osteopenia, hx of depression/ anxiety controlled by meds. Recent therapy for urinary incontinence (high tone). PT-OP-B Current Condition Start: 02/11/19 08:04 Freq: Status: Active Protocol: Document 02/11/19 09:50 LRN (Rec: 02/11/19 11:07 LRN [id number]) Current Condition History of Current Condition Onset Date 12/05/18. Current Complaints Discomfort in medial R knee, achy. Not able to stand long. History of Current Condition Was stepping down to get out of a jew van and heard a pop from the R leg that she was stepping down onto. She had immediate pain and some swelling. A week later saw the orthopedic surgeon and was told no surgery needed. That week she had severe pain and was given a cortisone shot a week later that she feels did not help much, and was given a referral for PT. Daughter, who is a nurse, told her to take Tylenol (not IBP due to recent injection). Currently R knee pain is variable. Standing or sitting too long it is worse 4/10, at its best it is 1/10. Using Ice pack on the knee 2x/day. Prior Treatments and Tests X-ray: No fracture, mild joint degeneration. Future Testing and Treatments Planned None Treatment Goals Patient/Caregiver Goals Pt goal is to be healed in 2 months, but it has been 2 months. She is hoping to be healed after 2 months of therapy. Prior Functional Status Baseline Function- ADL's Independent Baseline Function- Mobility Independent Current Functional Impairments (Reported) Functional Limitations- ADL's Getting up/down from floor. Squatting. Pain with deep stair ambulation. Putting shoes on. Functional Limitations- Mobility/Gait Normal unless knee is hurting. Functional Limitations- Recreation/ Exercise walking & gardening ( Hobbies kneeling and weeding) Personal Factors Other Personal Factors That May Effect Osteopenia Therapy/Recovery Anxiety controlled with medication PT-OP-C Subjective Start: 02/11/19 08:04 Freq: Status: Active Protocol: Document 03/25/19 09:04 LRN (Rec: 03/25/19 09:46 LRN [id number]) OP-PT Subjective Patient Comments Patient Comments States she has been taking it easy and her R knee isn't too bad. States yesterday at jew her knee did a loud pop . Couldn't recall if it was painful. PT-OP-F Manual Assessment Start: 02/11/19 08:04 Freq: Status: Active Protocol: Document 02/11/19 09:50 LRN (Rec: 02/11/19 11:44 LRN [id number]) Manual Assessments Soft Tissue Assessment Soft Tissue Mobility Assessment Tender at R knee: medial tibial plateau, medial epicondyle and medial tibial plateau. She has general discomfort around the R patella, anterior and lateral knee. Joint Mobility Assessment Joint Mobility Assessment Held due to pain behaviour with palpation of soft tissue and guarded posturing. PT-OP-H Neuro Start: 02/11/19 08:04 Freq: Status: Active Protocol: Document 02/11/19 09:50 LRN (Rec: 02/11/19 11:44 LRN [id number]) Sensation Evaluation Gross Sensation Gross Sensation WNL Deep Tendon Reflex & Clonus Assessment Deep Tendon Reflex Bilateral Achilles Deep Tendon Reflex 1+ Diminished Bilateral Patellar Deep Tendon Reflex 3+ Normal But Brisk PT-OP-J Posture/Palpation/Skin Start: 02/11/19 08:04 Freq: Status: Active Protocol: Document 02/11/19 09:50 LRN (Rec: 02/11/19 11:44 LRN [id number]) Posture Evaluation Position Standing Evaluation View All positions Head/C-Spine Posture Forward Head L-Spine Posture Rotation Right Knee Posture (L) Genu Recurvatum,(R) Genu Recurvatum Ankle/Foot Posture (R) Forefoot Eversion Foot Arch (L) Medium Arch,(R) Medium Arch Comments Posture Comments Standing: Pt demonstrates moderate forward head posturing, increased lordosis, elevated R shoulder and scapula, C-curve of the spine with the apex on the right, level pelvis. PT-OP-K Range of Motion Start: 02/11/19 08:04 Freq: Status: Active Protocol: Document 03/18/19 09:04 LRN (Rec: 03/18/19 09:51 LRN [id number]) Knee Goniometric Range of Motion Knee Right Patient Position Prone Flexion Active (degrees) 130 Hyper-Extension Active 3 Left Patient Position Prone Flexion Active (degrees) 135 Hyper-Extension Active 2 PT-OP-M Strength Start: 02/11/19 08:04 Freq: Status: Active Protocol: Document 03/18/19 09:04 LRN (Rec: 03/18/19 09:51 LRN [id number]) Hip Strength Hip Manual Muscle Testing Right Reason Not Measured WFL Left Reason Not Measured WFL Knee Strength Knee Manual Muscle Testing Right Flexion (S2) 4 Good Extension (L3) 4+ Good+ Comments Limited by medial knee pain Left Flexion (S2) 5 Normal Extension (L3) 5 Normal PT-OP-Q Treatments Start: 02/11/19 08:04 Freq: Status: Active Protocol: Document 03/25/19 09:04 LRN (Rec: 03/25/19 09:46 LRN [id number]) Cardio Equipment Bicycle (Upright) Duration (Minutes) 10 Resistance 3 Seat Position 3 Gym Equipment Cable Column (Body Solid) Leg Curl Details Seat 5, Wheel 14 Resistance 30 Reps/Time 10 x 3 Leg Extension Details Seat 5, Wheel 2 Resistance 15 Reps/Time 10x 2, 8x 1 Therapeutic Exercises Supine Exercises Happy Baby Pose Supine Exercise Name Happy Baby Pose Reps/Minutes 10 sec hold x 5 Comments Good breathing with ex Iliopsoas stretch Supine Exercise Name Review of Ilipsoas stretch, f/ b 10 active stretches Side left Comments Pt has good recall Hamstring/Neural stretch Supine Exercise Name LE neural/hamstring stretch Side bilateral Reps/Minutes 10 + ankle pump x 3 Comments Symmetry with mobility SLR Supine Exercise Name SLR 11, 12 & 2 O'Clock Side right Equipment Used 2# Reps/Minutes 10 eachx Sidelying Exercises Hip AB Sidelying Exercise Name Hip AB Side right Resistance 2# Reps/Minutes 10x 3 Hip AD Sidelying Exercise Name Hip AD Side right Equipment Used 2# Reps/Minutes 10x 3 PT-OP-R Modalities Start: 02/11/19 08:04 Freq: Status: Active Protocol: Document 03/25/19 09:04 LRN (Rec: 03/25/19 09:46 LRN [id number]) Ultrasound Therapy Treatment R Knee Treatment Duration (minutes) 8 Patient Position Supine Coupling Medium Ultrasound Gel Applicator Size (cm2) 10 Mode Setting Pulsed Duty Cycle 50% Intensity Setting (w/cm2) 1 Comments R medial knee PT-OP-T Assessment and Plan Start: 02/11/19 08:04 Freq: Status: Active Protocol: Document 03/25/19 09:04 LRN (Rec: 03/25/19 09:46 LRN [id number]) Physical Therapy Assessment Goals Seven Impairment R knee pain with prolonged sitting or standing. Usp Goal (LTG) Pt will have no R medial knee pain with prolonged sitting or standing. LTG Duration 04/08/19 (03/18/19: Sitting knee sometimes locks, stand for a few min) Six Impairment R medial knee pain rated 1-4/ 10 intermittently Short Term Goal (STG) Decrease R medial knee pain to 1-2/10, intermittently. STG Duration 04/30/19 (03/07: GOAL MET, but 03/18/19: Pain 5-6/10) Wall Crane Operator Goal (LTG) Pt will be able to squat with R knee pain no greater than 1/ 10 and intermittent knee pain no greater than 1/10. LTG Duration 04/30/19 (03/04/19: Goal NOT MET, unable to squat) Five Impairment Pt not able to perform deep breathing properly with ex Short Term Goal (STG) Pt will be able to demonstrate proper deep breathing with ex STG Duration 04/08/19 (03/14/19: GOAL MET ) One Impairment Lacks appropriate self care HEP Wall Crane Operator Goal (LTG) Pt will be independent with a self care HEP. LTG Duration 04/08/19 (03/07/19: Progressed ) Assessment Summary Assessment Pt continues to have episodes of popping at the knee; therefore possible meniscus injury. Today she shows very little dysfunction with normal R knee ROM. Pt will have MRI 04/01/19 & MD visit 04/02/19. Pt shows good deep breathing ability and has good recall of her PF home ex's. Physical Therapy Plan Frequency and Duration Frequency of Treatment 2x/Week Plan of Care Start Date 03/18/19 Plan of Care End Date 04/30/19 Next Visit Focus/Plan Next Note Type Treatment Note Next Visit Plan Continue as MD recommends or DC to HEP if surgery is planned. Reassess if DC to HEP. Discuss with pt open chain knee endurance strengthening and strengthening of ankle/hips for home ex's.
--- NOTE | 2019-04-11 10:38 | PT.OTN ---
Current Diagnoses Muscle weakness (generalized) (04/11/19) Other tear of medial meniscus, current injury, right knee, initial encounter (04/11/19) Other reduced mobility (04/11/19) Physical Therapy Treatment Note PT-OP-A Visit Information Start: 02/11/19 08:04 Freq: Status: Active Protocol: Document 04/11/19 09:48 LRN (Rec: 04/11/19 10:36 LRN [id number]) Out-Patient Physical Therapy Visit Information Visit Information Visit Type Discharge Summary Visit Start Time 09:48 Visit Stop Time 10:35 Total Visit Minutes 47 Visit Number 12 Number of DIPLOMATIC INTERPRETER/TRANSLATOR Visits 0 Evaluation Information Evaluation Date 02/11/19 Precautions Precautions Osteopenia, hx of depression/ anxiety controlled by meds. Recent therapy for urinary incontinence (high tone). PT-OP-B Current Condition Start: 02/11/19 08:04 Freq: Status: Active Protocol: Document 02/11/19 09:50 LRN (Rec: 02/11/19 11:07 LRN [id number]) Current Condition History of Current Condition Onset Date 12/05/18. Current Complaints Discomfort in medial R knee, achy. Not able to stand long. History of Current Condition Was stepping down to get out of a rastafarian van and heard a pop from the R leg that she was stepping down onto. She had immediate pain and some swelling. A week later saw the orthopedic surgeon and was told no surgery needed. That week she had severe pain and was given a cortisone shot a week later that she feels did not help much, and was given a referral for PT. Daughter, who is a nurse, told her to take Tylenol (not IBP due to recent injection). Currently R knee pain is variable. Standing or sitting too long it is worse 4/10, at its best it is 1/10. Using Ice pack on the knee 2x/day. Prior Treatments and Tests X-ray: No fracture, mild joint degeneration. Future Testing and Treatments Planned None Treatment Goals Patient/Caregiver Goals Pt goal is to be healed in 2 months, but it has been 2 months. She is hoping to be healed after 2 months of therapy. Prior Functional Status Baseline Function- ADL's Independent Baseline Function- Mobility Independent Current Functional Impairments (Reported) Functional Limitations- ADL's Getting up/down from floor. Squatting. Pain with deep stair ambulation. Putting shoes on. Functional Limitations- Mobility/Gait Normal unless knee is hurting. Functional Limitations- Recreation/ Exercise walking & gardening ( Hobbies kneeling and weeding) Personal Factors Other Personal Factors That May Effect Osteopenia Therapy/Recovery Anxiety controlled with medication PT-OP-C Subjective Start: 02/11/19 08:04 Freq: Status: Active Protocol: Document 04/11/19 09:48 LRN (Rec: 04/11/19 10:36 LRN [id number]) OP-PT Subjective Patient Comments Patient Comments Last appointment. MRI showed a meniscus tear; therefore plan is for a partial knee replacement. Pt will have a cortisone injection ~05/13/19 just prior to trip planned Jun 02-2019. Patient Questionnaires Lower Extremity Functional Scale LEFS Score 32 LEFS Impairment 40 to 59% Impaired (Score 32- 47) PT-OP-F Manual Assessment Start: 02/11/19 08:04 Freq: Status: Active Protocol: Document 02/11/19 09:50 LRN (Rec: 02/11/19 11:44 LRN [id number]) Manual Assessments Soft Tissue Assessment Soft Tissue Mobility Assessment Tender at R knee: medial tibial plateau, medial epicondyle and medial tibial plateau. She has general discomfort around the R patella, anterior and lateral knee. Joint Mobility Assessment Joint Mobility Assessment Held due to pain behaviour with palpation of soft tissue and guarded posturing. PT-OP-H Neuro Start: 02/11/19 08:04 Freq: Status: Active Protocol: Document 02/11/19 09:50 LRN (Rec: 02/11/19 11:44 LRN [id number]) Sensation Evaluation Gross Sensation Gross Sensation WNL Deep Tendon Reflex & Clonus Assessment Deep Tendon Reflex Bilateral Achilles Deep Tendon Reflex 1+ Diminished Bilateral Patellar Deep Tendon Reflex 3+ Normal But Brisk PT-OP-J Posture/Palpation/Skin Start: 02/11/19 08:04 Freq: Status: Active Protocol: Document 02/11/19 09:50 LRN (Rec: 02/11/19 11:44 LRN [id number]) Posture Evaluation Position Standing Evaluation View All positions Head/C-Spine Posture Forward Head L-Spine Posture Rotation Right Knee Posture (L) Genu Recurvatum,(R) Genu Recurvatum Ankle/Foot Posture (R) Forefoot Eversion Foot Arch (L) Medium Arch,(R) Medium Arch Comments Posture Comments Standing: Pt demonstrates moderate forward head posturing, increased lordosis, elevated R shoulder and scapula, C-curve of the spine with the apex on the right, level pelvis. PT-OP-K Range of Motion Start: 02/11/19 08:04 Freq: Status: Active Protocol: Document 03/18/19 09:04 LRN (Rec: 03/18/19 09:51 LRN [id number]) Knee Goniometric Range of Motion Knee Right Patient Position Prone Flexion Active (degrees) 130 Hyper-Extension Active 3 Left Patient Position Prone Flexion Active (degrees) 135 Hyper-Extension Active 2 PT-OP-M Strength Start: 02/11/19 08:04 Freq: Status: Active Protocol: Document 03/18/19 09:04 LRN (Rec: 03/18/19 09:51 LRN [id number]) Hip Strength Hip Manual Muscle Testing Right Reason Not Measured WFL Left Reason Not Measured WFL Knee Strength Knee Manual Muscle Testing Right Flexion (S2) 4 Good Extension (L3) 4+ Good+ Comments Limited by medial knee pain Left Flexion (S2) 5 Normal Extension (L3) 5 Normal PT-OP-Q Treatments Start: 02/11/19 08:04 Freq: Status: Active Protocol: Document 04/11/19 09:48 LRN (Rec: 04/11/19 10:36 LRN [id number]) Cardio Equipment Bicycle (Upright) Duration (Minutes) 10 Resistance 3 Seat Position 3 Other 70 RPM Therapeutic Exercises Supine Exercises Active knee ROM Supine Exercise Name AROM R knee Reps/Minutes 1x each for stretch Happy Baby Pose Supine Exercise Name Happy Baby Pose Reps/Minutes 60 sec hold x 1 Comments Good breathing with ex Iliopsoas stretch Supine Exercise Name Iliopsoas Stretch review Side right Hamstring/Neural stretch Supine Exercise Name Hamstring/neural stretch review SLR Supine Exercise Name SLR 11, 12 & 2 O'Clock Side right Equipment Used 2# Reps/Minutes 10x each Sitting Exercises Ankle EV Sitting Exercise Name Ankle EV Side right Resistance Lev 2 T-Band Comments Review Ankle IV Sitting Exercise Name Ankle IV Side right Resistance Level 2 T-Band Comments Review Self-Care/Home Management Treatment Education Patient Education Pain Management Other Education Pt educated with handouts issued for: anti-inflammatory food education and use of Frye Milk for inflammation. Activities Self-Care/Home Management Activities Reviewed each exercise on her HEP. Reviewed best exercise of bike at low resistance and high rpm for quad strengthening. PT-OP-R Modalities Start: 02/11/19 08:04 Freq: Status: Active Protocol: Document 03/25/19 09:04 LRN (Rec: 03/25/19 09:46 LRN [id number]) Ultrasound Therapy Treatment R Knee Treatment Duration (minutes) 8 Patient Position Supine Coupling Medium Ultrasound Gel Applicator Size (cm2) 10 Mode Setting Pulsed Duty Cycle 50% Intensity Setting (w/cm2) 1 Comments R medial knee PT-OP-T Assessment and Plan Start: 02/11/19 08:04 Freq: Status: Active Protocol: Document 04/11/19 09:48 LRN (Rec: 04/11/19 10:36 LRN [id number]) Physical Therapy Assessment Goals Seven Impairment R knee pain with prolonged sitting or standing. Publications Distribution Clerk Goal (LTG) Pt will have no R medial knee pain with prolonged sitting or standing. LTG Duration 04/08/19 (04/11/19: GOAL NOT MET. Pain sitting 4/10, standing 4-5/10) Six Impairment R medial knee pain rated 1-4/ 10 intermittently Short Term Goal (STG) Decrease R medial knee pain to 1-2/10, intermittently. STG Duration 04/30/19 (03/07: GOAL NOT MET. Pain 2-5/10.) [facility] Goal (LTG) Pt will be able to squat with R knee pain no greater than 1/ 10 and intermittent knee pain no greater than 1/10. LTG Duration 04/30/19 (04/11/19: Goal NOT MET, unable to squat) Five Impairment Pt not able to perform deep breathing properly with ex Short Term Goal (STG) Pt will be able to demonstrate proper deep breathing with ex STG Duration 04/08/19 (03/14/19: GOAL MET ) One Impairment Lacks appropriate self care HEP [facility] Goal (LTG) Pt will be independent with a self care HEP. LTG Duration 04/08/19 (04/11/19: GOAL MET) Assessment Summary Assessment Pt had many questions cleared during therapy. Pt appears to have a good understanding of her HEP. Her R knee ROM is normal and today she had very good tolerance to exercise without complaints of pain, clicking or locking. She did not return to her prior level of function due to internal derangement of meniscus of the R knee. Pt is ready to be placed on her HEP. Physical Therapy Plan Frequency and Duration Frequency of Treatment 2x/Week Plan of Care Start Date 03/18/19 Plan of Care End Date 04/30/19 Discharge Physical Therapy Discharge Reasons Plateau in Progress Discharge Comments Pt is ready to continue with an independent HEP. Thank you for your referral.
== END 2019-04-26 09:50 | disposition home or self-care (01) ==
LOC: PHYS 09:45
PROVIDERS: PCP Nurse Practitioner Family; Visit Provider Physician Assistant Surgical
DX: S83.241A Other tear of medial meniscus, current injury, right knee, initial encounter (principal); M62.81 Muscle weakness (generalized); Z74.09 Other reduced mobility
CPT/HCPCS: 97010; 97035; 97110; 97140; 97161; 97535

== ENCOUNTER → 2019-04-11 14:42 | Outpatient (CLI) | payer OTHER, SELFPAY ==
--- NOTE | 2019-04-11 | DI.MG.S_ITS ---
BILATERAL DIGITAL SCREENING MAMMOGRAM 3D/2D WITH CAD: 04/11/2019 CLINICAL: Routine screening. Family history of breast cancer. Comparison is made to exams dated: 03/30/2018 mammogram, 03/24/2017 mammogram, and 05/12/2015 mammogram - [facility]. The tissue of both breasts is heterogeneously dense. This may lower the sensitivity of mammography. Current study was also evaluated with a Computer Aided Detection (CAD) system. No significant masses, calcifications, or other findings are seen in either breast. There has been no significant interval change. IMPRESSION: NEGATIVE There is no mammographic evidence of malignancy. A 1 year screening mammogram is recommended. This exam was interpreted at Station ID: [id number]. NOTE: For mammograms, a report in lay terms will be sent to the patient. Approximately 15% of breast malignancies will not be visualized mammographically. In the management of a palpable breast mass, a negative mammogram must not discourage biopsy of a clinically suspicious lesion. Electronically Signed By: Aleyda mcneal/gali:04/11/2019 16:38:34 letter sent: Normal Exam ACR BI-RADS Category 1: Negative [id number]
== END ==
PROVIDERS: PCP Nurse Practitioner Family; Visit Provider Family Medicine
DX: Z12.31 Encounter for screening mammogram for malignant neoplasm of breast (principal); Z80.3 Family history of malignant neoplasm of breast; Z13.820 Encounter for screening for osteoporosis; M85.852 Other specified disorders of bone density and structure, left thigh; Z78.0 Asymptomatic menopausal state
CPT/HCPCS: 77063; 77067; 77080

== ENCOUNTER → 2020-04-17 16:19 | Outpatient (CLI) | payer OTHER, SELFPAY ==
--- NOTE | 2020-04-17 | DI.MG.S_ITS ---
BILATERAL DIGITAL SCREENING MAMMOGRAM 3D/2D WITH CAD: 04/17/2020 CLINICAL: Routine screening. Family history of breast cancer. Comparison is made to exams dated: 04/11/2019 mammogram, 03/30/2018 mammogram, and 03/24/2017 mammogram - [facility]. The tissue of both breasts is heterogeneously dense. This may lower the sensitivity of mammography. Current study was also evaluated with a Computer Aided Detection (CAD) system. No significant masses, calcifications, or other findings are seen in either breast. There has been no significant interval change. IMPRESSION: NEGATIVE There is no mammographic evidence of malignancy. A 1 year screening mammogram is recommended. This exam was interpreted at Station ID: [id number]. NOTE: For mammograms, a report in lay terms will be sent to the patient. Approximately 15% of breast malignancies will not be visualized mammographically. In the management of a palpable breast mass, a negative mammogram must not discourage biopsy of a clinically suspicious lesion. Electronically Signed By: Josh garcia/gali:04/17/2020 17:01:01 letter sent: Normal Exam ACR BI-RADS Category 1: Negative 3341F
== END ==
PROVIDERS: PCP Internal Medicine; Referring Provider Internal Medicine; Visit Provider Internal Medicine
DX: Z12.31 Encounter for screening mammogram for malignant neoplasm of breast (principal); Z80.3 Family history of malignant neoplasm of breast
CPT/HCPCS: 77063; 77067

== ENCOUNTER → 2021-04-20 14:35 | Outpatient (CLI) | payer OTHER, SELFPAY ==
--- NOTE | 2021-04-20 14:37 | DI.MG.S_ITS ---
BILATERAL DIGITAL SCREENING MAMMOGRAM 3D/2D WITH CAD: 04/20/2021 CLINICAL: Routine screening. Family history of breast cancer. Comparison is made to exams dated: 04/17/2020 mammogram, 04/11/2019 mammogram, and 03/30/2018 mammogram - [facility]. The tissue of both breasts is heterogeneously dense. This may lower the sensitivity of mammography. Current study was also evaluated with a Computer Aided Detection (CAD) system. No significant masses, calcifications, or other findings are seen in either breast. There has been no significant interval change. IMPRESSION: NEGATIVE There is no mammographic evidence of malignancy. A 1 year screening mammogram is recommended. This exam was interpreted at Station ID: [id number]. NOTE: For mammograms, a report in lay terms will be sent to the patient. Approximately 15% of breast malignancies will not be visualized mammographically. In the management of a palpable breast mass, a negative mammogram must not discourage biopsy of a clinically suspicious lesion. Electronically Signed By: Albin gracia/gali:04/20/2021 15:04:13 letter sent: Normal Exam ACR BI-RADS Category 1: Negative [id number]
== END ==
PROVIDERS: PCP Internal Medicine; Referring Provider Internal Medicine; Visit Provider Internal Medicine
DX: Z12.31 Encounter for screening mammogram for malignant neoplasm of breast (principal); Z80.3 Family history of malignant neoplasm of breast
CPT/HCPCS: 77063; 77067

== ENCOUNTER → 2021-07-07 15:47 | Outpatient (CLI) | payer OTHER, SELFPAY ==
--- NOTE | 2021-07-07 15:50 | DI.RAD.S_ITS ---
PROCEDURE: XR LUMBAR SPINE 2-3V INDICATIONS: RT BACK PAIN TECHNIQUE: 3 views of the lumbar spine were acquired. COMPARISON: [facility], CR, XR THORACIC SPINE 3V, 07/07/2021, 15:50. FINDINGS: Bones: 5 [id number] vertebrae are present. Grade 1 spondylolisthesis at the L4-L5 level. Multilevel disc degeneration, most notably and moderate at the L2-L3, L3-L4 and L4-L5 levels. Moderate L4-L5 and L5-S1 facet joint arthropathy. No vertebral body compression fractures. No suspicious bony lesions. Soft tissues: Overlying bowel gas pattern is normal. No suspicious soft tissue calcifications. IMPRESSION: Multilevel spondylosis. Dictated by: Bo Doan RR Interpreted: Hai Anne MD on 07/07/2021 at 16:49 Transcribed by: JAIME on 07/07/2021 at 16:50 Approved by: Hai Anne M.D. on 07/07/2021 at 17:28
--- NOTE | 2021-07-07 15:50 | DI.RAD.S_ITS ---
PROCEDURE: XR FOOT LT MIN 3V INDICATIONS: LEFT FOOT PAIN/INJURY TECHNIQUE: 3 views of the foot were acquired. COMPARISON: None. FINDINGS: Bones: No fractures or dislocations. Mild midfoot and forefoot joint osteoarthritic changes are seen with joint space narrowing and subchondral sclerosis. Tiny plantar and dorsal calcaneal enthesophytes are noted. No suspicious bony lesions. Soft tissues: No tibiotalar joint effusion. Achilles tendon appears normal. IMPRESSION: Tiny calcaneal enthesophytes. Mild midfoot and forefoot joint osteoarthritis. No fracture or dislocation. Dictated by: Hai Anne M.D. on 07/07/2021 at 17:22 Approved by: Hai Anne M.D. on 07/07/2021 at 17:22
--- NOTE | 2021-07-07 15:50 | DI.RAD.S_ITS ---
PROCEDURE: XR THORACIC SPINE 3V INDICATIONS: RT BACK PAIN TECHNIQUE: 3 views of the thoracic spine were acquired. COMPARISON: None. FINDINGS: Bones: No fractures or dislocations. No suspicious bony lesions. 12 pairs of ribs are noted, and appear intact where visualized. Mild multilevel disc height loss with endplate sclerosis and spurring. Soft tissues: No paravertebral stripe thickening. IMPRESSION: Mild multilevel disc degeneration. Dictated by: Bo Doan RR Interpreted: Hai Anne MD on 07/07/2021 at 16:39 Transcribed by: JAIME on 07/07/2021 at 16:40 Approved by: Hai Anne M.D. on 07/07/2021 at 17:28
== END ==
PROVIDERS: PCP Internal Medicine; Referring Provider Internal Medicine; Visit Provider Internal Medicine
DX: M47.816 Spondylosis without myelopathy or radiculopathy, lumbar region; M51.34 Other intervertebral disc degeneration, thoracic region; M47.817 Spondylosis without myelopathy or radiculopathy, lumbosacral region; M19.072 Primary osteoarthritis, left ankle and foot; M54.9 Dorsalgia, unspecified; M79.672 Pain in left foot
CPT/HCPCS: 72072; 72100; 73630

== ENCOUNTER → 2021-08-06 11:55 | Outpatient (CLI) | payer OTHER, SELFPAY | PROVIDERS: PCP Internal Medicine; Referring Provider Internal Medicine; Visit Provider Internal Medicine | DX: Z78.0 Asymptomatic menopausal state (principal); M85.89 Other specified disorders of bone density and structure, multiple sites | CPT/HCPCS: 77080; 77086 ==

== ENCOUNTER → 2022-04-26 08:14 | Outpatient (CLI) | payer OTHER, SELFPAY ==
--- NOTE | 2022-04-26 | DI.MG.S_ITS ---
BILATERAL DIGITAL SCREENING MAMMOGRAM 3D/2D WITH CAD: 04/26/2022 CLINICAL: Routine screening. Family history of breast cancer. Comparison is made to exams dated: 04/20/2021 mammogram, 04/17/2020 mammogram, and 04/11/2019 mammogram - [facility]. Both breasts are heterogeneously dense, which may obscure small masses (category c / 51-75% glandular tissue). Current study was also evaluated with a Computer Aided Detection (CAD) system. No significant masses, calcifications, or other findings are seen in either breast. There has been no significant interval change. IMPRESSION: NEGATIVE There is no mammographic evidence of malignancy. A 1 year screening mammogram is recommended. This exam was interpreted at Station ID: [id number]. NOTE: For mammograms, a report in lay terms will be sent to the patient. Approximately 15% of breast malignancies will not be visualized mammographically. In the management of a palpable breast mass, a negative mammogram must not discourage biopsy of a clinically suspicious lesion. Electronically Signed By: Josh garcia/gali:04/26/2022 08:46:54 letter sent: Normal Exam ACR BI-RADS Category 1: Negative [id number]
== END ==
PROVIDERS: PCP Internal Medicine; Referring Provider Internal Medicine; Visit Provider Internal Medicine
DX: Z12.31 Encounter for screening mammogram for malignant neoplasm of breast (principal); Z80.3 Family history of malignant neoplasm of breast
CPT/HCPCS: 77063; 77067

== ENCOUNTER → 2023-01-30 10:45 | Outpatient (CLI) | payer OTHER, SELFPAY ==
--- NOTE | 2023-01-30 10:58 | DI.MRI.S_ITS ---
PROCEDURE: MR LUMBAR SPINE WO CON INDICATIONS: Lumbago with sciatica, left and right side TECHNIQUE: Noncontrast sagittal T1 spin echo and T2 fast echo, sagittal STIR, and T2 fast spin echo through the lumbar spine. In cases with scoliosis, additional coronal T2 fast spin echo may be performed. COMPARISON: None. FINDINGS: Image quality: Excellent. Alignment and Curvature: There is normal bony alignment. Bone Marrow: Marrow is of normal overall signal. No acute vertebral body compression fractures. Spinal Cord: Conus medullaris terminates at the L1 level. Visualized cord demonstrates normal signal and size. Paraspinous Soft Tissues: No paravertebral masses. T12-L1: No significant disc bulge. The foramina and central canal are patent. L1-L2: No significant disc bulge. The foramina and central canal are patent. L2-L3: The disc is desiccated consistent with degeneration. Disc space narrowing with diffuse disc bulge and disc osteophytes. Moderate bilateral foraminal stenosis. The central canal is patent. L3-L4: The disc is desiccated consistent with degeneration. Disc space narrowing with diffuse disc bulge. The facets are hypertrophic. Mild right and moderate left foraminal stenosis. The central canal has moderate stenosis. L4-L5: The disc is desiccated consistent with degeneration. Grade 1 anterolisthesis Diffuse disc bulge with a right paracentral/foraminal protrusion. Ligamentum flavum hypertrophy. Moderate right foraminal stenosis. Mild left foraminal stenosis. Severe central canal stenosis. L5-S1: No significant disc bulge. The foramina and central canal are patent. IMPRESSION: 1. Multilevel lumbar spondylosis causing foraminal and central canal stenosis as detailed above. 2. Disc disease is most severe at L4-5 where there is a right paracentral/foraminal protrusion which causes moderate right foraminal stenosis and severe central canal stenosis. Dictated by: Indra Hernández M.D. on 01/30/2023 at 12:15 Approved by: Indra Hernández M.D. on 01/30/2023 at 12:22
== END ==
PROVIDERS: PCP Internal Medicine; Referring Provider Internal Medicine; Visit Provider Internal Medicine
DX: M51.16 Intervertebral disc disorders with radiculopathy, lumbar region (principal); M47.26 Other spondylosis with radiculopathy, lumbar region; M48.061 Spinal stenosis, lumbar region without neurogenic claudication; M48.8X6 Other specified spondylopathies, lumbar region; G89.29 Other chronic pain
CPT/HCPCS: 72148

== ENCOUNTER 2023-02-15 12:41 | Emergency (ER) | payer OTHER, SELFPAY ==
[2023-02-15] VITALS (7 sets, daily range): BP systolic 117–134; BP diastolic 53–64; PULSE 57–74; RESP 16–23; TEMP 36.6; O2SAT 96–97; BMI 26.6
--- NOTE | 2023-02-15 12:48 | DI.RAD.S_ITS ---
PROCEDURE: XR CHEST 1V INDICATIONS: chest pain TECHNIQUE: One view of the chest was acquired. COMPARISON: None. FINDINGS: Surgical changes and devices: None. Lungs and pleura: Lungs are clear. No pleural effusions or pneumothorax. Mediastinum: Mediastinal contours appear normal. Heart size is normal. Bones and chest wall: No suspicious bony lesions. Overlying soft tissues appear unremarkable. IMPRESSION: No acute cardiopulmonary abnormality. Dictated by: Idris Claudio M.D. on 02/15/2023 at 13:15 Approved by: Idris Claudio M.D. on 02/15/2023 at 13:16
[2023-02-15] MEDS: ASPIRIN 81 MG CHEW TAB 324 MG PO (12:53)
[2023-02-15 12:59] LABS: Add Manual Diff / Slide Review NO; Basophils Absolute Auto 100 /uL (0-100); Basophils Percent Auto 1.1 % (0-2); Eosinophils Absolute Auto 200 /uL (0-450); Eosinophils Percent Auto 2.6 % (2-4); Hematocrit 40.5 % (36-46); Hemoglobin 13.5 g/dL (12.0-16.0); Lymphocytes Absolute Auto 1500 /uL (1100-4500); Lymphocytes Percent Auto 18.4 % (25-40); Mean Corpuscular HGB Conc 33.2 % (30-36); Mean Corpuscular Hemoglobin 29.6 PG (26-34); Mean Corpuscular Volume 88.9 fL (80-100); Monocytes Absolute Auto 800 /uL (0-900); Monocytes Percent Auto 10.5 % (3-14); Neutrophils Absolute Auto 5300 /uL (1500-7000); Neutrophils Percent Auto 67.4 % (50-75); Platelet Count 336 X10^3/uL (150-400); Red Blood Cell Count 4.55 X10^6/uL (4.0-5.2); Red Cell Distribution Width 13.7 % (11.6-14.8); White Blood Cell Count 7.9 X10^3/uL (4.5-11.0)
[2023-02-15 13:05] LABS: INR 1.1 (0.9-1.3); Prothrombin Time 12.4 SECONDS (10.1-12.7)
[2023-02-15 13:07] LABS: PTT Partial Thromboplastin Tim 35 SECONDS (26-36)
[2023-02-15 13:21] LABS: Alanine Aminotransferase 22 IU/L (<35); Albumin 4.4 g/dL (3.5-5.0); Albumin Globulin Ratio 1.4 (1.0-2.8); Alkaline Phosphatase 41 U/L (38-126); Aspartate Aminotransferase 27 IU/L (14-36); BUN Creatinine Ratio 37.3 (6-22); Bilirubin Total 0.3 mg/dL (0.2-1.3); Blood Urea Nitrogen 25 mg/dL (7-17); Carbon Dioxide 29 mmol/L (22-32); Chloride 101 mmol/L (98-107); Creatine Kinase 39 U/L (30-135); Estimated Glomerular Filt Rate > 60 mL/min (>60); Globulin 3.1 g/dL (1.7-4.1); Glucose 87 mg/dL (80-110); HEMOLYSIS 20 (0-50); Lipase 161 U/L (23-300); Magnesium 2.2 mg/dL (1.6-2.3); Potassium 3.9 mmol/L (3.4-5.1); Sodium 136 mmol/L (137-145); Total Protein 7.5 g/dL (6.3-8.2)
[2023-02-15 13:32] LABS: Troponin I < 0.012 ng/mL (0.01-0.034)
[2023-02-15] MEDS: KETOROLAC 30 MG/ML VIAL 15 MG IV (14:58)
--- NOTE | 2023-02-15 14:58 | ED.CHESTPAIN ---
HPI - Chest Pain General Chief Complaint: Chest Pain Stated Complaint: CHEST PAIN Time Seen by Provider: 02/15/23 14:33 History of Present Illness HPI narrative: Patient here for reproducible substernal chest pain. Does not radiate. No shortness of breath. No numbness tingling or weakness. No syncope. Patient states this started about 3 days ago. This started before her lifting a heavy chair to help her now. Patient states it increases pain with deep breath and bringing her arms above her head. It also hurts on palpation. It is substernal. Patient denies any history of hypertension hyperlipidemia. Does not smoke. No previous history of heart disease, no primary family or children with heart disease. Patient has low heart risk factors and low heart score. Patient has not tried any medications for relief other than Tylenol. It did not help. Patient in no distress at this time Related Data Home Medications Medication Instructions Recorded Confirmed Fexofenadine Hydrochloride 60 mg PO Q DAY ##0 08/10/06 (Brigitte) MULTIVITAMIN (Multivitamin 1 cap PO EVERY DAY ##0 08/10/06 -) SULFAMETHOXAZOLE 500 mg PO ##0 04/16/12 (#SULFAMETHOXAZOLE) paroxetine HCl 20 mg tablet (Paxil) 20 mg PO QDAY ##0 04/16/12 Glucosamine Sulfate (GLUCOSAMINE) 500 mg PO QDAY ##0 04/17/12 HYDROCOD/ACET 5/500 (bulk)- 1 tab PO Q4HP ##0 04/17/12 (Hydrocodon-Acetaminophen 5-500) [CALCIUM CITRATE] PO BID ##0 04/17/12 [FISH OIL] 1,000 mg PO QDAY ##0 04/17/12 amoxicillin 250 mg capsule 250 mg PO BID ##0 04/17/12 chromium picolinate 200 mcg tablet 200 mcg PO QDAY ##0 04/17/12 Previous Rx's Medication Instructions Recorded ciprofloxacin HCl 500 mg tablet 500 mg PO BID #14 tabs 08/06/17 (Cipro) Allergies Allergy/AdvReac Type Severity Reaction Status Date / Time From MACRODANTIN Allergy Unknown Uncoded 08/09/17 13:02 Review of Systems Review of Systems Narrative: GENERAL: negative chills, fatigue, malaise, fever, sweats. HEENT: negative sinus pain, ear pain, sore throat RESPIRATORY: negative dyspnea, cough CARDIOVASCULAR: Positive chest pain, negative palpitations GASTROINTESTINAL: negative nausea, vomiting, abdominal pain : negative dysuria, frequency, hematuria MUSCULOSKELETAL: negative muscle or bony pain SKIN: negative rash, skin lesions NEUROLOGIC: negative weakness, numbness ROS Unobtainable: All systems reviewed & are unremarkable except as noted in HPI and below Exam Narrative Exam Narrative: GENERAL: in no distress, not toxic not dyspneic HEAD: Normocephalic. EYES: Pupils equal round ENT: Mucous membranes moist. NECK: Trachea midline. CARDIOVASCULAR: Regular rate and rhythm, there is reproducible sternal chest tenderness, increased pain with bringing both arms above her head at the substernal area. Hurts with deep breath and coughing as well. RESPIRATORY: Clear to auscultation. Breath sounds equal bilaterally. No wheezes, rales, or rhonchi. GASTROINTESTINAL: Abdomen soft, non-tender EXTREMITIES: No gross deformities. BACK: No flank tenderness. NEURO: AOx4. SKIN: Warm and dry PSYCH: Not anxious, is cooperative Initial Vital Signs Initial Vital Signs: Vital Signs Temperature 97.8 F 02/15/23 12:53 Pulse Rate 74 02/15/23 12:53 Respiratory Rate 16 02/15/23 12:53 Blood Pressure 121/54 L 02/15/23 12:53 Pulse Oximetry 97 02/15/23 12:53 Oxygen Delivery Method Room Air 02/15/23 12:53 Scores HEART Score Heart Score history: Slightly Suspicious Heart Score EKG: Normal Heart Score Age: > or = 65 years old Heart Score risk factors: No known risk factors Heart Score troponin: < or = to normal limit Heart Score Total: 2 Course Orders Ordered: Discontinued Medications Aspirin (Aspirin 81 Mg Chew Tab) 324 mg PO NOW ONE Stop: 02/15/23 12:49 Last Admin: 02/15/23 12:53 Dose: 324 mg Documented By: GRABIEL Sodium Chloride (Normal Saline 0.9%) 500 mls @ 1,000 mls/hr IV BOLUS ONE Stop: 02/15/23 15:29 Last Infusion: 02/15/23 16:01 Dose: Infused Documented By: Admin: 02/15/23 15:03 Dose: 1,000 mls/hr Documented By: GAMA Ketorolac Tromethamine (Ketorolac 30 Mg/Ml Vial) 15 mg IV NOW ONE Stop: 02/15/23 14:53 Last Admin: 02/15/23 14:58 Dose: 15 mg Documented By: GAMA Vital Signs Vital signs: Vital Signs - 8 hr 02/15/23 12:53 02/15/23 14:23 02/15/23 14:30 Temperature 97.8 F Pulse Rate 74 66 61 Respiratory Rate 16 16 22 Blood Pressure 121/54 L 118/57 L 120/53 L Pulse Oximetry 97 96 96 Oxygen Delivery Method Room Air Room Air Room Air 02/15/23 14:45 02/15/23 15:00 02/15/23 15:59 Temperature Pulse Rate 60 58 L 57 L Respiratory Rate 22 23 18 Blood Pressure 120/58 L 117/60 Pulse Oximetry 96 97 97 Oxygen Delivery Method Room Air Room Air Room Air 02/15/23 16:57 Temperature Pulse Rate 59 L Respiratory Rate 16 Blood Pressure 134/64 Pulse Oximetry 96 Oxygen Delivery Method Room Air MDM - Chest Pain Lab Data 02/15/23 12:51 02/15/23 12:51 Labs: Lab Results 02/15/23 02/15/23 Range/Units 12:51 15:01 WBC 7.9 (4.5-11.0) X10^3/uL RBC 4.55 (4.0-5.2) X10^6/uL Hgb 13.5 (12.0-16.0) g/dL Hct 40.5 (36-46) % MCV 88.9 (80-100) fL MCH 29.6 (26-34) PG MCHC 33.2 (30-36) % RDW 13.7 (11.6-14.8) % Plt Count 336 (150-400) X10^3/uL Neut % (Auto) 67.4 (50-75) % Lymph % (Auto) 18.4 L (25-40) % Larue % (Auto) 10.5 (3-14) % Eos % (Auto) 2.6 (2-4) % Baso % (Auto) 1.1 (0-2) % Neut # (Auto) 5300 (6328-3189) /uL Lymph # (Auto) 1500 (8739-0434) /uL Larue # (Auto) 800 (0-900) /uL Eos # (Auto) 200 (0-450) /uL Baso # (Auto) 100 (0-100) /uL PT 12.4 (10.1-12.7) SECONDS INR 1.1 (0.9-1.3) APTT 35 (26-36) SECONDS Sodium 136 L (137-145) mmol/L Potassium 3.9 (3.4-5.1) mmol/L Chloride 101 (98-107) mmol/L Carbon Dioxide 29 (22-32) mmol/L BUN 25 H (7-17) mg/dL Creatinine 0.67 (0.52-1.04) mg/dL Estimated GFR > 60 (>60) mL/min BUN/Creatinine Ratio 37.3 H (6-22) Glucose 87 (80-110) mg/dL Calcium 10.0 (8.4-10.2) mg/dL Magnesium 2.2 (1.6-2.3) mg/dL Total Bilirubin 0.3 (0.2-1.3) mg/dL AST 27 (14-36) IU/L ALT 22 (<35) IU/L Alkaline Phosphatase 41 (38-126) U/L Total Creatine Kinase 39 37 (30-135) U/L Troponin I < 0.012 < 0.012 (0.01-0.034) ng/mL Total Protein 7.5 (6.3-8.2) g/dL Albumin 4.4 (3.5-5.0) g/dL Globulin 3.1 (1.7-4.1) g/dL Albumin/Globulin Ratio 1.4 (1.0-2.8) Lipase 161 (23-300) U/L Imaging Data Chest x-ray: Radiologist's Impression: [address] [address] XRay Report Signed Patient: Cristina Barry MR#: [id number] : 1955 Acct:[id number] Age/Sex: 67 / F Date of Service: 02/15/23 Loc: ED Accession Number: [id number] Procedure: XR chest 1V Ordering Provider: Yao Jones MD PROCEDURE: XR CHEST 1V INDICATIONS: chest pain TECHNIQUE: One view of the chest was acquired. COMPARISON: None. FINDINGS: Surgical changes and devices: None. Lungs and pleura: Lungs are clear. No pleural effusions or pneumothorax. Mediastinum: Mediastinal contours appear normal. Heart size is normal. Bones and chest wall: No suspicious bony lesions. Overlying soft tissues appear unremarkable. IMPRESSION: No acute cardiopulmonary abnormality. Dictated by: Idris Claudio M.D. on 02/15/2023 at 13:15 Approved by: Idris Claudio M.D. on 02/15/2023 at 13:16 CT scan - chest: Radiologist's Impression: [address] [address] [address] Scan Report Signed Patient: Cristina Barry MR#: [id number] : 1955 Acct:[id number] Age/Sex: 67 / F Date of Service: 02/15/23 Loc: ED Accession Number: [id number] Procedure: CT angio chest PE protocol Ordering Provider: Yao Jones MD PROCEDURE: CT ANGIO CHEST PE PROTOCOL INDICATIONS: Chest pain TECHNIQUE: After the administration of intravenous contrast, 2 mm thick sections acquired from the pulmonary apices to the posterior costophrenic angles. 3-dimensional maximum intensity projection (MIP) coronal and sagittal reformats were then acquired through the thorax. For radiation dose reduction, the following was used: automated exposure control, adjustment of mA and/or kV according to patient size. COMPARISON: None. FINDINGS: Image quality: Excellent. Pulmonary arteries: Pulmonary arteries are normal in size, and demonstrate no intraluminal filling defects to suggest central pulmonary embolism. Lungs and pleura: Lungs are clear. No pleural effusions or pneumothorax. Central and peripheral airways are patent. Bibasilar atelectasis. Juxtapleural nodules with smooth margins in the right upper lobe, presumably benign intrapulmonary lymph nodes. Mediastinum: Heart size is enlarged, without pericardial effusion. No mediastinal or hilar adenopathy. Thoracic aorta is normal in caliber and enhancement. Esophagus is normal in caliber, with small hiatal hernia. Bones and chest wall: No suspicious bony lesions. Ribs and thoracic spine appear intact throughout. Thyroid gland contains a left nodule measuring 2.1 cm. No axillary or supraclavicular adenopathy. Abdomen: Visualized upper abdominal solid organs appear normal in the early arterial phase of enhancement. IMPRESSION: No pulmonary embolus. No significant coronary artery calcifications. Small hiatal hernia, which may increase the risk of gastric reflux. Dictated by: Blaise Bravo M.D. on 02/15/2023 at 15:29 Approved by: Blaise Bravo M.D. on 02/15/2023 at 15:32 [facility] Narrative Medical decision making narrative: Patient here for reproducible substernal chest pain. Does not radiate. No shortness of breath. No numbness tingling or weakness. No syncope. Patient states this started about 3 days ago. This started before her lifting a heavy chair to help her now. Patient states it increases pain with deep breath and bringing her arms above her head. It also hurts on palpation. It is substernal. Patient denies any history of hypertension hyperlipidemia. Does not smoke. No previous history of heart disease, no primary family or children with heart disease. Patient has low heart risk factors and low heart score. Patient has not tried any medications for relief other than Tylenol. It did not help. Patient in no distress at this time After history and exam CBC CMP troponin x2 chest x-ray EKG CT chest PE protocol normal saline Toradol [facility] CC: Chest pain Complicating co-morbidities: None Data collected from: Patient and Medical records reviewed: No recent visit for this complaint Differential considered: Includes but not limited to STEMI non-STEMI atypical chest pain angina unstable angina costochondritis pleurisy pulmonary embolism aortic dissection Exam documented above, pertinent findings include: Reproducible sternal chest pain Lab Test results independently reviewed as above. Pertinent findings: Troponin less than 0.012 x2 WBC 7.9 hemoglobin 13.5 INR 1.1 sodium 136 potassium 3.9 GFR greater than 60 AST 27 ALT 22 Independently reviewed EKG normal sinus rhythm rate [address] elevation or depression Imaging studies independently reviewed: Chest x-ray no acute finding CT chest PE protocol no acute finding Consultations: 3:12 p.m.. Spoke with Cardiology on-call dr camacho, no indication for admission. Patient can follow up outpatient with primary care for re-evaluation and outpatient stress test if needed. This is reproducible chest pain, sternal chest wall tenderness Treatments: Normal saline Toradol aspirin Re-evaluations: 4:30 p.m.. Reviewed results with patient . They are reassuring. Troponin x2 are negative CT imaging is reassuring. Patient states pain improved with Toradol but not completely. However she states she had pain before the lifting of the heavy chair to help her but the lifting of the heavy chair made the pain worse. Nontoxic at discharge. Return precautions reviewed with them. They desire discharge home Discussion: Appropriate for discharge home. Exam and laboratory studies and imaging are reassuring. I did review with Cardiology Services well. No indication for admission or medial stress test. Likely not heart related. Appropriate for follow up with primary care for possible outpatient stress test and for re-evaluation. Patient and family agree with this plan. Not toxic. Pain improved with Toradol. Return precautions reviewed with them. They desire discharge home. Patient has low heart score. No hypertension no hyperlipidemia does not smoke. No family history of coronary disease. Heart score of 2 Diagnosis: Chest wall pain Discharge Plan Departure Patient Disposition: Home Clinical Impression: Acute chest wall pain Instructions: DI for Atypical Chest Pain Activity Restrictions/Additional Instructions: Please see your family doctor within a week for re-evaluation and possible scheduled for outpatient stress test for your heart. Today's laboratory studies exam and workup and imaging are reassuring. It appears to be chest wall related pain. Continue ibuprofen for pain. Return if worse if any questions or concerns Prescriptions: No Action Fexofenadine Hydrochloride (Brigitte) 60 mg PO Q DAY Qty: 0 MULTIVITAMIN (Multivitamin -) 1 cap PO EVERY DAY Qty: 0 SULFAMETHOXAZOLE (#SULFAMETHOXAZOLE) 500 mg PO Qty: 0 paroxetine HCl [Paxil] 20 MG tablet 20 mg PO QDAY Qty: 0 [CALCIUM CITRATE] PO BID Qty: 0 chromium picolinate 200 MCG tablet 200 mcg PO QDAY Qty: 0 [FISH OIL] 1,000 mg PO QDAY Qty: 0 amoxicillin 250 MG capsule 250 mg PO BID Qty: 0 Glucosamine Sulfate (GLUCOSAMINE) 500 mg PO QDAY Qty: 0 HYDROCOD/ACET 5/500 (bulk)- (Hydrocodon-Acetaminophen 5-500) 1 tab PO Q4HP Qty: 0 ciprofloxacin HCl [Cipro] 500 MG tablet 500 mg PO BID Qty: 14 0RF Referrals: Rosanne Andersen ARNP [Primary Care Provider] - Stand Alone Forms: Patient Portal/API
[2023-02-15] MEDS: SODIUM CHLORIDE 0.9% 500 ML 1000 ML IV (15:03)
--- NOTE | 2023-02-15 15:13 | PC.NURSE ---
pt taken to CT in NAD
[2023-02-15 15:31] LABS: Creatine Kinase 37 U/L (30-135)
[2023-02-15 15:38] LABS: Troponin I < 0.012 ng/mL (0.01-0.034)
== END 2023-02-15 17:10 | disposition home or self-care (01) ==
PROVIDERS: Emergency Provider Emergency Medicine; PCP Internal Medicine
DX: R07.89 Other chest pain (principal)
CPT/HCPCS: 36415; 71045; 71275; 80053; 82550; 83690; 83735; 84484; 85025; 85610; 85730; 93005; 93010; 96361; 96374; 99284; J1885; Q9967

== ENCOUNTER → 2023-03-29 15:10 | Outpatient (CLI) | payer OTHER, SELFPAY ==
--- NOTE | 2023-03-30 09:20 | DI.NM.S_ITS ---
DATE OF SERVICE: 03/29/2023 PROCEDURE: Exercise stress test. INDICATIONS: Chest pain. CARDIAC STRESS: The patient underwent exercise stress test under the supervision of an attending staff. The patient walked on Grupo protocol for 6 minutes. Achieved 7 METS of workload, MIGUEL -4%. Resting blood pressure 120/68 mmHg. Peak blood pressure 188/76 mmHg. Baseline rhythm was sinus. During stress, no convincing ischemic EKG changes seen. No significant arrhythmias. No claudication or chest pain. The patient felt fatigue. CONCLUSION: Exercise stress test is negative for inducible ischemia. Fair exercise tolerance. Normal hemodynamic response. No significant arrhythmias. No anginal symptoms. Normal recovery. Overall, low-risk study. JhonnyCristina - CONCHITA/marc/ELAINA doc#: [id number]/job#: [id number] dd: 03/29/2023 16:59:00 dt: 03/29/2023 22:25:00 DICTATING /COPIES TO: Kenrick Mitchell MD COPIES MNE: HERMES;
== END ==
PROVIDERS: PCP Internal Medicine; Referring Provider Internal Medicine; Visit Provider Internal Medicine
DX: R07.89 Other chest pain (principal)
CPT/HCPCS: 93017

== ENCOUNTER → 2023-04-29 10:47 | Outpatient (CLI) | payer OTHER, SELFPAY ==
--- NOTE | 2023-04-29 | DI.MG.S_ITS ---
BILATERAL DIGITAL SCREENING MAMMOGRAM 3D/2D WITH CAD: 04/29/2023 CLINICAL: Routine screening. Family history of breast cancer. Comparison is made to exams dated: 04/26/2022 mammogram, 04/20/2021 mammogram, and 04/17/2020 mammogram - [facility]. Both breasts are heterogeneously dense, which may obscure small masses (category c / 51-75% glandular tissue). Current study was also evaluated with a Computer Aided Detection (CAD) system. No significant masses, calcifications, or other findings are seen in either breast. There has been no significant interval change. IMPRESSION: NEGATIVE There is no mammographic evidence of malignancy. A 1 year screening mammogram is recommended. Based on the Tyrer Cuzick model (a risk assessment model) the patient's lifetime risk is 15.3% and her 10 year risk is 9.9%. According to the ACR, ACS, and NCCN guidelines, an annual breast MRI exam along with mammogram is recommended if the patient's lifetime risk is 20% or greater. This exam was interpreted at Station ID: [id number]. NOTE: For mammograms, a report in lay terms will be sent to the patient. Approximately 15% of breast malignancies will not be visualized mammographically. In the management of a palpable breast mass, a negative mammogram must not discourage biopsy of a clinically suspicious lesion. Electronically Signed By: Josh garcia/gali:05/05/2023 17:20:24 letter sent: Normal Exam ACR BI-RADS Category 1: Negative [id number]
== END ==
LOC: MAMMO 10:47
PROVIDERS: PCP Internal Medicine; Referring Provider Internal Medicine; Visit Provider Internal Medicine
DX: Z12.31 Encounter for screening mammogram for malignant neoplasm of breast (principal); R92.333 Mammographic heterogeneous density, bilateral breasts
CPT/HCPCS: 77063; 77067

== ENCOUNTER 2023-08-30 10:00 | Emergency (ER) | payer OTHER, SELFPAY ==
[2023-08-30 10:11] VITALS: BP 117/57; PULSE 53; RESP 14; TEMP 36.7; O2SAT 98; BMI 28.3
--- NOTE | 2023-08-30 12:36 | ED_ITS ---
HPI - Back Pain/Injury General Chief Complaint: Back Pain/Injury Stated Complaint: back pain Time Seen by Provider: 08/30/23 12:05 Source: patient History of Present Illness HPI Narrative: Patient here for exacerbation of chronic back pain. Patient has had significant back problems for the past 2 years. She states gardening she tried catching a wheelbarrow/trailer and strained her back. Since then she has had ongoing back pain. Has seen a patient centered care specialist in [facility], no surgery or injections were done. Patient has had physical therapy and acupuncture. Patient is on meloxicam and Neurontin. She thinks the past 3 days she strain her back. She has not to bend over to do any kind of work however she did some pruning in her bushes 2 days ago. 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 This morning when she got up she could not get out of bed. Pain radiates bilaterally lower back to both ankles. No saddle paresthesia. No numbness tingling or weakness. No bowel or bladder incontinence. Related Data Home Medications Medication Instructions Recorded Confirmed Fexofenadine Hydrochloride 60 mg PO Q DAY ##0 08/10/06 (Brigitte) MULTIVITAMIN (Multivitamin 1 cap PO EVERY DAY ##0 08/10/06 -) SULFAMETHOXAZOLE 500 mg PO ##0 04/16/12 (#SULFAMETHOXAZOLE) paroxetine HCl 20 mg tablet (Paxil) 20 mg PO QDAY ##0 04/16/12 Glucosamine Sulfate (GLUCOSAMINE) 500 mg PO QDAY ##0 04/17/12 HYDROCOD/ACET 5/500 (bulk)- 1 tab PO Q4HP ##0 04/17/12 (Hydrocodon-Acetaminophen 5-500) [CALCIUM CITRATE] PO BID ##0 04/17/12 [FISH OIL] 1,000 mg PO QDAY ##0 04/17/12 amoxicillin 250 mg capsule 250 mg PO BID ##0 04/17/12 chromium picolinate 200 mcg tablet 200 mcg PO QDAY ##0 04/17/12 Previous Rx's Medication Instructions Recorded ciprofloxacin HCl 500 mg tablet 500 mg PO BID #14 tabs 08/06/17 (Cipro) hydrocodone 5 mg-acetaminophen 325 1 tab PO Q6H PRN pain #12 tabs 08/30/23 mg tablet methylprednisolone 4 mg tablets in See Rx Instructions PO .COMPLEX 08/30/23 a dose pack (Medrol (Jairo)) #21 ea Allergies Allergy/AdvReac Type Severity Reaction Status Date / Time nitrofurantoin Allergy Verified 08/30/23 10:11 [From Macrodantin] Review of Systems Review of Systems Narrative: GENERAL: negative chills, fatigue, malaise, fever, sweats. HEENT: negative sinus pain, ear pain, sore throat RESPIRATORY: negative dyspnea, cough CARDIOVASCULAR: negative chest pain, palpitations GASTROINTESTINAL: negative nausea, vomiting, abdominal pain : negative dysuria, frequency, hematuria MUSCULOSKELETAL: Positive muscle or bony pain SKIN: negative rash, skin lesions NEUROLOGIC: negative weakness, numbness Patient History Social History Smoking Status: Unknown if ever smoked Smoking Status: Unknown if ever smoked alcohol intake frequency: holidays/special occasions only Substance Use Type: does not use Exam Narrative Exam Narrative: GENERAL: in no distress, not toxic not dyspneic HEAD: Normocephalic. EYES: Pupils equal round ENT: Mucous membranes moist. NECK: Trachea midline. CARDIOVASCULAR: Regular rate and rhythm RESPIRATORY: Clear to auscultation. Breath sounds equal bilaterally. No wheezes, rales, or rhonchi. GASTROINTESTINAL: Abdomen soft, non-tender EXTREMITIES: No gross deformities. BACK: No flank tenderness. There is reproducible bilateral paralumbar muscle tenderness and spasm. Increase bilateral leg pain at 30?. Light touch intact to bilateral legs. Strong bilateral patellar reflexes and ankle flexion and extension. Patient able to roll to the right side. Skin exposed. Limited range of motion at the waist due to pain. NEURO: AOx4. Clear speech SKIN: Warm and dry PSYCH: Not anxious, is cooperative Initial Vital Signs Initial Vital Signs: Vital Signs Temperature 98.0 F 08/30/23 10:11 Pulse Rate 53 L 08/30/23 10:11 Respiratory Rate 14 08/30/23 10:11 Blood Pressure 117/57 L 08/30/23 10:11 Pulse Oximetry 98 08/30/23 10:11 Oxygen Delivery Method Room Air 08/30/23 10:11 Course Orders Ordered: Discontinued Medications Hydrocodone Bitart/Acetaminophen (Hydrocodone/Acet 5/325 Tablet) 2 tab PO NOW ONE Stop: 08/30/23 12:31 Last Admin: 08/30/23 12:37 Dose: 2 tab Documented By: KIM Ketorolac Tromethamine (Ketorolac 30 Mg/Ml Vial) 30 mg IM NOW ONE Stop: 08/30/23 12:31 Last Admin: 08/30/23 12:39 Dose: 30 mg Documented By: KIM Ondansetron HCl (Ondansetron 4 Mg Odt) 4 mg SL NOW ONE Stop: 08/30/23 12:31 Last Admin: 08/30/23 12:40 Dose: 4 mg Documented By: KIM Prednisone (Prednisone 20 Mg Tablet) 40 mg PO NOW ONE Stop: 08/30/23 12:31 Last Admin: 08/30/23 12:42 Dose: 40 mg Documented By: KIM Vital Signs Vital signs: Vital Signs - 8 hr 08/30/23 10:11 08/30/23 13:22 Temperature 98.0 F 97.8 F Pulse Rate 53 L 50 L Respiratory Rate 14 16 Blood Pressure 117/57 L 121/57 L Pulse Oximetry 98 98 Oxygen Delivery Method Room Air Room Air MDM - Back Pain/Injury [facility] Narrative Medical decision making narrative: Patient here for exacerbation of chronic back pain. Patient has had significant back problems for the past 2 years. She states gardening she tried catching a wheelbarrow/trailer and strained her back. Since then she has had ongoing back pain. Has seen a patient centered care specialist in [facility], no surgery or injections were done. Patient has had physical therapy and acupuncture. Patient is on meloxicam and Neurontin. She thinks the past 3 days she strain her back. She has not to bend over to do any kind of work however she did some pruning in her bushes 2 days ago. 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 This morning when she got up she could not get out of bed. Pain radiates bilaterally lower back to both ankles. No saddle paresthesia. No numbness tingling or weakness. No bowel or bladder incontinence. After history and exam Toradol [place] Zofran prednisone, at this time no imaging indicated. Patient has not sustained significant injury fall or neuro deficits. Patient and agree. No MRI indicated at this time. Patient just had 1 january [facility] Medical records reviewed: No recent visit for this complaint Differential considered: Includes but not limited to acute on chronic back exacerbation pain. Bulge disc sciatica lumbar radiculopathy compression fracture Treatments: [place] Zofran Toradol prednisone Re-evaluations: 1:30 p.m.. Patient states feeling much better. Able to sit up in bed now. She desires discharge home. She has primary care and spine surgeon to follow up with. Short course of pain medication will be provided as well as steroid pack. She will continue home medications. Discussion: Appropriate for discharge home. Patient neurologically intact. No significant neuro deficits. No imaging indicated this time. No blood work indicated. Return precautions reviewed. She desires discharge home Diagnosis: Lumbar strain/lumbar radiculopathy Discharge Plan Departure Patient Disposition: Home Clinical Impression: Acute back pain with radiculopathy Strain of lumbar region Qualifiers: Encounter type: initial encounter Qualified Code(s): S39.012A - Strain of muscle, fascia and tendon of lower back, initial encounter Instructions: DI for Back Strain or Sprain, DI for Lumbar Radiculopathy Activity Restrictions/Additional Instructions: No driving or operating machinery today or when taking prescribed pain medication. Continue steroid pack tomorrow. You may continue home medications. Please see your family doctor and spine provider within a week for re- evaluation. You have likely strained your back due to the activities from this week. Please do continue your home back exercises and preventative measures for back pain. Return if worse if any questions or concerns Prescriptions: New hydrocodone-acetaminophen 5-325 mg tablet 1 tab PO Q6H PRN (Reason: pain) Qty: 12 0RF methylprednisolone [Medrol (Jairo)] 4 mg tablets,dose pack See Rx Instructions .ROUTE .COMPLEX Qty: 21 0RF Rx Instructions: orally per package directions No Action Fexofenadine Hydrochloride (Brigitte) 60 mg PO Q DAY Qty: 0 MULTIVITAMIN (Multivitamin -) 1 cap PO EVERY DAY Qty: 0 SULFAMETHOXAZOLE (#SULFAMETHOXAZOLE) 500 mg PO Qty: 0 paroxetine HCl [Paxil] 20 MG tablet 20 mg PO QDAY Qty: 0 [CALCIUM CITRATE] PO BID Qty: 0 chromium picolinate 200 MCG tablet 200 mcg PO QDAY Qty: 0 [FISH OIL] 1,000 mg PO QDAY Qty: 0 amoxicillin 250 MG capsule 250 mg PO BID Qty: 0 Glucosamine Sulfate (GLUCOSAMINE) 500 mg PO QDAY Qty: 0 HYDROCOD/ACET 5/500 (bulk)- (Hydrocodon-Acetaminophen 5-500) 1 tab PO Q4HP Qty: 0 ciprofloxacin HCl [Cipro] 500 MG tablet 500 mg PO BID Qty: 14 0RF Referrals: Rosanne Andersen ARNP [Primary Care Provider] - Stand Alone Forms: Patient Portal/API
[2023-08-30] MEDS: HYDROCODONE/ACET 5/325 TABLET 2 TAB PO (12:37)
[2023-08-30] MEDS: KETOROLAC 30 MG/ML VIAL IM (12:39)
[2023-08-30] MEDS: ONDANSETRON 4 MG ODT SL (12:40)
[2023-08-30] MEDS: predniSONE 20 MG TABLET 40 MG PO (12:42)
[2023-08-30 13:22] VITALS: BP 121/57; PULSE 50; RESP 16; TEMP 36.6; O2SAT 98
== END 2023-08-30 13:47 | disposition home or self-care (01) ==
PROVIDERS: Emergency Provider Emergency Medicine; PCP Internal Medicine
DX: S39.012A Strain of muscle, fascia and tendon of lower back, initial encounter (principal); M54.16 Radiculopathy, lumbar region
CPT/HCPCS: 96372; 99283; J1885

== ENCOUNTER → 2023-11-17 09:44 | Outpatient (CLI) | payer OTHER, SELFPAY ==
--- NOTE | 2023-11-17 09:45 | DI.RAD.S_ITS ---
PROCEDURE: XR DEXA AXIAL SKELETON INDICATIONS: MENOPAUSE OSTEOPENIA COMPARISON: [facility], CR, XR DEXA AXIAL SKELETON, 08/06/2021, 12:06. FINDINGS: Lumbar Spine: Bone mineral density 1.032 g/cm2, T score -0.1. There is interval 11.2% increase in total lumbar spine bone mineral density. Left Hip: Bone mineral density 0.731 g/cm2, T score -1.7. There is interval 4.2% increase in total left hip bone mineral density. Left Femoral Neck: Bone mineral density 0.605 g/cm2, T score -2.2. There is interval 2.4% increase in left femoral neck bone mineral density. Right Hip: Bone mineral density 0.736 g/cm2, T score -1.7. There is interval 6.6% increase in right total hip bone mineral density. Right Femoral Neck: Bone mineral density 0.615 g/cm2, T score -2.1. There is interval 5.8% increase in right femoral neck bone mineral density. Fracture Risk Calculation (when applicable): 10-year fracture risk of a major osteoporotic fracture 12% and of a hip fracture 2.6%. (T score greater or equal to -1.0 to: NORMAL) (T score from -1.1 to -2.4: OSTEOPENIA) (T score less than or equal to -2.5: OSTEOPOROSIS) IMPRESSION: Osteopenia with increased 10 year fracture risk. Follow-up guidelines as follows: Osteoporosis: Consider a repeat DEXA and Vertebral Fracture Assessment (VFA) exam in 2 years or sooner if medically necessary, to reassess this patient's status. Osteopenia: Consider a repeat DEXA in 2-3 years to reassess this patient's status, or if there is a new clinical indication. Normal: Consider a repeat DEXA in 5 years or sooner, or if there is a new clinical indication. All treatment decisions require clinical judgment and consideration of individual patient factors, including patient preferences, comorbidities, previous drug use, risk factors not captured in the FRAX model (e.g., frailty, falls, vitamin D deficiency, increased bone turnover, interval significant decline in bone density ) and possible under- or over-estimation of fracture risk by FRAX. In addition, the NOF Guide recommends that FDA-approved medical therapies be considered in postmenopausal women and men age >= 50 years with a: * Hip or vertebral (clinical or morphometric) fracture * T-score of <=-2.5 at the spine or hip * Ten-year fracture probability by FRAX of >= 3% for hip fracture or >=20% for major osteoporotic fracture. People with diagnosed cases of osteoporosis or at high risk for fracture should have regular bone mineral density tests. For patients eligible for Medicare, routine testing is allowed once every 2 years. The testing frequency can be increased to one year for patients who have rapidly progressing disease, those who are receiving or discontinuing medical therapy to restore bone mass, or have additional risk factors. Dictated by: Hai Anne M.D. on 11/17/2023 at 12:08 Approved by: Hai Anne M.D. on 11/17/2023 at 12:11
== END ==
PROVIDERS: PCP Internal Medicine; Referring Provider Internal Medicine; Visit Provider Internal Medicine
DX: Z78.0 Asymptomatic menopausal state (principal); M85.89 Other specified disorders of bone density and structure, multiple sites
CPT/HCPCS: 77080

== ENCOUNTER → 2024-01-11 07:41 | Outpatient (CLI) | payer OTHER, SELFPAY ==
--- NOTE | 2024-01-11 07:43 | DI.RAD.S_ITS ---
PROCEDURE: XR LUMBAR SPINE MIN 4V INDICATIONS: BACK PAIN TECHNIQUE: 5 views of the lumbar spine were acquired, including bilateral oblique views. COMPARISON: [facility], CR, XR LUMBAR SPINE 2-3V, 07/07/2021, 15:50. FINDINGS: Bones: 5 nonrib-bearing vertebrae are present. Grade 1 anterolisthesis of L4 on L5 due to facet arthrosis. Moderate disc height loss at L2-3, L3-4, L4-5. Mild disc height loss at remaining levels. Facet arthrosis of L3 through S1. No vertebral body compression fractures. No suspicious bony lesions. Soft tissues: Overlying bowel gas pattern is normal. No suspicious soft tissue calcifications. Oblique images: No pars defects. IMPRESSION: [id number] tricompartmental osteoarthritis. Kellgren-Jonas Grade 2. Dictated by: Blaise Bravo M.D. on 01/11/2024 at 8:37 Approved by: Blaise Bravo M.D. on 01/11/2024 at 8:43
== END ==
PROVIDERS: PCP Internal Medicine; Referring Provider Physical Medicine & Rehabilitation; Visit Provider Physical Medicine & Rehabilitation
DX: M47.816 Spondylosis without myelopathy or radiculopathy, lumbar region (principal); M47.817 Spondylosis without myelopathy or radiculopathy, lumbosacral region; M54.9 Dorsalgia, unspecified
CPT/HCPCS: 72110

== ENCOUNTER 2024-04-04 08:16 | Outpatient (CLI) | payer OTHER, SELFPAY ==
[2024-04-04] VITALS (9 sets, daily range): BP systolic 115–131; BP diastolic 56–90; PULSE 49–59; RESP 15–22; TEMP 36.8; O2SAT 96–100
--- NOTE | 2024-04-04 08:17 | DI.RAD.S_ITS ---
PROCEDURE: PAIN L INTERLAMINAR/CAUDAL INJ INDICATIONS: SPONDYLOSIS COMPARISON: None. FINDINGS/IMPRESSION: Fluoroscopic spot filming was performed to verify placement of spinal needles at the L4-5 level(s), as labeled on the films. Appropriate location(s) of the needle tip(s) was confirmed by injection of iodinated contrast. Dictated by: Blaise Bravo M.D. on 04/04/2024 at 13:02 Approved by: Blaise Bravo M.D. on 04/04/2024 at 13:03
[2024-04-04] MEDS: MIDAZOLAM 2 MG/2 ML VIAL 1 MG IV (09:09)
[2024-04-04] MEDS: BUPIVACAINE 0.25% (PF) VIAL 2 ML INJ (09:15)
[2024-04-04] MEDS: iopamidoL 15 ML VIAL 3 ML INJ (09:15)
[2024-04-04] MEDS: BETAMETHASONE 30 MG/5 ML MDV 12 MG INJ (09:16)
[2024-04-04] MEDS: DEXAMETHASONE 10 MG/ML VIAL INJ (09:16)
--- NOTE | 2024-04-04 09:26 | P.PCN_ITS ---
Date/Time/Diagnoses Date of procedure: 04/04/24 Time of procedure: 09:27 Pre-procedure diagnosis: 1. HNP WITH RADICULAR FEATURES, 2. MULTILEVEL CENTRAL STENOSIS, Post-procedure diagnosis: same Procedure Notes Procedure: 1. FLUOROSCOPICALLY GUIDED CONTRAST CONTROLLED INTERLAMINAR EPIDURAL STEROID INJECTION -L4/5 Indications: Cristina is referred by Dr. Andersen for treatment of Bilateral Foraminal Stenosis R>L LE symptoms. Physician: Bob Bermudez Total Fluoroscopy time (seconds): 9 Total sedation minutes: 16 Complications: none Procedure in detail & Post-procedure care: FINDINGS Multilevel Central Spinal Stenosis with Nerve Root Compression DESCRIPTION OF PROCEDURE Fluoroscopically guided, contrast-controlled L4/5 translaminar epidural steroid injection. Following review of allergy and review of potential side effects and complications, including, but not necessarily limited to, infection, allergic reaction, local tissue breakdown, temporary as well as permanent nerve injury, paralysis, stroke and possible , the patient indicated that the patient understood and agreed to proceed. An informed consent document was signed by the patient, witnessed by a nurse, and placed in the patient's chart. Additionally, other treatment options including modalities, medications, and physical therapy were reviewed with the patient. After review of previous anaesthesic history and IV conscious sedation the patient was deemed safe to proceed with today?s procedure with IV conscious sedation as ASA class II designation. Safety time-out was performed to confirm patient ID, procedure to be performed and site of procedure. IV sedation was accomplished with a combination of 1mg of Versed was administered by the RN after DO order, titrated to patient comfort during the course of the procedure while the patient remained responsive to all verbal commands In the prone position, following sterile prep and drape of the lumbar region, the L4/5 translaminar space was identified fluoroscopically. The skin was anesthetized via a 25-gauge, 1.5inch needle with 1% lidocaine solution. At this point, a 22-gauge short bevel spinal needle was atraumatically introduced and advanced under fluoroscopic guidance into the region of the L4/5 translaminar space. Depth was confirmed on lateral view. Radiological data, including multiple fluoroscopic views of the lumbar spine, reveal a spinal needle at the L4/5 translaminar space. Lateral views then show placement of the needle in the epidural space. Subsequent views show contrast material flowing superiorly and inferiorly in the epidural space. No vascular or intrathecal uptake is observed. At this point, using loss of resistance technique with saline and air, the epidural space was entered. This was confirmed following negative aspiration with injection of approximately 1.5cc of Isovue 200, showing excellent epidural flow without vascular or intrathecal uptake. At this point, 1cc of 1% lidocaine solution combined with 2cc or 10mg of dexamethasone and 6mg betamethasone was injected without incident. The patient tolerated the procedure well without signs or symptoms of complications prior to transfer to the recovery area continued monitoring without incident. The patient was then transferred to the recovery area where they were observed for an appropriate period of time after the injection. The patient reported a VAS score of 6 prior to the procedure and a post- procedure VAS of 0. POST OP INSTRUCTIONS The patient was provided a Pain Log to continue to record their response to the target-specific procedure prior to follow-up visit with their referring physician. Additionally, specific post-injection care instructions and a contact number to our office were provided if concerns arise regarding possible complications associated with the procedure are suspected.
== END 2024-04-04 09:55 | disposition home or self-care (01) ==
PROVIDERS: PCP Internal Medicine; Referring Provider Physical Medicine & Rehabilitation; Visit Provider Physical Medicine & Rehabilitation
DX: M51.16 Intervertebral disc disorders with radiculopathy, lumbar region (principal); M48.061 Spinal stenosis, lumbar region without neurogenic claudication
CPT/HCPCS: 62323; 99152; J0702; J1100; J2250; J3490

== ENCOUNTER → 2024-04-30 09:08 | Outpatient (CLI) | payer OTHER, SELFPAY ==
--- NOTE | 2024-04-30 09:09 | DI.MG.S_ITS ---
BILATERAL DIGITAL SCREENING MAMMOGRAM 3D/2D WITH CAD: 04/30/2024 CLINICAL: Routine screening. Family history of breast cancer. Comparison is made to exams dated: 04/29/2023 mammogram, 04/26/2022 mammogram, and 04/20/2021 mammogram - [facility]. The breasts are heterogeneously dense, which may obscure small masses (category c / 51-75% glandular tissue). Current study was also evaluated with a Computer Aided Detection (CAD) system. No significant masses, calcifications, or other findings are seen in either breast. There has been no significant interval change. IMPRESSION: NEGATIVE There is no mammographic evidence of malignancy. A 1 year screening mammogram is recommended. Based on the Tyrer Cuzick model (a risk assessment model) the patient's lifetime risk is 14.5% and her 10 year risk is 10.1%. According to the ACR, ACS, and NCCN guidelines, an annual breast MRI exam along with mammogram is recommended if the patient's lifetime risk is 20% or greater. This exam was interpreted at Station ID: [id number]. NOTE: For mammograms, a report in lay terms will be sent to the patient. Approximately 15% of breast malignancies will not be visualized mammographically. In the management of a palpable breast mass, a negative mammogram must not discourage biopsy of a clinically suspicious lesion. Electronically Signed By: Josh garcia/gali:04/30/2024 14:09:08 letter sent: Normal Exam ACR BI-RADS Category 1: Negative
== END ==
PROVIDERS: PCP Internal Medicine; Referring Provider Internal Medicine; Visit Provider Internal Medicine
DX: Z12.31 Encounter for screening mammogram for malignant neoplasm of breast (principal); Z80.3 Family history of malignant neoplasm of breast; R92.333 Mammographic heterogeneous density, bilateral breasts
CPT/HCPCS: 77063; 77067

== ENCOUNTER 2024-10-15 08:18 | Outpatient (CLI) | payer OTHER, SELFPAY ==
[2024-10-15] VITALS (15 sets, daily range): BP systolic 107–131; BP diastolic 53–59; PULSE 44–60; RESP 14–20; TEMP 36.8; O2SAT 96–100
[2024-10-15] MEDS: MIDAZOLAM 2 MG/2 ML VIAL IV (09:12)
[2024-10-15] MEDS: BUPIVACAINE 0.25% (PF) VIAL 2 ML INJ (09:14)
[2024-10-15] MEDS: iopamidoL 15 ML VIAL 3 ML INJ (09:16)
[2024-10-15] MEDS: DEXAMETHASONE 10 MG/ML VIAL 20 MG INJ (09:16)
[2024-10-15] MEDS: BETAMETHASONE 30 MG/5 ML MDV 12 MG INJ (09:17)
[2024-10-15] MEDS: BETAMETHASONE 30 MG/5 ML MDV 6 MG INJ (09:17)
--- NOTE | 2024-10-15 09:33 | PM.PROC.IR.1 ---
Date/Time/Diagnoses Date of procedure: 10/15/24 Time of procedure: 09:33 Pre-procedure diagnosis: 1. FORAMINAL STENOSIS WITH LE SYMPTOMS Procedure Notes Procedure: 1. FLUOROSCOPICALLY GUIDED CONTRAST CONTROLLED TRANSFORAMINAL EPIDURAL STEROID INJECTION - BILATERAL L4/5 TFESI Indications: Cristina is referred by Dr. Perez for treatment of Foraminal Stenosis with bilateral LE Symptoms Physician: Bob Bermudez Total Fluoroscopy time (seconds): 15 Total sedation minutes: 16 Complications: none Procedure in detail & Post-procedure care: FINDINGS Foraminal Nerve Root Compression secondary to disc disease and facet hypertrophy DESCRIPTION OF PROCEDURE Following review of allergy and review of potential side effects and complications, including, but not necessarily limited to, infection, allergic reaction, local tissue breakdown, stroke, temporary or permanent nerve injury, paralysis, and possible , the patient indicated that the patient understood and agreed to proceed. An informed consent document was signed by the patient, witnessed by a nurse, and placed in the patient's chart. Additionally, other treatment options including medications, modalities, and physical therapy were reviewed with the patient. After review of previous anaesthesic history and IV conscious sedation the patient was deemed safe to proceed with today?s procedure with IV conscious sedation as ASA class II designation. Safety time-out was performed to confirm patient ID, procedure to be performed and site of procedure. IV sedation was accomplished with a combination of 2mg of Versed was administered by the RN after DO order, titrated to patient comfort during the course of the procedure while the patient remained responsive to all verbal commands In the prone position following sterile prep and drape of the lumbar region, the right L4/5 posterior neuroforamen was identified fluoroscopically. The skin was anesthetized via a 25-gauge 1.5-inch needle with 1% lidocaine solution. At this point, a 25-gauge 3.5-inch spinal needle was atraumatically introduced and advanced under fluoroscopic guidance through the posterior right L4/5 neuroforamen to approximately the anterior aspect of the canal. Depth was confirmed on lateral view. Following negative aspiration, injection of approximately 1.5cc of Isovue 200 under live fluoroscopy in the AP view confirmed excellent flow along the nerve root, into the epidural space without vascular or intrathecal uptake observed Radiological data, including multiple fluoroscopic views of the lumbosacral spine, reveal a spinal needle at the right L4/5 posterior neuroforamen. Subsequent views show flow of contrast material flowing superiorly and inferiorly along the nerve root confirming epidural flow. Subsequently, a test dose of 1.5cc of 1% lidocaine solution was administered and patient was observed for two minutes for signs or symptoms of complications, including abdominal pain, shortness of breath, bilateral upper or lower extremity weakness, nausea and vomiting, prior to steroid injection. At this point, a total of 2cc or 10mg of dexamethasone and 6mg betamethasone was injected without incident. Attention was then refocused to the left L4/5 level where the identical procedure was replicated. The procedure tolerated the procedure well without signs or symptoms of complications prior to transfer to the recovery area continued monitoring without incident. The patient was then transferred to the recovery area where they were observed for an appropriate time after the injection. The patient reported a VAS score of 7 prior to the procedure and a post-procedure VAS of 0. POST OP INSTRUCTIONS The patient was provided a Pain Log to continue to record their response to the target-specific procedure prior to follow-up visit with their referring physician. Additionally, specific post-injection care instructions and a contact number to our office were provided if concerns arise regarding possible complications associated with the procedure are suspected.
== END 2024-10-15 11:05 | disposition home or self-care (01) ==
PROVIDERS: Family Provider Family Medicine; PCP Family Medicine; Referring Provider Physical Medicine & Rehabilitation; Visit Provider Physical Medicine & Rehabilitation
DX: M48.061 Spinal stenosis, lumbar region without neurogenic claudication (principal); M51.16 Intervertebral disc disorders with radiculopathy, lumbar region; M47.26 Other spondylosis with radiculopathy, lumbar region
CPT/HCPCS: 64483; 99152; J0702; J1100; J2250

== ENCOUNTER → 2024-10-27 14:10 | Outpatient (CLI) | payer OTHER, SELFPAY | PROVIDERS: PCP Family Medicine; Visit Provider Chiropractor | DX: R30.0 Dysuria (principal) | CPT/HCPCS: 87077; 87086 ==